=== PATIENT | male | born 1955 | race Caucasian/White ===

== ENCOUNTER 2021-07-22 12:59 | Outpatient (RCR) | payer BC, SELFPAY ==
--- NOTE | 2021-07-22 14:51 | REHOPWC ---
SEATING EVALUATION NOTIFICATION This is to notify provider that Carl May participated in a power mobility device evaluation today. Recommendations were made specific to patient's needs. Seating Assessment documentation has been completed for detailed information on required equipment. The mobility device provider for this case is Reza from [facility] . Please note that no further care plan will be developed on this account. [facility] you [facility]. Please review, sign, date and return this discharge summary WILLIAM. I have been updated about the patient's current status and I agree with discharge from the above service at this time. Referring Physician Date
== END 2021-07-22 16:53 | disposition home or self-care (01) ==
LOC: ANHPT 12:59
PROVIDERS: PCP Internal Medicine
DX: M19.90 Unspecified osteoarthritis, unspecified site (principal); E11.65 Type 2 diabetes mellitus with hyperglycemia
CPT/HCPCS: 97163

== ENCOUNTER 2021-09-04 07:58 | Outpatient (CLI) | payer BC, SELFPAY ==
--- NOTE | ~2021-09-04 | XR_ITS ---
EXAMINATION: XR UGI w barium swallow EXAM DATE: 09/04/2021 09:17 INDICATION: R06.6 -Eating induced hiccuping, progressing frequency. TECHNIQUE: Limited single contrast barium esophagram and upper GI examination was performed by radiol ogchristy Salcido M.D., according to patient abilities. Patient could not support upon weight while s tanding, table position approximately 45 degrees, and then completely horizontal after ingestion. Pul sed dose reduction fluoroscopy was used with fluoroscopic time of 0.4 minutes. The DAP for this proc edure was 120 Gycm2. A total of 51 images obtained for the exam. There is no prior study for compar federico. FINDINGS: There are severe esophageal tertiary contractions, presbyesophagus. No esophageal stricture s or diverticula. Contrast did reflux from the stomach into the esophagus, and although not definitiv melva demonstrated, small sliding gastroesophageal hiatal hernia not excludable. No gross stomach abnor mality, duodenal bulb is unremarkable. IMPRESSION: Severe presbyesophagus, reflux. Reviewed, dictated and finalized at location A.
== END 2021-09-04 07:59 | disposition home or self-care (01) ==
PROVIDERS: PCP Internal Medicine; Visit Provider Internal Medicine
DX: R06.6 Hiccough (principal); K22.89 Other specified disease of esophagus; K21.9 Gastro-esophageal reflux disease without esophagitis
CPT/HCPCS: 74240

== ENCOUNTER 2021-09-19 12:24 | Outpatient (CLI) | payer BC, SELFPAY ==
--- NOTE | ~2021-09-19 | XR_ITS ---
EXAMINATION:XR_[id number]_CR DATE: 09/19/2021 12:54 INDICATION: Cervicalgia TECHNIQUE: AP, lateral, lateral swimmers and odontoid views of the cervical spine are provided. COMPARISON: None FINDINGS: There are 2 mm of anterolisthesis of C2 on C3. The odontoid is intact. No fracture is ident ified. The vertebral body heights are maintained. There is severe loss of intervertebral disc space h eight from C3-4 through C7-T1. There is advanced facet and uncovertebral joint osteoarthritis through out the cervical spine. Prevertebral soft tissues are normal. IMPRESSION: 1. Severe cervical spondylosis without acute findings. Reviewed, dictated and finalized at location F.
== END 2021-09-19 12:25 | disposition home or self-care (01) ==
LOC: ANHIMG 12:29
PROVIDERS: PCP Internal Medicine; Visit Provider Internal Medicine
DX: M47.892 Other spondylosis, cervical region (principal)
CPT/HCPCS: 72040

== ENCOUNTER 2021-10-29 09:51 | Outpatient (CLI) | payer BC, SELFPAY ==
[2021-10-29 10:39] LABS: Hemoglobin A1C 7.6 % (<5.7)
[2021-10-29 10:42] LABS: Alanine Aminotransferase 26 U/L (6-50); Albumin Level 4.4 g/dL (3.5-5.1); Alkaline Phosphatase 101 U/L (38-126); Anion Gap 6 mmol/L (8-16); Aspartate Amino Transferase 29 U/L (17-59); Bilirubin,Total 0.3 mg/dL (0.2-1.3); Blood Urea Nitrogen 18 mg/dL (9-20); Carbon Dioxide 29 mmol/L (22-30); Chloride 104 mmol/L (98-107); Cholesterol 202 mg/dL (0-200); Estimated Glomerular Filt Rate > 60; Glucose 196 mg/dL (65-110); HDL Direct 37 mg/dL; Potassium 4.1 mmol/L (3.4-5.0); Sodium 139 mmol/L (137-145); Triglycerides 225 mg/dL (<150)
[2021-10-29 10:53] LABS: LDL Cholesterol Direct 114 mg/dL
[2021-10-29 11:12] LABS: Prostate Specific Antigen 1.1 ng/mL (< OR = 4.0)
== END 2021-10-29 09:52 | disposition home or self-care (01) ==
LOC: ANHLAB 09:54
PROVIDERS: PCP Internal Medicine; Visit Provider Nurse Practitioner
DX: E78.5 Hyperlipidemia, unspecified (principal); R63.5 Abnormal weight gain; E11.43 Type 2 diabetes mellitus with diabetic autonomic (poly)neuropathy; Z12.5 Encounter for screening for malignant neoplasm of prostate
CPT/HCPCS: 36415; 80053; 80061; 83036; 84153; 84443; G0103

== ENCOUNTER 2021-12-26 00:17 | Inpatient (IN) | payer BC, SELFPAY ==
[2021-12-26] VITALS (18 sets, daily range): BP systolic 103–140; BP diastolic 65–88; PULSE 46–108; RESP 18–26; TEMP 36.8–37.7; O2SAT 94–97; BMI 38.7; BMI 40.6
--- NOTE | ~2021-12-26 | XR_ITS ---
EXAMINATION: XR chest PICC line Exam Date/Time: 12/30/2021 14:20 CDT HISTORY: Double check placement of PICC, POSSIBLY MOVED? Comparison: 12/29/2021. RESULT: Lines, tubes, and devices: Left upper extremity PICC terminates in the left subclavian vein. Lungs and pleura: Crowding, otherwise clear. Cardiomediastinal silhouette: Stable. Other: No acute osseous or upper abdominal finding. IMPRESSION: Left upper extremity PICC terminates in the left subclavian vein, consider advancing by 12 cm. Reviewed, dictated and finalized at location K. IMPRESSION: Left upper extremity PICC terminates in the left subclavian vein, consider adva ncing by 12 cm.
--- NOTE | ~2021-12-26 | CT_ITS ---
CT OF RIGHT upper extremity EXAMINATION: CT UE RT wo con DATE: 12/31/2021 20:32 INDICATION: Swelling, cellulitis. TECHNIQUE: Computed tomography (CT) of the right upper extremity was performed without intravenous co ntrast. Automated exposure control and iterative reconstruction technique were employed. The dose-mitchell gth product was 1060.31 mGy-cm. COMPARISON: None FINDINGS: Limitations: Portions of the posterior elbow excluded from the [id number] coronal reformats. Bones: Moderate degenerative changes in the hand and wrist. Mild degenerative change in the elbow. Ot herwise included osseous structures are within normal limits. There are no erosive or destructive bon y lesions. Soft Tissues:Extensive dermal thickening, subcutaneous fat stranding, and subcutaneous fluid with lay ering mostly posteriorly along the superficial fascial layers from the level of the mid arm through t he forearm and extending into the hand. Hypodense areas in the triceps muscular structure as well as the proximal aspect of portions of the wrist extensor group, where there are deeper inflammatory dozier ges. Fluid: Extensive septations fluid as described, focal walled off fluid collections are difficult to e xclude without contrast. IMPRESSION: Limited noncontrast examination. Extensive cellulitis and edema of the right arm, with findings suspi cious for myositis in the arm and forearm. No focal fluid collection although sensitivity for abscess is low without contrast. No subcutaneous emphysema, noting that necrotizing fasciitis remains a clin ical diagnosis. Reviewed, dictated and finalized at location K. IMPRESSION: Limited noncontrast examination. Extensive cellulitis and edema of the right ar m, with findings suspicious for myositis in the arm and forearm. No focal fluid collection although sensitivity for abscess is low without contrast. No subcut aneous emphysema, noting that necrotizing fasciitis remains a clinical diagnosi s.
--- NOTE | ~2021-12-26 | XR_ITS ---
EXAMINATION: XR forearm RT 2V DATE: 01/02/2022 09:15 INDICATION: Right forearm erythema and draining pus. TECHNIQUE: 2 views of right forearm were obtained. COMPARISON: CT 12/31/2021 FINDINGS: Bone alignment is normal. No fracture. There is severe osteoarthritis of radiolunate joint and first carpometacarpal joint. No elbow joint effusion. There is soft tissue swelling of the forear m. IMPRESSION: 1. Soft tissue swelling of the forearm. No evidence of osteomyelitis. Reviewed, dictated and finalized at location A.
--- NOTE | ~2021-12-26 | XR_ITS ---
EXAMINATION: XR chest port-a-cath/central DATE: 01/01/2022 15:03 INDICATION: Central line placement. TECHNIQUE: A single frontal view of the chest was obtained. COMPARISON: Chest single view 12/30/2021 FINDINGS: There is mild elevation of left hemidiaphragm. No pneumonia, pleural effusion, or pneumotho rax. The heart size is normal. A right internal jugular central venous catheter is seen with tip in t he proximal right atrium. There is an old healed fracture of right clavicle. IMPRESSION: 1. Central line tip in proximal right atrium. Reviewed, dictated and finalized at location A.
--- NOTE | ~2021-12-26 | US_ITS ---
EXAMINATION: US soft tissue UE RT DATE: 01/02/2022 13:04 INDICATION: Abscess formation at the right arm TECHNIQUE: Multiple grayscale and Doppler ultrasound images of the right arm were obtained. COMPARISON: CT dated 12/31/2021 FINDINGS: There is a large complex fluid collection situated in the deep subcutaneous tissues along the superfi cial muscular fascia. Given the appearance and provided clinical history this would be most consisten t with an abscess. The fluid collection was too large to be included on a single image but per discus suellen with the kiln worker the collection was located at the posterior aspect of the arm beginning jus t above the elbow in the distal upper arm and extended caudally to approximately the mid forearm wher e it was unable to be imaged due to a large draining open wound at this location. On transaxial imagi ng the fluid collection measures at least 7 cm in medial to lateral width and up to a centimeter in t hickness Vascular flow is seen within vessels extending across portions of the complex fluid collecti on. The superficial margin of the fluid collection is irregular with an indistinct transition between the more organized-appearing deeper portion of the fluid collection and with a defined transition to a region of likely phlegmonous change with fluid and hypoechoic edema interspersed between lobules o f the cutaneous fat. IMPRESSION: 1. Large abscess in the deep subcutaneous tissues along the posterior aspect of the distal right uppe r arm and proximal to mid right forearm. Reviewed, dictated and finalized at location A. IMPRESSION: 1. Large abscess in the deep subcutaneous tissues along the posterior aspect of the distal right upper arm and proximal to mid right forearm.
--- NOTE | ~2021-12-26 | XR_ITS ---
EXAMINATION: XR chest PICC line DATE: 12/29/2021 11:57 INDICATION: Verify PICC line placement TECHNIQUE: frontal view of the chest was obtained. COMPARISON: Chest radiograph dated 12/26/21 FINDINGS: Left upper extremity peripherally inserted central venous catheter (PICC) tip at the mid superior ve na cava. Unchanged elevation of the left hemidiaphragm. No focal airspace opacities, pulmonary edema, pleural effusion or pneumothorax. Old healed right clavicle fracture. IMPRESSION: 1. Left PICC line tip in the midsuperior vena cava. 2. Unchanged elevation the left hemidiaphragm. No acute cardiopulmonary disease. Reviewed, dictated and finalized at location A. IMPRESSION: 1. Left PICC line tip in the midsuperior vena cava. 2. Unchanged elevation the left hemidiaphragm. No acute cardiopulmonary disease .
--- NOTE | ~2021-12-26 | US_ITS ---
US renal BI 01/09/2022 14:23 Procedure: Realtime transabdominal ultrasound of the kidneys and bladder. Indication: Acute renal insufficiency Comparison: No prior studies for comparison. Findings: Renal echotexture is normal bilaterally without hydronephrosis, contour deforming mass or r enal calculus. The right kidney measures 10.2 cm and left kidney measures 9.6 cm. Bladder within nor mal limits. Impression: 1: Unremarkable renal ultrasound. No stones, masses or hydronephrosis. Reviewed, dictated and finalized at location A. Impression: 1: Unremarkable renal ultrasound. No stones, masses or hydronephrosis.
--- NOTE | ~2021-12-26 | US_ITS ---
EXAMINATION: US venous doppler UE RT DATE: 12/26/2021 13:02 INDICATION: Right arm pain TECHNIQUE: Johnson scale images with and without compression and Doppler images of the right upper extre mity veins were obtained. COMPARISON: None. FINDINGS: The right internal jugular vein, subclavian vein, axillary vein, brachial veins, basilic vein, cephal ic vein, radial vein, and ulnar vein are patent. IMPRESSION: 1. Patent right upper extremity veins. No evidence of deep venous thrombosis. Reviewed, dictated and finalized at location A.
--- NOTE | ~2021-12-26 | US_ITS ---
EXAMINATION: US venous doppler [facility] DATE: 12/31/2021 15:01 INDICATION: Lower limb swelling. TECHNIQUE: Grayscale ultrasound images without and with compression and Doppler ultrasound images of the bilateral lower extremity veins were obtained. COMPARISON: None. FINDINGS: The visualized portions of right common femoral vein, profunda (deep) femoral vein, femoral vein, pop liteal vein, peroneal veins, posterior tibial veins, and greater saphenous vein outflow are patent. T here is a moderate-sized Vargas's cyst on the right. The visualized portions of left common femoral vein, profunda femoral vein, femoral vein, popliteal v ein, peroneal veins, posterior tibial veins, and greater saphenous vein outflow are patent. IMPRESSION: 1. No deep venous thrombosis. 2. Moderate-sized Vargas's cyst on the right. Reviewed, dictated and finalized at location A.
--- NOTE | ~2021-12-26 | XR_ITS ---
XR chest 1V portable 12/26/2021 22:42 Indication: Shortness of breath Procedure: AP portable chest Comparison: No prior studies for comparison. Findings: Cardiomegaly. No focal air space disease, pulmonary edema, pleural effusion or suspected pneumothorax. No acute oss eous abnormality. Healed right midclavicular fracture. There is right paratracheal soft tissue which is likely related to vascular ectasia and technique. Impression: 1: No acute cardiopulmonary disease. Reviewed, dictated and finalized at location A. Impression: 1: No acute cardiopulmonary disease.
[2021-12-26 00:54] LABS: Hematocrit 37.6 % (42.0-52.0); Hemoglobin 12.3 g/dL (14.0-18.0); Mean Corpuscular HGB Conc 32.7 g/dl (32-36); Mean Corpuscular Volume 91.7 fl (80-100); Mean Platelet Volume 10.8 fl (7.4-10.4); Platelet Count Result 156 k/mm3 (150-375); Red Cell Distribution Width 12.6 % (11.5-14.5); White Blood Count 19.4 K/mm3 (4.5-10.0)
[2021-12-26 01:04] LABS: Lactic Acid Reflex 2.4 mmol/L (0.7-2.0)
[2021-12-26 01:10] LABS: Alanine Aminotransferase 22 U/L (6-50); Albumin Level 3.5 g/dL (3.5-5.1); Alkaline Phosphatase 131 U/L (38-126); Anion Gap 14 mmol/L (8-16); Aspartate Amino Transferase 36 U/L (17-59); Blood Urea Nitrogen 33 mg/dL (9-20); Calcium 8.4 mg/dL (8.4-10.2); Carbon Dioxide 24 mmol/L (22-30); Chloride 94 mmol/L (98-107); Estimated Glomerular Filt Rate 47; Glucose 272 mg/dL (65-110); Potassium 4.3 mmol/L (3.4-5.0); Sodium 132 mmol/L (137-145)
[2021-12-26 01:14] LABS: INR 1.2; Prothrombin Time 15.2 Seconds (11.1-14.7)
[2021-12-26 01:18] LABS: Band Neutrophils Percent 12 % (0-6); Lymphocytes Absolute Manual 0.58 K/mm3 (1.1-4.5); Monocytes Absolute Manual 1.16 K/mm3 (0.1-0.90); Monocytes Percent Manual 6 % (3-9); Neutrophils Absolute Manual 17.65 K/mm3 (1.3-6.7); Neutrophils Percent Manual 79 % (46-73); Platelet Estimate Adequate (Adequate); Total Cells Counted 100
[2021-12-26] MEDS: LACTATED RINGERS 1,000 ML 999 ML IV CONT (01:39)
[2021-12-26 01:49] LABS: CRP 43.7 mg/dL (<1.0)
--- NOTE | 2021-12-26 01:57 | ED.EXTPRO ---
HPI - Extremity Problem General Chief complaint: Extremity Problem,Nontraumatic Stated complaint: RIGHT ARM SWELLING Time Seen by Provider: 12/26/21 00:21 History of Present Illness HPI Narrative: 58-year-old male presenting with right arm pain, he states that he had hit it against a door 3 days ago, and he noticed afterwards that his forearm seem to be hurting, and over the last few days it has started getting red, swollen, and the swelling has started moving this arm to the point where it is now past his elbow. He thinks that it might be a blood clot though he has never had 1 before he googled some pictures and thought it looked similar. Endorsing some chills. No nausea or vomiting. He has been taking [place] with some improvement in his symptoms. Related Data Home Medications Medication Instructions Recorded Confirmed levothyroxine 50 mcg capsule 50 mcg PO DAILY 04/23/21 11/27/21 Allergies Allergy/AdvReac Type Severity Reaction Status Date / Time No Known Allergies Allergy Verified 11/27/21 13:51 Review of Systems Review of Systems: CONST: Chills HEENT: No sore throat C/V: No chest pain RESP: No cough GI: No nausea or vomiting : No dysuria. M/S: No joint pain. SKIN: Redness swelling to his right arm NEURO: No focal numbness or weakness PSYCH: [No depression] PMFSH Past Medical History Medical History Anxiety Arthritis Atrial fib/flutter, transient Charcot Acacia Tooth muscular atrophy COVID-19 Diabetes Heartburn High cholesterol History of fracture of tibia Hypertension Peripheral autonomic neuropathy due to diabetes mellitus Skin ulcer SOB (shortness of breath) on exertion Vision changes Family History Family History Father Alcoholism Diabetes mellitus Mother Diabetes mellitus Heart disease Sibling Alcoholism Diabetes mellitus Hypertension Other Arthritis Depression HLD (hyperlipidemia) Kidney disorder Neuropathy Social History Social History Smoking status: Never smoker Second hand tobacco smoke exposure: No Alcohol intake: never Substance use: never Substance use type: does not use Gender identity (if verbalized by the patient): Male Exam Narrative: EXAMINATION OF ORGAN SYSTEMS/BODY AREAS: Constitutional: Vital signs per nursing GENERAL:[No acute distress, non-toxic appearing.] HEAD: Normal with no signs of head trauma. EYES: EOMI, conjunctiva normal ENT: Hearing grossly intact LUNGS: Nonlabored breathing. HEART: [Regular rate and rhythm] ABD: [Soft], nontender EXT: Normal range of motion SKIN: Diffuse induration, erythema, tenderness and warmth to the right upper extremity, with what appears to be a punctate wound to the forearm, and extension of redness up past the elbow NEURO: [Alert and oriented x 3. No gross focal sensory or strength deficits.] PSYCH: Normal affect Course Vital Signs Vital signs: Vital Signs Temperature 99.8 F H 12/26/21 00:17 Pulse Rate 88 12/26/21 00:17 Respiratory Rate 20 12/26/21 00:17 Blood Pressure 137/79 12/26/21 00:17 Pulse Oximetry 97 12/26/21 00:17 Oxygen Delivery Room Air 12/26/21 00:17 Temperature 99.8 F H 12/26/21 00:17 Pulse Rate 88 12/26/21 00:17 Respiratory Rate 20 12/26/21 00:17 Blood Pressure 137/79 12/26/21 00:17 Pulse Oximetry 97 12/26/21 00:17 Oxygen Delivery Room Air 12/26/21 00:17 MDM - Extremity (Nontraumatic) MDM Narrative Medical decision making narrative: 58-year-old male presenting with right arm pain, vital signs notable for slightly elevated temperature, exam notable for indurated erythema and tenderness to the right upper extremity consistent with likely cellulitis, versus less likely DVT, labs including blood cultures obtained, patient started on antibiotics and IV fluids Labs notable
[2021-12-26] MEDS: MORPHINE SULFATE (*CRX) 4 MG/ML INJ IV PUSH (02:15)
[2021-12-26 02:29] LABS: SARS-CoV-2 RNA PCR Negative
--- NOTE | 2021-12-26 02:54 | ADMGEN ---
This patient, Carl Hankins September, was admitted to 3 Med Surg Room 331-01 @0235. Patient/family oriented to hospital policies and general routines including ID bracelet, bed and alarms, visiting hours, pain management, procedures, bathroom and other care routines, personal items, smoking policy, room service/diet, and visiting hours. Information on how to activate the Rapid Response Team has been discussed. Patient/Family are encouraged to report perceived risks to care and to ask questions if they do not understand what they are told or what they should do.
[2021-12-26 03:48] LABS: Reflex Lactic Acid Yes or No Add Lactic
--- NOTE | 2021-12-26 03:51 | PM.IMHP ---
H&P: HPI History of Present Illness Date/Time: 12/26/21 03:51 Chief Complaint: right arm swelling Narrative: this is a 66-year-old male with past medical history significant for type 2 diabetes mellitus, orally controlled, gastroesophageal reflux disease, hypothyroidism, Nahqcrg-Djedv-Ufczb muscular atrophy, peripheral diabetic neuropathy. patient presents to the emergency room due to right upper extremity swelling, redness tenderness, for the last 3 days or so worse in the last day patient unable to lift his arm above his shoulder and unable to bend his arm at the elbow has had some chills, denies night sweats, denies nausea, vomiting, abdominal pain, insect bite, animal bite, wounds. preliminary workup was significant for lactic acid of 2.6 leukocyte count of 19,000. patient has been admitted for further evaluation management and treatment. Review of Systems Review of Systems: Right arm swelling, redness ,tenderness, warmth. Constitutional: Constitutional: Reports chills and Denies night sweats Eyes: Eyes: Denies change in vision ENT: Denies dysphagia and Denies odynophagia Cardiovascular: Cardiovascular: Denies chest pain, Denies syncope, Denies irregular heart rhythm, Denies lightheadedness, Denies palpitations and Denies dyspnea on exertion Gastrointestinal: Gastrointestinal: Denies abdominal pain, Denies dyspepsia, Denies heartburn, Denies diarrhea and Denies vomiting Genitourinary: Genitourinary: Denies dysuria Musculoskeletal: Musculoskeletal: Reports other ( right upper extremity swelling with limited range of motion warmth redness) Integumentary/Breasts: Skin/Breast: Reports swelling, Reports erythema, Reports skin pain and Reports skin swelling Neurologic: Denies vertigo, Denies dizziness, Denies focal weakness and Denies Sensory deficit (Neuro) Psychiatric: Psychiatric: Reports no additional psychiatric complaints and Reports as per HPI Endocrine: Endocrine: Denies cold intolerance, Denies fatigue, Denies flushing, Denies heat intolerance, Denies polyphagia, Denies polydipsia and Denies palpitations Hematologic/Lymphatic: Hematologic/Lymphatic: Reports no additional hematologic/lymphatic complaints and Reports as per HPI Allergic/Immunologic: Allergic/Immunologic: Reports no additional allergic/immunologic complaints and Reports as per HPI [facility] Past Medical History Medical History (Updated 12/26/21 @ 05:13 by Jg Cooper MD) Anxiety Arthritis Atrial fib/flutter, transient Charcot Acacia Tooth muscular atrophy COVID-19 Diabetes Heartburn High cholesterol History of fracture of tibia Hypertension Peripheral autonomic neuropathy due to diabetes mellitus Skin ulcer SOB (shortness of breath) on exertion Vision changes Family History Family History Father Alcoholism Diabetes mellitus Mother Diabetes mellitus Heart disease Sibling Alcoholism Diabetes mellitus Hypertension Other Arthritis Depression HLD (hyperlipidemia) Kidney disorder Neuropathy Social History Social History Smoking status: Never smoker Second hand tobacco smoke exposure: No Alcohol intake: never Substance use: never Substance use type: does not use Gender identity (if verbalized by the patient): Male Spiritual care concerns: No Meds Home Medications and Allergies Home Medications Medication Instructions Recorded Confirmed Type levothyroxine 50 mcg capsule 50 mcg PO DAILY 04/23/21 12/26/21 History amlodipine 5 mg tablet 5 mg PO DAILY #30 tabs 09/26/21 12/26/21 Rx gabapentin 100 mg capsule 100 mg PO Q8H #90 caps 09/26/21 12/26/21 Rx meloxicam 15 mg tablet 15 mg PO DAILY #30 tabs 09/26/21 12/26/21 Rx pantoprazole 20 mg tablet,delayed 20 mg PO QAM #90 tabs 10/03/21 12/26/21 Rx release metformin 500 mg tablet 500 mg PO DAILY #90 tabs 10/29/21 12/26/21 Rx amiodarone 200 mg tablet 20
[2021-12-26] MEDS: IPRATROPIUM BR 0.02% INH SOLN 0.5 MG/2.5 ML VIAL INHALATION ×2 (05:51→23:16)
[2021-12-26] MEDS: ALBUTEROL SULFATE NEB 2.5 MG/3 ML INH INHALATION (05:51)
[2021-12-26] MEDS: HYDROcodone/acetaminophen (*CRX) 10-325 MG TABLET 1 TAB PO (06:16)
[2021-12-26 06:46] LABS: Basophils Absolute Auto 0.1 K/mm3 (0.0-0.1); Basophils Percent Auto 0.8 % (0.2-1.2); Eosinophils Absolute Auto 0.1 K/mm3 (0-0.3); Eosinophils Percent Auto 0.4 % (0-4.4); Hematocrit 37.3 % (42.0-52.0); Hemoglobin 12.3 g/dL (14.0-18.0); Immature Granulocyte Percent A 1.4 % (0-0.5); Lymphocytes Absolute Auto 0.46 K/mm3 (0.9-3.2); Lymphocytes Percent Auto 3.1 % (18.3-44.2); Mean Corpuscular Hemoglobin 30.2 pg (26-34); Mean Corpuscular Volume 91.6 fl (80-100); Mean Platelet Volume 11.1 fl (7.4-10.4); Monocytes Absolute Auto 1.1 K/mm3 (0.1-0.6); Monocytes Percent Auto 7.3 % (2.6-8.5); Neutrophils Absolute Auto 12.9 K/mm3 (1.3-6.7); Platelet Count Result 145 k/mm3 (150-375); Red Blood Count 4.07 M/mm3 (4.6-6.20); Red Cell Distribution Width 12.7 % (11.5-14.5); White Blood Count 14.8 K/mm3 (4.5-10.0)
[2021-12-26] MEDS: LEVOTHYROXINE SODIUM 50 MCG TABLET PO (06:55)
[2021-12-26] MEDS: GABAPENTIN 100 MG CAPSULE PO ×3 (06:55→21:07)
[2021-12-26 07:14] LABS: Anion Gap 13 mmol/L (8-16); Blood Urea Nitrogen 33 mg/dL (9-20); Calcium 8.2 mg/dL (8.4-10.2); Carbon Dioxide 23 mmol/L (22-30); Chloride 95 mmol/L (98-107); Estimated CRCL calculation 62 ml/min; Estimated Glomerular Filt Rate 47; Glucose 238 mg/dL (65-110); Magnesium 1.8 mg/dL (1.6-2.3); Phosphorus 3.4 mg/dL (2.5-4.5); Sodium 131 mmol/L (137-145)
--- NOTE | 2021-12-26 08:25 | PM.IMPN ---
Progress Note: A&P Assessment and Plan (1) Sepsis: Code(s): A41.9 - Sepsis, unspecified organism Status: Acute Assessment and Plan: Monitor I&Os, vital signs, neuro status and patient is a fall risk Monitor serum electrolytes, CBC, WBC, temperature curve and follow cultures Provide IV fluid resuscitation for hemodynamic stability IV Vancomycin, consult pharmacy to dose, send Vancomycin trough levels before 4th dose, Zosyn 3.375mg Q 6 hours P.r.n. 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 Status: Acute Assessment and Plan: unchanged (5) Essential hypertension: Code(s): I10 - Essential (primary) hypertension Status: Acute Assessment and Plan: continue home meds (6) Type 2 diabetes mellitus: Qualifiers: Diabetes mellitus complication detail: with autonomic neuropathy Diabetes mellitus complication status: with neurologic complications Diabetes mellitus group home insulin use: without group home use Qualified Code(s): E11.43 - Type 2 diabetes mellitus with diabetic autonomic (poly)neuropathy Code(s): E11.9 - Type 2 diabetes mellitus without complications Status: Acute Assessment and Plan: insulin sliding scale as needed 1800 calorie carb consistent diet (7) URSULA (acute kidney injury): Code(s): N17.9 - Acute kidney failure, unspecified Status: Acute Assessment and Plan: likely secondary to sepsis receiving IV fluids repeat BMP in a.m. Subjective Date/time seen: 12/26/21 08:25 Patient was evaluated this morning at bedside. He was sitting upright eating breakfast. The patient continues receive IV fluids for an elevated lactic acid of 3.0, repeat lactic acid in 6 hours. He receives IV vancomycin and Zosyn for cellulitic right upper extremity. Appears extremely swollen. Patient is able to make a fist with his hand although is minimally painful. Patient does report slight improvement since yesterday since starting the antibiotics. Will continue IV antibiotics and discuss length of stay with the patient. Monitor renal function as CSF slight URSULA as well. Pulse rate is slightly up at 10:29 a.m. respiration rate 24 and he does. Afebrile this time , however the patient did run a slight temp of 99.8? around midnight.. Vital signs otherwise stable. No acute complaints by RN at bedside. Discussed possible markings for cellulitic upper extremity with RN. They will tripp is right upper extremity in order to monitor possible regression of cellulitic appearance. Review of Systems Review of Systems: All systems reviewed & are unremarkable except as noted in HPI and below Exam Narrative: General: No acute distress. Mental Status: Awake, alert and oriented to person, place, and time with clear speech. Skin: Skin in warm, dry and intact without rashes or lesions On left upper extremity, right and left lower extremity.. Right upper extremity swollen, erythema, warmth and 2 to 3+ pitting edema from his hand up to his right shoulder. No weeping noted. Head: Normocephalic and atraumatic. Eyes: Conjunctivae are clear without exudates or hemorrhage. Sclera is non-icteric. EOM are intact, PERRLA. Ears: The external ear and canal are non-tender and without swelling or discharge. Nose: Nasal mucosa is pink and moist. Septum midline. Nares patent bilaterally. Throat: Oral mucosa pink and moist with good dentition. Tongue midline. Neck: The neck sup
[2021-12-26] MEDS: MICONAZOLE NITRATE 2% CREAM 30 GM TUBE 1 APPLIC TOPICAL (08:26)
[2021-12-26] MEDS: MELOXICAM 7.5 MG TABLET 15 MG PO (08:28)
[2021-12-26] MEDS: PANTOPRAZOLE SOD SESQUIHYDRATE 20 MG TAB PO (08:28)
[2021-12-26] MEDS: ENOXAPARIN 40 MG/0.4 ML SYRINGE SUB-Q (09:25)
[2021-12-26] MEDS: SODIUM CHLORIDE 0.9% IV 1,000 ML 100 ML IV CONT ×2 (10:52→23:58)
[2021-12-26 12:09] LABS: Erythrocyte Sedimentation Rate 61 mm/hr (0-20)
[2021-12-26 12:30] LABS: Hemoglobin A1C 8.5 % (<5.7)
--- NOTE | 2021-12-26 15:39 | PCPTNOTE ---
Attempted PT evaluation, Patient refused stating he does not want the DETENTION he lives in to have any leverage against him to return to his apartment. RN aware. Will follow.
[2021-12-26] MEDS: AMIODARONE HCL 200 MG TABLET PO (16:46)
[2021-12-26] MEDS: amLODIPine BESYLATE 5 MG TABLET PO (21:07)
[2021-12-26] MEDS: HYDROmorphone HCL INJ (*CRX) 1 MG/ML SYR IV PUSH (21:07)
[2021-12-26] MEDS: ALBUTEROL SULFATE NEB 2.5 MG/3 ML INH 1.25 MG INHALATION (23:16)
[2021-12-27] MEDS: HYDROmorphone HCL INJ (*CRX) 1 MG/ML SYR IV PUSH ×3 (02:29→21:24)
[2021-12-27 02:43] VITALS: O2SAT 97
[2021-12-27 05:26] VITALS: BP 139/80; PULSE 89; RESP 20; TEMP 36.7; O2SAT 91
[2021-12-27] MEDS: LEVOTHYROXINE SODIUM 50 MCG TABLET PO (05:58)
[2021-12-27] MEDS: GABAPENTIN 100 MG CAPSULE PO ×3 (05:58→21:24)
[2021-12-27 06:25] LABS: Hematocrit 37.6 % (42.0-52.0); Hemoglobin 12.5 g/dL (14.0-18.0); Mean Corpuscular HGB Conc 33.2 g/dl (32-36); Mean Corpuscular Hemoglobin 30.5 pg (26-34); Mean Corpuscular Volume 91.7 fl (80-100); Mean Platelet Volume 11.1 fl (7.4-10.4); Platelet Count Result 183 k/mm3 (150-375); Red Cell Distribution Width 12.6 % (11.5-14.5); White Blood Count 17.2 K/mm3 (4.5-10.0)
[2021-12-27 06:36] LABS: Lactic Acid Reflex 2.3 mmol/L (0.7-2.0)
--- NOTE | 2021-12-27 06:54 | PM.IMPN ---
Progress Note: A&P Assessment and Plan (1) Sepsis: Code(s): A41.9 - Sepsis, unspecified organism Status: Acute Assessment and Plan: Monitor I&Os, vital signs, neuro status and patient is a fall risk Monitor serum electrolytes, CBC, WBC, temperature curve and follow cultures Provide IV fluid resuscitation for hemodynamic stability IV Vancomycin, consult pharmacy to dose, send Vancomycin trough levels before 4th dose, Zosyn 3.375mg Q 6 hours P.r.n. Tylenol, Zofran, and melatonin Pulling a warm like appearance out of his arm approximately 1 week ago He denies any known consuming water that was consumed. Consider this in the differential if patient does not respond to the antibiotics. 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 Status: Acute Assessment and Plan: unchanged (5) Essential hypertension: Code(s): I10 - Essential (primary) hypertension Status: Acute Assessment and Plan: continue home meds (6) Type 2 diabetes mellitus: Qualifiers: Diabetes mellitus complication detail: with autonomic neuropathy Diabetes mellitus complication status: with neurologic complications Diabetes mellitus manager intermediate insulin use: without senior living use Qualified Code(s): E11.43 - Type 2 diabetes mellitus with diabetic autonomic (poly)neuropathy Code(s): E11.9 - Type 2 diabetes mellitus without complications Status: Acute Assessment and Plan: insulin sliding scale as needed 1800 calorie carb consistent diet (7) URSULA (acute kidney injury): Code(s): N17.9 - Acute kidney failure, unspecified Status: Acute Assessment and Plan: likely secondary to sepsis receiving IV fluids repeat BMP in a.m. Subjective Date/time seen: 12/27/21 06:54 Your to have a spear although he has not regressed from the skin marking lines were performed by nursing staff on 12/26/2021. Patient continues on IV antibiotics, did he seems to improve however CRP increased. continue with IV antibiotics peer discussing the patient's plan of care with him patient reported that it appeared that he pulled out a worm underneath his skin. Patient denies any recent travel or drinking contaminated water. With tenuous IV antibiotic treatment however may consider possible RA under the skin creating cellulitic appearance. Of note patient has no weeping on his right arm, patient has scratched in 3 areas on his arms and appears to be weeping Review of Systems Review of Systems: All systems reviewed & are unremarkable except as noted in HPI and below Exam Narrative: General: No acute distress. Mental Status: Awake, alert and oriented to person, place, and time with clear speech. Skin: Skin in warm, dry and intact without rashes or lesions On left upper extremity, right and left lower extremity.. Right upper extremity swollen, erythema, warmth and 2 to 3+ pitting edema from his hand up to his right shoulder. When the lateral aspect of the right arm Head: Normocephalic and atraumatic. Eyes: Conjunctivae are clear without exudates or hemorrhage. Sclera is non-icteric. EOM are intact, PERRLA. Ears: The external ear and canal are non-tender and without swelling or discharge. Nose: Nasal mucosa is pink and moist. Septum midline. Nares patent bilaterally. Throat: Oral mucosa pink and moist with good dentition. Tongue midline. Neck: The neck supple without adenopathy. Trachea midline. No JVD. Cardiac: S1 and S2 regular rate and rhythm. No murmurs, gallops, or rubs auscultated. Respiratory: Chest wall symmetric, non
[2021-12-27] MEDS: HYDROcodone/acetaminophen (*CRX) 10-325 MG TABLET 1 TAB PO ×2 (06:56→15:45)
[2021-12-27 08:00] VITALS: PULSE 89; RESP 20; O2SAT 91
[2021-12-27] MEDS: MICONAZOLE NITRATE 2% CREAM 30 GM TUBE 1 APPLIC TOPICAL (08:06)
[2021-12-27] MEDS: ENOXAPARIN 40 MG/0.4 ML SYRINGE SUB-Q (08:06)
[2021-12-27] MEDS: PANTOPRAZOLE SOD SESQUIHYDRATE 20 MG TAB PO (08:06)
[2021-12-27] MEDS: MELOXICAM 7.5 MG TABLET 15 MG PO (08:06)
[2021-12-27 08:21] LABS: Alanine Aminotransferase 22 U/L (6-50); Alkaline Phosphatase 115 U/L (38-126); Anion Gap 9 mmol/L (8-16); Aspartate Amino Transferase 30 U/L (17-59); Bilirubin,Total 0.7 mg/dL (0.2-1.3); Blood Urea Nitrogen 43 mg/dL (9-20); Calcium 7.9 mg/dL (8.4-10.2); Carbon Dioxide 24 mmol/L (22-30); Chloride 91 mmol/L (98-107); Estimated CRCL calculation 55 ml/min; Estimated Glomerular Filt Rate 40; Glucose 228 mg/dL (65-110); Magnesium 1.8 mg/dL (1.6-2.3); Potassium 4.4 mmol/L (3.4-5.0); Sodium 124 mmol/L (137-145)
[2021-12-27 08:23] LABS: CRP > 45.0 mg/dL (<1.0)
[2021-12-27 09:18] LABS: Reflex Lactic Acid Yes or No Add Lactic
[2021-12-27 09:50] LABS: Lactic Acid 2.1 mmol/L (0.7-2.0)
[2021-12-27] MEDS: SODIUM CHLORIDE 0.9% IV 1,000 ML 100 ML IV CONT (09:54)
--- NOTE | 2021-12-27 10:01 | PC.NURSE ---
IV and fluids restarted this shift
--- NOTE | 2021-12-27 10:25 | PC.NURSE ---
RUE elevated, pt declining at this time.
[2021-12-27 14:00] VITALS: BP 125/75; PULSE 65; RESP 18; TEMP 35.7; O2SAT 95
[2021-12-27] MEDS: MUPIROCIN 2% OINT 22 GM TUBE 1 APPLIC TOPICAL ×2 (14:35→21:24)
--- NOTE | 2021-12-27 15:30 | PCPTNOTE ---
Attempted PT evaluation, patient refused despite education/encouragement. RN aware, will follow
[2021-12-27 16:42] VITALS: PULSE 65
[2021-12-27] MEDS: AMIODARONE HCL 200 MG TABLET PO (16:42)
[2021-12-27] MEDS: amLODIPine BESYLATE 5 MG TABLET PO (21:24)
[2021-12-27 22:00] VITALS: BP 112/73; PULSE 91; RESP 16; TEMP 36.2; O2SAT 96
--- NOTE | 2021-12-27 22:10 | PCRCNOTE ---
pt refused apnea link tonight. Per pt he needs a night to think about the test. RN informed
[2021-12-28] VITALS (8 sets, daily range): BP systolic 106–133; BP diastolic 81–90; PULSE 79–110; RESP 16–26; TEMP 36.1–36.2; O2SAT 96–99
[2021-12-28] MEDS: HYDROmorphone HCL INJ (*CRX) 1 MG/ML SYR IV PUSH ×2 (01:13→09:09)
[2021-12-28] MEDS: GABAPENTIN 100 MG CAPSULE PO ×3 (05:42→20:48)
[2021-12-28] MEDS: LEVOTHYROXINE SODIUM 50 MCG TABLET PO (05:42)
[2021-12-28 06:25] LABS: Hematocrit 41.8 % (42.0-52.0); Hemoglobin 12.6 g/dL (14.0-18.0); Mean Corpuscular HGB Conc 30.1 g/dl (32-36); Mean Corpuscular Hemoglobin 29.5 pg (26-34); Mean Corpuscular Volume 97.9 fl (80-100); Mean Platelet Volume 10.7 fl (7.4-10.4); Platelet Count Result 186 k/mm3 (150-375); Red Blood Count 4.27 M/mm3 (4.6-6.20); Red Cell Distribution Width 12.9 % (11.5-14.5); White Blood Count 20.1 K/mm3 (4.5-10.0)
[2021-12-28] MEDS: ALBUTEROL SULFATE NEB 2.5 MG/3 ML INH INHALATION ×2 (06:27→19:15)
[2021-12-28 06:32] LABS: Alanine Aminotransferase 21 U/L (6-50); Albumin Level 2.7 g/dL (3.5-5.1); Alkaline Phosphatase 118 U/L (38-126); Anion Gap 11 mmol/L (8-16); Aspartate Amino Transferase 38 U/L (17-59); Bilirubin,Total 0.7 mg/dL (0.2-1.3); Blood Urea Nitrogen 53 mg/dL (9-20); Calcium 7.5 mg/dL (8.4-10.2); Carbon Dioxide 19 mmol/L (22-30); Chloride 91 mmol/L (98-107); Estimated CRCL calculation 59 ml/min; Estimated Glomerular Filt Rate 43; Glucose 249 mg/dL (65-110); Potassium 4.5 mmol/L (3.4-5.0); Sodium 121 mmol/L (137-145)
--- NOTE | 2021-12-28 07:04 | PM.IMPN ---
Progress Note: A&P Assessment and Plan (1) Sepsis: Code(s): A41.9 - Sepsis, unspecified organism Status: Acute Assessment and Plan: Monitor I&Os, vital signs, neuro status and patient is a fall risk Monitor serum electrolytes, CBC, WBC, temperature curve and follow cultures Provide IV fluid resuscitation for hemodynamic stability IV Vancomycin, consult pharmacy to dose, send Vancomycin trough levels before 4th dose, Zosyn 3.375mg Q 6 hours. Is a Maile was added to the patient's medication regimen. His arm does not appear to be significantly improved, his WBC is trending up. Continue monitor clinical status. Pulses to the right upper extremity WNL, sensation still intact. Capillary refill appropriate. P.r.n. Tylenol, Zofran, and melatonin Pulling a warm like appearance out of his arm approximately 1 week ago He denies any known consuming water that was consumed. Consider this in the differential if patient does not respond to the antibiotics. 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 Status: Acute Assessment and Plan: unchanged (5) Essential hypertension: Code(s): I10 - Essential (primary) hypertension Status: Acute Assessment and Plan: continue home meds (6) Type 2 diabetes mellitus: Qualifiers: Diabetes mellitus complication detail: with autonomic neuropathy Diabetes mellitus complication status: with neurologic complications Diabetes mellitus chcf insulin use: without filler leaf cutter long use Qualified Code(s): E11.43 - Type 2 diabetes mellitus with diabetic autonomic (poly)neuropathy Code(s): E11.9 - Type 2 diabetes mellitus without complications Status: Acute Assessment and Plan: insulin sliding scale as needed 1800 calorie carb consistent diet (7) URSULA (acute kidney injury): Code(s): N17.9 - Acute kidney failure, unspecified Status: Acute Assessment and Plan: likely secondary to sepsis receiving IV fluids repeat BMP in a.m. (8) Urinary retention: Code(s): R33.9 - Retention of urine, unspecified Status: Acute Assessment and Plan: patient may be experiencing urinary retention. Patient reports that he is unable to completely empty his bladder. Will obtain a urine culture, bladder scan and insert Solis catheter. Subjective Date/time seen: 12/28/21 07:04 Patient's arm appears significantly unchanged. Continues to weep. Add azithromycin to the patient's unresponsiveness to therapy. Patient does not appear to be a good historian. Stories changed multiple times. Today the patient was very concerned about his penis and the size of his penis to not only myself but also physical therapy and nursing staff. Patient has requested Solis catheter be placed because he is unable to appropriately use the urinal because of his body habitus. patient is moved minimally and mobile and in pain with his right upper extremity therefore a Solis catheter order will be placed. Patient was also unwilling to work with physical therapy and occupational therapy. After several days of attempting the patient to work with them and his persistent refusal will discontinue physical therapy and occupational for now until the patient pain becomes compliant. Review of Systems Review of Systems: All systems reviewed & are unremarkable except as noted in HPI and below Exam Narrative: General: No acute distress. Mental Status: Awake, alert and oriented to person, place, and time with clear speech. Skin: Skin in warm, dry and intact without ra
[2021-12-28] MEDS: MUPIROCIN 2% OINT 22 GM TUBE 1 APPLIC TOPICAL ×2 (08:17→20:47)
[2021-12-28] MEDS: ENOXAPARIN 40 MG/0.4 ML SYRINGE SUB-Q (08:17)
[2021-12-28] MEDS: MICONAZOLE NITRATE 2% CREAM 30 GM TUBE 1 APPLIC TOPICAL (08:17)
[2021-12-28] MEDS: MELOXICAM 7.5 MG TABLET 15 MG PO (08:18)
[2021-12-28] MEDS: PANTOPRAZOLE SOD SESQUIHYDRATE 20 MG TAB PO (08:18)
--- NOTE | 2021-12-28 09:55 | PCOTNOTE ---
Attempted to see pt. for occupational therapy evaluation. Pt. refuses to work with therapy at this time. Pt. has refused PT attempts on 12/26, 12/27, and 12/28. Pt. educated on benefits of participation in therapy services, pt. stated disinterest at this time. Hospitalist updated and agreeable to canceling of therapy orders until pt. willing to participate. Hospitalist agreeable to follow up with patient.
--- NOTE | 2021-12-28 10:05 | PCPTNOTE ---
Attempted to see pt. for physical therapy evaluation. Pt. refuses to work with therapy at this time. Pt. has refused PT attempts on 12/26, 12/27, and 12/28. Pt. educated on benefits of participation in therapy services, pt. stated disinterest at this time. Hospitalist updated and agreeable to canceling of therapy orders until pt. willing to participate. Hospitalist agreeable to follow up with patient.
[2021-12-28] MEDS: HYDROcodone/acetaminophen (*CRX) 10-325 MG TABLET 1 TAB PO ×2 (10:42→23:20)
--- NOTE | 2021-12-28 10:52 | PC.NURSE ---
bladder scanned pt, no retention.
[2021-12-28] MEDS: AMIODARONE HCL 200 MG TABLET PO (16:21)
[2021-12-28] MEDS: SODIUM CHLORIDE 0.9% IV 1,000 ML 100 ML IV CONT ×2 (18:59→20:46)
[2021-12-28] MEDS: IPRATROPIUM BR 0.02% INH SOLN 0.5 MG/2.5 ML VIAL INHALATION (19:15)
[2021-12-28] MEDS: amLODIPine BESYLATE 5 MG TABLET PO (20:47)
[2021-12-28 22:13] LABS: Vancomycin Trough 9.9 ug/mL (10.0-20.0)
--- NOTE | 2021-12-28 22:17 | PCRCNOTE ---
pt refused apnea link. RN informed.
[2021-12-29] VITALS (16 sets, daily range): BP systolic 117–135; BP diastolic 65–82; PULSE 73–88; RESP 16–24; TEMP 36.1–37.2; O2SAT 90–100
--- NOTE | 2021-12-29 01:37 | PC.NURSE ---
Pt refused Tylenol for shoulder pain that was suggested by doctor.
[2021-12-29] MEDS: HYDROmorphone HCL INJ (*CRX) 1 MG/ML SYR IV PUSH ×2 (03:24→20:35)
[2021-12-29] MEDS: ALBUTEROL SULFATE NEB 2.5 MG/3 ML INH INHALATION ×4 (05:18→22:31)
[2021-12-29] MEDS: LEVOTHYROXINE SODIUM 50 MCG TABLET PO (05:55)
[2021-12-29] MEDS: MAGNES & ALUM HYD/SIMETH/DIPHENHYD/LIDOCAINE 119 ML MOUTHWASH BY MOUTH ×5 (05:55→20:36)
[2021-12-29] MEDS: GABAPENTIN 100 MG CAPSULE PO ×3 (05:55→20:29)
[2021-12-29] MEDS: PANTOPRAZOLE SOD SESQUIHYDRATE 20 MG TAB PO (08:08)
[2021-12-29] MEDS: ENOXAPARIN 40 MG/0.4 ML SYRINGE SUB-Q (08:08)
[2021-12-29] MEDS: MELOXICAM 7.5 MG TABLET 15 MG PO (08:08)
[2021-12-29] MEDS: MICONAZOLE NITRATE 2% CREAM 30 GM TUBE 1 APPLIC TOPICAL (08:09)
[2021-12-29] MEDS: MUPIROCIN 2% OINT 22 GM TUBE 1 APPLIC TOPICAL ×2 (08:09→20:36)
--- NOTE | 2021-12-29 08:13 | PM.IMPN ---
Progress Note: A&P Assessment and Plan (1) Sepsis: Code(s): A41.9 - Sepsis, unspecified organism Status: Acute Assessment and Plan: Monitor I&Os, vital signs, neuro status and patient is a fall risk Monitor serum electrolytes, CBC, WBC, temperature curve and follow cultures Provide IV fluid resuscitation for hemodynamic stability IV Vancomycin, consult pharmacy to dose, send Vancomycin trough levels before 4th dose, Zosyn 3.375mg Q 6 hours. Azithromax was added to the patient's medication regimen. His arm does appear to be improved, his WBC pending. Continue monitor clinical status. Pulses to the right upper extremity WNL, sensation still intact. Capillary refill appropriate. P.r.n. 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 Status: Acute Assessment and Plan: unchanged (5) Essential hypertension: Code(s): I10 - Essential (primary) hypertension Status: Acute Assessment and Plan: continue home meds (6) Type 2 diabetes mellitus: Qualifiers: Diabetes mellitus complication detail: with autonomic neuropathy Diabetes mellitus complication status: with neurologic complications Diabetes mellitus prison insulin use: without prison use Qualified Code(s): E11.43 - Type 2 diabetes mellitus with diabetic autonomic (poly)neuropathy Code(s): E11.9 - Type 2 diabetes mellitus without complications Status: Acute Assessment and Plan: insulin sliding scale as needed 1800 calorie carb consistent diet (7) URSULA (acute kidney injury): Code(s): N17.9 - Acute kidney failure, unspecified Status: Acute Assessment and Plan: likely secondary to sepsis receiving IV fluids repeat BMP in a.m. (8) Urinary retention: Code(s): R33.9 - Retention of urine, unspecified Status: Acute Assessment and Plan: patient may be experiencing urinary retention. Patient reports that he is unable to completely empty his bladder. Will obtain a urine culture, bladder scan and insert Solis catheter. Subjective Date/time seen: 12/29/21 08:13 Patient is alert and oriented. He appears clinically better after azithromycin was added to his medication treatment. Patient's labs pending. Lost IV access. Patient will have a PICC line placed today. Cellulitis to the right upper extremity appears better and there was regression from the line. Solis catheter was not inserted. continue monitor patient and receive IV antibiotics. Monitor vital signs. No acute events reported by RN during the night. Review of Systems Review of Systems: All systems reviewed & are unremarkable except as noted in HPI and below Exam Narrative: General: No acute distress. Mental Status: Awake, alert and oriented to person, place, and time with clear speech. Skin: Skin in warm, dry and intact without rashes or lesions On left upper extremity, right and left lower extremity.. Right upper extremity swollen, erythema, warmth and 2 to 3+ pitting edema from his hand up to his right shoulder. When the lateral aspect of the right arm Head: Normocephalic and atraumatic. Eyes: Conjunctivae are clear without exudates or hemorrhage. Sclera is non-icteric. EOM are intact, PERRLA. Ears: The external ear and canal are non-tender and without swelling or discharge. Nose: Nasal mucosa is pink and moist. Septum midline. Nares patent bilaterally. Throat: Oral mucosa pink and moist with good dentition. Tongue midline. Neck: The neck supple without adenopathy. Trachea mid
[2021-12-29] MEDS: HYDROcodone/acetaminophen (*CRX) 10-325 MG TABLET 1 TAB PO ×2 (10:17→18:47)
--- NOTE | 2021-12-29 10:52 | PC.NURSE ---
Andres CALLAWAY [place] called for PICC line placement, stated will be here in 30 minutes.
--- NOTE | 2021-12-29 11:36 | PC.NURSE ---
stat cxr for picc line placement ordered.
[2021-12-29 13:35] LABS: Hematocrit 34.2 % (42.0-52.0); Hemoglobin 11.5 g/dL (14.0-18.0); Mean Corpuscular HGB Conc 33.6 g/dl (32-36); Mean Corpuscular Hemoglobin 30.3 pg (26-34); Mean Corpuscular Volume 90.2 fl (80-100); Mean Platelet Volume 10.2 fl (7.4-10.4); Platelet Count Result 221 k/mm3 (150-375); Red Blood Count 3.79 M/mm3 (4.6-6.20); Red Cell Distribution Width 12.7 % (11.5-14.5); White Blood Count 18.2 K/mm3 (4.5-10.0)
[2021-12-29 13:48] LABS: Alanine Aminotransferase 33 U/L (6-50); Albumin Level 2.8 g/dL (3.5-5.1); Alkaline Phosphatase 121 U/L (38-126); Anion Gap 7 mmol/L (8-16); Aspartate Amino Transferase 37 U/L (17-59); Bilirubin,Total 0.6 mg/dL (0.2-1.3); Blood Urea Nitrogen 45 mg/dL (9-20); Calcium 7.9 mg/dL (8.4-10.2); Carbon Dioxide 25 mmol/L (22-30); Chloride 97 mmol/L (98-107); Estimated CRCL calculation 72 ml/min; Estimated Glomerular Filt Rate 55; Glucose 405 mg/dL (65-110); Potassium 4.1 mmol/L (3.4-5.0); Sodium 129 mmol/L (137-145)
[2021-12-29] MEDS: AMIODARONE HCL 200 MG TABLET PO (16:15)
[2021-12-29] MEDS: SODIUM CHLORIDE 0.9% IV 1,000 ML 100 ML IV CONT ×2 (16:49→23:18)
[2021-12-29] MEDS: amLODIPine BESYLATE 5 MG TABLET PO (20:29)
[2021-12-29] MEDS: CENTRAL LINE FLUSH 10 ML IV PUSH (23:18)
[2021-12-30] VITALS (10 sets, daily range): BP systolic 116–139; BP diastolic 78–92; PULSE 75–113; RESP 16–22; TEMP 35.9–37; O2SAT 95–100
[2021-12-30] MEDS: ALBUTEROL SULFATE NEB 2.5 MG/3 ML INH INHALATION ×3 (01:12→14:27)
[2021-12-30] MEDS: HYDROmorphone HCL INJ (*CRX) 1 MG/ML SYR IV PUSH ×3 (02:53→21:28)
[2021-12-30] MEDS: MAGNES & ALUM HYD/SIMETH/DIPHENHYD/LIDOCAINE 119 ML MOUTHWASH BY MOUTH ×5 (04:55→20:13)
[2021-12-30] MEDS: CENTRAL LINE FLUSH 10 ML IV PUSH ×3 (05:57→23:14)
[2021-12-30] MEDS: GABAPENTIN 100 MG CAPSULE PO ×3 (05:57→23:14)
[2021-12-30 06:28] LABS: Hematocrit 34.2 % (42.0-52.0); Hemoglobin 11.1 g/dL (14.0-18.0); Mean Corpuscular HGB Conc 32.5 g/dl (32-36); Mean Corpuscular Hemoglobin 30.1 pg (26-34); Mean Corpuscular Volume 92.7 fl (80-100); Mean Platelet Volume 10.4 fl (7.4-10.4); Platelet Count Result 210 k/mm3 (150-375); Red Blood Count 3.69 M/mm3 (4.6-6.20); Red Cell Distribution Width 12.8 % (11.5-14.5); White Blood Count 17.2 K/mm3 (4.5-10.0)
[2021-12-30 06:44] LABS: Alanine Aminotransferase 36 U/L (6-50); Albumin Level 2.7 g/dL (3.5-5.1); Alkaline Phosphatase 107 U/L (38-126); Anion Gap 5 mmol/L (8-16); Aspartate Amino Transferase 38 U/L (17-59); Bilirubin,Total 0.6 mg/dL (0.2-1.3); Blood Urea Nitrogen 36 mg/dL (9-20); Calcium 7.3 mg/dL (8.4-10.2); Carbon Dioxide 28 mmol/L (22-30); Chloride 99 mmol/L (98-107); Estimated CRCL calculation 84 ml/min; Estimated Glomerular Filt Rate > 60; Glucose 291 mg/dL (65-110); Potassium 4.8 mmol/L (3.4-5.0); Sodium 132 mmol/L (137-145)
[2021-12-30] MEDS: LEVOTHYROXINE SODIUM 50 MCG TABLET PO (07:00)
--- NOTE | 2021-12-30 07:56 | PM.IMPN ---
Progress Note: A&P Assessment and Plan (1) Sepsis: Code(s): A41.9 - Sepsis, unspecified organism Status: Acute Assessment and Plan: Monitor I&Os, vital signs, neuro status and patient is a fall risk Monitor serum electrolytes, CBC, WBC, temperature curve and follow cultures Provide IV fluid resuscitation for hemodynamic stability IV Vancomycin, consult pharmacy to dose, send Vancomycin trough levels before 4th dose, Zosyn 3.375mg Q 6 hours. consitnue Azithromax. His arm does appears to be improving. Continue monitor clinical status. Pulses to the right upper extremity WNL, sensation still intact. Capillary refill appropriate. P.r.n. 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 Status: Acute Assessment and Plan: unchanged (5) Essential hypertension: Code(s): I10 - Essential (primary) hypertension Status: Acute Assessment and Plan: continue home meds (6) Type 2 diabetes mellitus: Qualifiers: Diabetes mellitus complication detail: with autonomic neuropathy Diabetes mellitus complication status: with neurologic complications Diabetes mellitus deputy assessor insulin use: without deputy assessor use Qualified Code(s): E11.43 - Type 2 diabetes mellitus with diabetic autonomic (poly)neuropathy Code(s): E11.9 - Type 2 diabetes mellitus without complications Status: Acute Assessment and Plan: insulin sliding scale as needed 1800 calorie carb consistent diet (7) URSULA (acute kidney injury): Code(s): N17.9 - Acute kidney failure, unspecified Status: Acute Assessment and Plan: likely secondary to sepsis receiving IV fluids repeat BMP in a.m. (8) Urinary retention: Code(s): R33.9 - Retention of urine, unspecified Status: Acute Assessment and Plan: patient may be experiencing urinary retention. Patient reports that he is unable to completely empty his bladder. Will obtain a urine culture, bladder scan and insert Solis catheter. (9) Hyponatremia: Code(s): E87.1 - Hypo-osmolality and hyponatremia Status: Acute Assessment and Plan: continue with fluid restriction, provide gentle IV fluid resusitation limit free water intake Improved Subjective Date/time seen: 12/30/21 07:56 patient is doing significantly better today. He is able to up and ambulate independently with assistance. Patient will have physical therapy and occupational therapy work with him prior to discharge. Patient's arms appears significantly improved. Patient's WBC downtrending. Sodium 132 this morning. Improved. he denies any acute complaints. Review of Systems Review of Systems: All systems reviewed & are unremarkable except as noted in HPI and below Exam Narrative: General: No acute distress. Mental Status: Awake, alert and oriented to person, place, and time with clear speech. Skin: Skin in warm, dry and intact without rashes or lesions On left upper extremity, right and left lower extremity. Right upper extremity swollen, erythema, warmth and 2 + pitting edema from his hand up to his right shoulder. When the lateral aspect of the right arm. Head: Normocephalic and atraumatic. Eyes: Conjunctivae are clear without exudates or hemorrhage. Sclera is non-icteric. EOM are intact, PERRLA. Ears: The external ear and canal are non-tender and without swelling or discharge. Nose: Nasal mucosa is pink and moist. Septum midline. Nares patent bilaterally. Throat: Oral mucosa pink and moist with good dentition. Tongue
--- NOTE | 2021-12-30 08:43 | PCRCNOTE ---
Pt is refusing to take 0800 tx, pt was informed of the need for tx, but the pt still refused, nurse notified of refusal.
[2021-12-30] MEDS: ENOXAPARIN 40 MG/0.4 ML SYRINGE SUB-Q (09:23)
[2021-12-30] MEDS: PANTOPRAZOLE SOD SESQUIHYDRATE 20 MG TAB PO (09:23)
[2021-12-30] MEDS: MELOXICAM 7.5 MG TABLET 15 MG PO (09:23)
[2021-12-30] MEDS: MICONAZOLE NITRATE 2% CREAM 30 GM TUBE 1 APPLIC TOPICAL (09:24)
[2021-12-30] MEDS: MUPIROCIN 2% OINT 22 GM TUBE 1 APPLIC TOPICAL ×2 (09:24→20:11)
[2021-12-30] MEDS: BENZOCAINE/MENTHOL (*BKC) 18 EA LOZENGE 1 LOZENGE PO (09:24)
[2021-12-30] MEDS: SODIUM CHLORIDE 0.9% IV 1,000 ML 100 ML IV CONT (12:40)
--- NOTE | 2021-12-30 14:06 | PCPTNOTE ---
Attempted PT evaluation, Pt is ADAMANT he does NOT want therapy. Per patient, he was told by ASSISTED I was krystin I didn't do the evaluation. Hospitalist aware and transplant coordinator aware. Orders will be DC.
[2021-12-30] MEDS: AMIODARONE HCL 200 MG TABLET PO (17:49)
[2021-12-30] MEDS: HYDROcodone/acetaminophen (*CRX) 10-325 MG TABLET 1 TAB PO (17:53)
[2021-12-30] MEDS: amLODIPine BESYLATE 5 MG TABLET PO (20:12)
[2021-12-30 21:08] LABS: Glucose Point of Care 365 mg/dl (65-105)
[2021-12-30] MEDS: INSULIN ASPART (*BKC) 100 UNITS/ML 6 UNITS SUB-Q (23:55)
[2021-12-31] VITALS (7 sets, daily range): BP systolic 126–160; BP diastolic 73–103; PULSE 76–87; RESP 16–20; TEMP 35.8–36.1; O2SAT 92–100
[2021-12-31] MEDS: HYDROmorphone HCL INJ (*CRX) 1 MG/ML SYR IV PUSH ×4 (00:25→21:26)
[2021-12-31] MEDS: MAGNES & ALUM HYD/SIMETH/DIPHENHYD/LIDOCAINE 119 ML MOUTHWASH BY MOUTH ×6 (00:27→21:12)
[2021-12-31] MEDS: BENZOCAINE/MENTHOL (*BKC) 18 EA LOZENGE 1 LOZENGE PO (04:54)
[2021-12-31 05:08] LABS: Hematocrit 38.8 % (42.0-52.0); Hemoglobin 12.2 g/dL (14.0-18.0); Mean Corpuscular HGB Conc 31.4 g/dl (32-36); Mean Corpuscular Hemoglobin 29.7 pg (26-34); Mean Corpuscular Volume 94.4 fl (80-100); Platelet Count Result 273 k/mm3 (150-375); Red Blood Count 4.11 M/mm3 (4.6-6.20); Red Cell Distribution Width 12.9 % (11.5-14.5); White Blood Count 15.6 K/mm3 (4.5-10.0)
[2021-12-31 05:24] LABS: Alanine Aminotransferase 40 U/L (6-50); Albumin Level 2.9 g/dL (3.5-5.1); Alkaline Phosphatase 116 U/L (38-126); Anion Gap 6 mmol/L (8-16); Aspartate Amino Transferase 43 U/L (17-59); Bilirubin,Total 0.5 mg/dL (0.2-1.3); Blood Urea Nitrogen 25 mg/dL (9-20); Calcium 8.1 mg/dL (8.4-10.2); Carbon Dioxide 31 mmol/L (22-30); Chloride 99 mmol/L (98-107); Estimated CRCL calculation 92 ml/min; Estimated Glomerular Filt Rate > 60; Glucose 195 mg/dL (65-110); Potassium 4.2 mmol/L (3.4-5.0); Sodium 136 mmol/L (137-145)
--- NOTE | 2021-12-31 05:31 | PCRCNOTE ---
Patient refused 1999 and 199 breathing treatments, stating he is feeling fine. Therapist waited till 050 to write off 199 tx in case patient called for it.
[2021-12-31 05:52] LABS: Vancomycin Trough 14.5 ug/mL (10.0-20.0)
[2021-12-31] MEDS: GABAPENTIN 100 MG CAPSULE PO ×3 (06:10→21:13)
[2021-12-31] MEDS: LEVOTHYROXINE SODIUM 50 MCG TABLET PO (06:10)
[2021-12-31 07:54] LABS: Glucose Point of Care 280 mg/dl (65-105)
[2021-12-31] MEDS: MICONAZOLE NITRATE 2% CREAM 30 GM TUBE 1 APPLIC TOPICAL (08:33)
[2021-12-31] MEDS: PANTOPRAZOLE SOD SESQUIHYDRATE 20 MG TAB PO (08:33)
[2021-12-31] MEDS: MUPIROCIN 2% OINT 22 GM TUBE 1 APPLIC TOPICAL ×2 (08:33→21:12)
[2021-12-31] MEDS: MELOXICAM 7.5 MG TABLET 15 MG PO (08:33)
[2021-12-31] MEDS: INSULIN ASPART (*BKC) 100 UNITS/ML SUB-Q ×3 (08:33→17:33)
[2021-12-31] MEDS: ALBUTEROL SULFATE NEB 2.5 MG/3 ML INH INHALATION (09:14)
[2021-12-31 11:49] LABS: Glucose Point of Care 336 mg/dl (65-105)
--- NOTE | 2021-12-31 13:26 | PM.IMPN ---
Progress Note: A&P Assessment and Plan (1) Sepsis: Code(s): A41.9 - Sepsis, unspecified organism Status: Acute Assessment and Plan: Monitor I&Os, vital signs, neuro status and patient is a fall risk Monitor serum electrolytes, CBC, WBC, temperature curve and follow cultures Resuscitated with IV fluids admission IV Vancomycin, consult pharmacy to dose, send Vancomycin trough levels before 4th dose, Zosyn 3.375mg Q 6 hours. consitnue Azithromax. His arm does appears to be improving. Continue monitor clinical status. Pulses to the right upper extremity WNL, sensation still intact. Capillary refill appropriate. P.r.n. Tylenol, Zofran, and melatonin (2) Cellulitis of right upper extremity: Code(s): L03.113 - Cellulitis of right upper limb Status: Acute Assessment and Plan: Continue IV antibiotics cultures in progress supportive care Will get CT upper extremity to rule out any underlying drainable collections Leukocytosis improved on current regimen. Will continue same for now Will check ASO titer (3) Atrial fib/flutter, transient: Status: Acute Assessment and Plan: continue amiodarone Not on anticoagulation. Does not follow With any invas tech. 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 Status: Acute Assessment and Plan: unchanged (5) Essential hypertension: Code(s): I10 - Essential (primary) hypertension Status: Acute Assessment and Plan: continue home meds (6) Type 2 diabetes mellitus: Qualifiers: Diabetes mellitus senior living insulin use: without terminal manager use Diabetes mellitus complication status: with neurologic complications Diabetes mellitus complication detail: with autonomic neuropathy Qualified Code(s): E11.43 - Type 2 diabetes mellitus with diabetic autonomic (poly)neuropathy Code(s): E11.9 - Type 2 diabetes mellitus without complications Status: Acute Assessment and Plan: insulin sliding scale as needed 1800 calorie carb consistent diet (7) URSULA (acute kidney injury): Code(s): N17.9 - Acute kidney failure, unspecified Status: Acute Assessment and Plan: likely secondary to sepsis receiving IV fluids repeat BMP in a.m. (8) Urinary retention: Code(s): R33.9 - Retention of urine, unspecified Status: Acute Assessment and Plan: patient may be experiencing urinary retention. bladder scan reported to be unremarkable however in her low PT resolved. He does report nocturia and frequency of urination Will check urinalysis and urine culture We will add Flomax as suspect he has underlying prostatic hypertrophy. (9) Hyponatremia: Code(s): E87.1 - Hypo-osmolality and hyponatremia Status: Acute Assessment and Plan: continue with fluid restriction, provide gentle IV fluid resusitation limit free water intake Improved Plan Morbid obesity Suspect underlying sleep apnea apnea will do apnea link test Conversational dyspnea no formal lung diagnosis reported. Will check echocardiogram does have history of atrial fibrillation but remains in sinus rhythm he is on chronic amiodarone therapy so lung toxicity related to chronic amiodarone therapy is possibility as well may need high-resolution CT scan to further evaluate his dyspnea. Will check his BNP as well as underlying congestive heart failure is suspected as well. Will give a dose of Lasix today for his lower extremity edema and overall hypervolemia and follow clinical course. He is also quite positive since admission. Cumulative 14 L positive. Weight is up 6 kilos but has not been checked since past few days. Will put on weight every day. . # No lower extremity edema attributes to his amlodipine. With conversational dyspnea noted no prior diagnosis of COPD or any lung disease along with a nonsmoker/ never smoker
[2021-12-31 16:14] LABS: Glucose Point of Care 369 mg/dl (65-105)
[2021-12-31] MEDS: FUROSEMIDE INJ 40 MG/4 ML VIAL IV PUSH (17:32)
[2021-12-31] MEDS: AMIODARONE HCL 200 MG TABLET PO (17:32)
[2021-12-31 19:30] LABS: NT Pro B Type Natriuretic Pept 1100 pg/mL (5-100)
[2021-12-31] MEDS: amLODIPine BESYLATE 5 MG TABLET PO (21:12)
[2021-12-31 21:44] LABS: Glucose Point of Care 206 mg/dl (65-105)
[2021-12-31] MEDS: INSULIN GLARGINE (*BKC) 100 UNITS/ML 15 UNITS SUB-Q (22:41)
[2022-01-01] MEDS: HYDROcodone/acetaminophen (*CRX) 10-325 MG TABLET 1 TAB PO ×3 (02:48→18:11)
--- NOTE | 2022-01-01 04:03 | PCRCNOTE ---
patient refused 2000 neb tx, 0200 neb tx, and the apnea study; RN is aware
[2022-01-01] MEDS: GABAPENTIN 100 MG CAPSULE PO ×3 (05:19→21:03)
[2022-01-01] MEDS: LEVOTHYROXINE SODIUM 50 MCG TABLET PO (05:21)
[2022-01-01 05:43] VITALS: BP 149/79; PULSE 67; RESP 18; TEMP 36.6; O2SAT 95
--- NOTE | 2022-01-01 07:02 | PCCARD ---
Patient refused echocarddiogram exam. Nurse Alicea was notified.
[2022-01-01 07:41] LABS: Glucose Point of Care 203 mg/dl (65-105)
[2022-01-01 08:21] VITALS: O2SAT 97
[2022-01-01] MEDS: INSULIN ASPART (*BKC) 100 UNITS/ML 6 UNITS SUB-Q ×3 (08:40→18:10)
[2022-01-01] MEDS: PANTOPRAZOLE SOD SESQUIHYDRATE 20 MG TAB PO (08:41)
[2022-01-01] MEDS: INSULIN ASPART (*BKC) 100 UNITS/ML SUB-Q ×3 (08:41→18:10)
[2022-01-01] MEDS: TAMSULOSIN HCL 0.4 MG CAPSULE PO (08:41)
[2022-01-01] MEDS: MAGNES & ALUM HYD/SIMETH/DIPHENHYD/LIDOCAINE 119 ML MOUTHWASH BY MOUTH ×4 (08:41→21:04)
[2022-01-01] MEDS: MELOXICAM 7.5 MG TABLET 15 MG PO (08:41)
[2022-01-01] MEDS: MICONAZOLE NITRATE 2% CREAM 30 GM TUBE 1 APPLIC TOPICAL (08:43)
[2022-01-01] MEDS: MUPIROCIN 2% OINT 22 GM TUBE 1 APPLIC TOPICAL ×2 (08:43→21:05)
--- NOTE | 2022-01-01 09:03 | PC.NURSE ---
will give patient his antibiotic when he regains IV access.
[2022-01-01 10:00] LABS: Hematocrit 37.8 % (42.0-52.0); Hemoglobin 11.9 g/dL (14.0-18.0); Mean Corpuscular HGB Conc 31.5 g/dl (32-36); Mean Corpuscular Hemoglobin 29.7 pg (26-34); Mean Corpuscular Volume 94.3 fl (80-100); Mean Platelet Volume 10.1 fl (7.4-10.4); Platelet Count Result 272 k/mm3 (150-375); Red Blood Count 4.01 M/mm3 (4.6-6.20); Red Cell Distribution Width 12.8 % (11.5-14.5); White Blood Count 14.6 K/mm3 (4.5-10.0)
[2022-01-01 10:18] LABS: Alanine Aminotransferase 37 U/L (6-50); Albumin Level 2.8 g/dL (3.5-5.1); Alkaline Phosphatase 106 U/L (38-126); Anion Gap 5 mmol/L (8-16); Aspartate Amino Transferase 34 U/L (17-59); Bilirubin,Total 0.4 mg/dL (0.2-1.3); Blood Urea Nitrogen 16 mg/dL (9-20); Calcium 7.5 mg/dL (8.4-10.2); Carbon Dioxide 33 mmol/L (22-30); Chloride 98 mmol/L (98-107); Estimated CRCL calculation 101 ml/min; Estimated Glomerular Filt Rate > 60; Glucose 322 mg/dL (65-110); Magnesium 2.1 mg/dL (1.6-2.3); Potassium 3.6 mmol/L (3.4-5.0); Sodium 136 mmol/L (137-145)
[2022-01-01 11:35] LABS: Glucose Point of Care 279 mg/dl (65-105)
[2022-01-01 13:52] VITALS: BP 135/75; PULSE 72; RESP 18; TEMP 36; O2SAT 100
[2022-01-01] MEDS: LIDOCAINE HCL 1% LOCAL INJ 2 ML AMPUL 5 ML INFILTRATE (14:15)
--- NOTE | 2022-01-01 14:40 | P.PNIM_ITS ---
Progress Note: A&P Assessment and Plan (1) Sepsis: Code(s): A41.9 - Sepsis, unspecified organism Status: Acute Assessment and Plan: Monitor I&Os, vital signs, neuro status and patient is a fall risk Monitor serum electrolytes, CBC, WBC, temperature curve and follow cultures Resuscitated with IV fluids admission IV Vancomycin, consult pharmacy to dose, send Vancomycin trough levels before 4th dose, Zosyn 3.375mg Q 6 hours. consitnue Azithromax. His arm does appears to be improving. Continue monitor clinical status. Pulses to the right upper extremity WNL, sensation still intact. Capillary refill appropriate. P.r.n. Tylenol, Zofran, and melatonin (2) Cellulitis of right upper extremity: Code(s): L03.113 - Cellulitis of right upper limb Status: Acute Assessment and Plan: Continue IV antibiotics cultures in progress supportive care Will get CT upper extremity to rule out any underlying drainable collections Leukocytosis improved on current regimen. Will continue same for now Will check ASO titer (3) Atrial fib/flutter, transient: Status: Acute Assessment and Plan: continue amiodarone Not on anticoagulation. Does not follow With any on site coordinator. 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 Status: Acute Assessment and Plan: unchanged (5) Essential hypertension: Code(s): I10 - Essential (primary) hypertension Status: Acute Assessment and Plan: continue home meds (6) Type 2 diabetes mellitus: Qualifiers: Diabetes mellitus alf insulin use: without long distance operator use Diabetes mellitus complication status: with neurologic complications Diabetes mellitus complication detail: with autonomic neuropathy Qualified Code(s): E11.43 - Type 2 diabetes mellitus with diabetic autonomic (poly)neuropathy Code(s): E11.9 - Type 2 diabetes mellitus without complications Status: Acute Assessment and Plan: insulin sliding scale as needed 1800 calorie carb consistent diet (7) URSULA (acute kidney injury): Code(s): N17.9 - Acute kidney failure, unspecified Status: Acute Assessment and Plan: likely secondary to sepsis receiving IV fluids repeat BMP in a.m. (8) Urinary retention: Code(s): R33.9 - Retention of urine, unspecified Status: Acute Assessment and Plan: patient may be experiencing urinary retention. bladder scan reported to be unremarkable however in her low PT resolved. He does report nocturia and frequency of urination Will check urinalysis and urine culture We will add Flomax as suspect he has underlying prostatic hypertrophy. (9) Hyponatremia: Code(s): E87.1 - Hypo-osmolality and hyponatremia Status: Acute Assessment and Plan: continue with fluid restriction, provide gentle IV fluid resusitation limit free water intake Improved Plan Morbid obesity Suspect underlying sleep apnea apnea will do apnea link test Conversational dyspnea no formal lung diagnosis reported. Will check echocardiogram does have history of atrial fibrillation but remains in sinus rhythm he is on chronic amiodarone therapy so lung toxicity related to chronic amiodarone therapy is possibility as well may need high-resolution CT scan to further evaluate his dyspnea. Will check his BNP as well as underlying congestive heart failure is suspected as well. Will give a dose of Lasix today for his lower extremity edema and overall hypervolemia and follow cl
[2022-01-01 16:19] LABS: Glucose Point of Care 237 mg/dl (65-105)
[2022-01-01 18:09] VITALS: PULSE 70
[2022-01-01] MEDS: AMIODARONE HCL 200 MG TABLET PO (18:09)
[2022-01-01] MEDS: CENTRAL LINE FLUSH 10 ML IV PUSH ×2 (18:11→21:05)
--- NOTE | 2022-01-01 20:48 | PCRCNOTE ---
Pt is refusing 2000 UPD treatment. Pt states that the albuterol makes him feel 'cloudy' and that he cannot think straight after treatment. He then stated 'I will try it one more time I guess.' At this time, RT does not feel comfortable giving him the treatment due to his claim of altered mental status after treatment. Per Dr. Craig, RT is switching treatments to Levalbuterol Q6 Hours and will try with pt again. Pt is also refusing apnea link.
[2022-01-01] MEDS: amLODIPine BESYLATE 5 MG TABLET PO (21:03)
[2022-01-01] MEDS: INSULIN GLARGINE (*BKC) 100 UNITS/ML 15 UNITS SUB-Q (21:04)
[2022-01-01 21:23] LABS: Glucose Point of Care 260 mg/dl (65-105)
[2022-01-01 21:43] VITALS: BP 148/72; PULSE 80; RESP 18; TEMP 35.9; O2SAT 95
[2022-01-01 22:15] VITALS: O2SAT 96
--- NOTE | 2022-01-02 02:14 | PCRCNOTE ---
RT changed medication from Albuterol to Levalbuterol and attempted 0200 treatment. Pt stated that he was uninterested in trying the Levalbuterol due to the fact that he is on a fluid restriction and 'can not rinse his mouth after treatment.' RT informed pt to call if he was in need of treatment.
[2022-01-02] MEDS: HYDROmorphone HCL INJ (*CRX) 1 MG/ML SYR IV PUSH ×4 (02:38→18:35)
--- NOTE | 2022-01-02 05:37 | PCRCNOTE ---
After further explanation to the pt about what an apnea link study entails, pt stated he would think about it and possibly do it on 8/4 PM.
[2022-01-02] MEDS: GABAPENTIN 100 MG CAPSULE PO ×3 (05:52→22:19)
[2022-01-02] MEDS: MAGNES & ALUM HYD/SIMETH/DIPHENHYD/LIDOCAINE 119 ML MOUTHWASH BY MOUTH ×5 (05:52→22:19)
[2022-01-02] MEDS: LEVOTHYROXINE SODIUM 50 MCG TABLET PO (05:53)
[2022-01-02] MEDS: CENTRAL LINE FLUSH 10 ML IV PUSH ×4 (05:53→22:19)
[2022-01-02 06:00] VITALS: BP 152/79; PULSE 87; RESP 18; TEMP 35.9; O2SAT 97
[2022-01-02 06:28] LABS: Estimated CRCL calculation 101 ml/min; Estimated Glomerular Filt Rate > 60
[2022-01-02 07:55] LABS: Glucose Point of Care 219 mg/dl (65-105)
[2022-01-02 08:00] VITALS: PULSE 87; RESP 18; O2SAT 97
--- NOTE | 2022-01-02 08:51 | PCWOUND ---
CWON NOTE received consult for patient to have culture, cleaning and dressing applied to the right forearm. Patient was seen by wound care on 12/27/21. Patient has wound care orders. Spoke with patient's RN Teresa who can perform culture and can clean and re-dress wound.
[2022-01-02 08:52] LABS: Anion Gap 6 mmol/L (8-16); Blood Urea Nitrogen 17 mg/dL (9-20); Calcium 7.6 mg/dL (8.4-10.2); Carbon Dioxide 32 mmol/L (22-30); Chloride 98 mmol/L (98-107); Estimated CRCL calculation 82 ml/min; Estimated Glomerular Filt Rate > 60; Glucose 186 mg/dL (65-110); Potassium 4.1 mmol/L (3.4-5.0); Sodium 136 mmol/L (137-145)
[2022-01-02] MEDS: INSULIN ASPART (*BKC) 100 UNITS/ML SUB-Q ×2 (09:13→13:07)
[2022-01-02] MEDS: INSULIN ASPART (*BKC) 100 UNITS/ML 6 UNITS SUB-Q ×3 (09:14→18:36)
[2022-01-02] MEDS: FUROSEMIDE 20 MG TABLET PO ×2 (09:14→18:36)
[2022-01-02] MEDS: ENOXAPARIN 40 MG/0.4 ML SYRINGE SUB-Q (09:14)
[2022-01-02] MEDS: PANTOPRAZOLE SOD SESQUIHYDRATE 20 MG TAB PO (09:16)
[2022-01-02] MEDS: TAMSULOSIN HCL 0.4 MG CAPSULE PO (09:16)
[2022-01-02] MEDS: MICONAZOLE NITRATE 2% CREAM 30 GM TUBE 1 APPLIC TOPICAL (09:16)
[2022-01-02] MEDS: MELOXICAM 7.5 MG TABLET 15 MG PO (09:16)
[2022-01-02 10:35] LABS: Hematocrit 35.7 % (42.0-52.0); Hemoglobin 11.4 g/dL (14.0-18.0); Mean Corpuscular HGB Conc 31.9 g/dl (32-36); Mean Corpuscular Hemoglobin 29.9 pg (26-34); Mean Corpuscular Volume 93.7 fl (80-100); Mean Platelet Volume 9.5 fl (7.4-10.4); Platelet Count Result 257 k/mm3 (150-375); Red Blood Count 3.81 M/mm3 (4.6-6.20); White Blood Count 14.4 K/mm3 (4.5-10.0)
--- NOTE | 2022-01-02 10:38 | PCNWS ---
Weekly nutritional screen. Patient is tolerating current diet with adequate intake. No weight loss reported. No nutritional needs at this time.
[2022-01-02 11:52] LABS: Glucose Point of Care 314 mg/dl (65-105)
--- NOTE | 2022-01-02 13:29 | P.PNIM_ITS ---
Progress Note: A&P Assessment and Plan (1) Sepsis: Code(s): A41.9 - Sepsis, unspecified organism Status: Acute Assessment and Plan: Monitor I&Os, vital signs, neuro status and patient is a fall risk Monitor serum electrolytes, CBC, WBC, temperature curve and follow cultures Resuscitated with IV fluids admission IV Vancomycin, consult pharmacy to dose, send Vancomycin trough levels before 4th dose, Zosyn 3.375mg Q 6 hours. consitnue Azithromax. His arm does appears to be improving. Continue monitor clinical status. Pulses to the right upper extremity WNL, sensation still intact. Capillary refill appropriate. P.r.n. Tylenol, Zofran, and melatonin (2) Cellulitis of right upper extremity: Code(s): L03.113 - Cellulitis of right upper limb Status: Acute Assessment and Plan: Continue IV antibiotics cultures in progress supportive care Will get CT upper extremity to rule out any underlying drainable collections Leukocytosis improved on current regimen. Will continue same for now Will check ASO titer (3) Atrial fib/flutter, transient: Status: Acute Assessment and Plan: continue amiodarone Not on anticoagulation. Does not follow With any healthcare administration intern. 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 Status: Acute Assessment and Plan: unchanged (5) Essential hypertension: Code(s): I10 - Essential (primary) hypertension Status: Acute Assessment and Plan: continue home meds (6) Type 2 diabetes mellitus: Qualifiers: Diabetes mellitus snf insulin use: without manager terminal use Diabetes mellitus complication status: with neurologic complications Diabetes mellitus complication detail: with autonomic neuropathy Qualified Code(s): E11.43 - Type 2 diabetes mellitus with diabetic autonomic (poly)neuropathy Code(s): E11.9 - Type 2 diabetes mellitus without complications Status: Acute Assessment and Plan: insulin sliding scale as needed 1800 calorie carb consistent diet (7) URSULA (acute kidney injury): Code(s): N17.9 - Acute kidney failure, unspecified Status: Acute Assessment and Plan: likely secondary to sepsis receiving IV fluids repeat BMP in a.m. (8) Urinary retention: Code(s): R33.9 - Retention of urine, unspecified Status: Acute Assessment and Plan: patient may be experiencing urinary retention. bladder scan reported to be unremarkable however in her low PT resolved. He does report nocturia and frequency of urination Will check urinalysis and urine culture We will add Flomax as suspect he has underlying prostatic hypertrophy. (9) Hyponatremia: Code(s): E87.1 - Hypo-osmolality and hyponatremia Status: Acute Assessment and Plan: continue with fluid restriction, provide gentle IV fluid resusitation limit free water intake Improved Plan Morbid obesity Suspect underlying sleep apnea apnea will do apnea link test Conversational dyspnea no formal lung diagnosis reported. Will check echocardiogram does have history of atrial fibrillation but remains in sinus rhythm he is on chronic amiodarone therapy so lung toxicity related to chronic amiodarone therapy is possibility as well may need high-resolution CT scan to further evaluate his dyspnea. Will check his BNP as well as underlying congestive heart failure is suspected as well. Will give a dose of Lasix today for his lower extremity edema and overall hypervolemia and follow cl
[2022-01-02 14:00] VITALS: BP 146/76; PULSE 75; RESP 18; TEMP 36.2; O2SAT 97
--- NOTE | 2022-01-02 16:53 | PM.CNGS ---
Assessment and Plan Assessment and plan (1) Abscess of right upper arm and forearm: Code(s): L02.413 - Cutaneous abscess of right upper limb Status: Acute Assessment and Plan: Right upper extremity ultrasound today showed a large abscess located on the posterior aspect of the arm beginning just above the elbow in the distal upper arm and extending caudally to approximately the mid forearm where they were unable to image due to a large draining open wound. On exam, the wound is draining purulent fluid consistent with an abscess and tunnels in the direction described on the ultrasound. This is an extensive abscess that will need to be drained in the OR. The patient has already ate today, therefore this could not be done this afternoon. I have discussed the case with Dr. Molina. This is a complex, large, and extensive abscess. Considering the extensive nature and location of this abscess, we would recommend plastic surgery consultation. I will make the patient NPO after midnight in case of surgery tomorrow. Wound cultures pending. Continue IV antibiotics. Continue local wound care with gauze dressing changes daily and as needed. They were previously placing mupirocin ointment over the open wound, but we could consider packing this area depending on if the patient goes to surgery for incision and drainage. Thank you for allowing us to see the patient in consultation. (2) Cellulitis of right upper extremity: Code(s): L03.113 - Cellulitis of right upper limb Status: Acute Assessment and Plan: Continue broad-spectrum IV antibiotics. Wound culture obtained today. Cellulitis appears to be improving and WBC count improving, but he has now developed an abscess. See plan above. Elevate right upper extremity. Discussed continuing to do bed exercises and mobility exercises even of the right upper extremity. (3) Type 2 diabetes mellitus: Qualifiers: Diabetes mellitus nursing home insulin use: without supervisor intermediates use Diabetes mellitus complication status: with neurologic complications Diabetes mellitus complication detail: with autonomic neuropathy Qualified Code(s): E11.43 - Type 2 diabetes mellitus with diabetic autonomic (poly)neuropathy Code(s): E11.9 - Type 2 diabetes mellitus without complications Status: Acute Assessment and Plan: Hgb A1C on 12/30/21 was 9.0 and his glucose is currently in the 200-300's. Hospitalist managing his diabetes and glucose control. Discussed the importance of glycemic control with the patient while dealing with this infection. (4) Atrial fib/flutter, transient: Status: Acute Assessment and Plan: Does not take any anticoagulation. 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 Molina. Thank you for allowing us to see the patient in consultation and we will continue to follow along with you. History of Present Illness Consult details Consult date: 01/02/22 Reason for consult: other (Right upper extremity cellulitis with possible abscess) Requesting physician: Matheus Ag MD Narrative: This is a 66-year-old man with a history of type 2 diabetes mellitus, peripheral neuropathy, paroxysmal atrial fibrillation, and other medical problems, who presented to the emergency department on 12/26/2021 from assisted living due to right upper extremity swelling and redness. He had noticed worsening swelling and redness to his right arm for 3 days prior to coming into the ER. He had not noticed an insect bite or w
[2022-01-02 16:59] LABS: Glucose Point of Care 119 mg/dl (65-105)
[2022-01-02] MEDS: AMIODARONE HCL 200 MG TABLET PO (18:36)
[2022-01-02 20:00] VITALS: PULSE 74; RESP 14; O2SAT 98
[2022-01-02 22:00] VITALS: BP 144/87; PULSE 74; RESP 14; TEMP 36.7; O2SAT 98
[2022-01-02] MEDS: amLODIPine BESYLATE 5 MG TABLET PO (22:18)
[2022-01-02] MEDS: MUPIROCIN 2% OINT 22 GM TUBE 1 APPLIC TOPICAL (22:19)
[2022-01-02] MEDS: INSULIN GLARGINE (*BKC) 100 UNITS/ML 15 UNITS SUB-Q (22:26)
[2022-01-02 22:42] LABS: Glucose Point of Care 206 mg/dl (65-105)
--- NOTE | 2022-01-02 23:01 | PCRCNOTE ---
Pt. does not want apnea link gricelda, states he is having a procedure on his arm in am & doesn't want apnea link now
[2022-01-03] VITALS (9 sets, daily range): BP systolic 114–171; BP diastolic 76–91; PULSE 70–82; RESP 16–20; TEMP 35.8–36.7; O2SAT 95–99
[2022-01-03] MEDS: HYDROmorphone HCL INJ (*CRX) 1 MG/ML SYR IV PUSH ×4 (01:22→21:05)
[2022-01-03] MEDS: MAGNES & ALUM HYD/SIMETH/DIPHENHYD/LIDOCAINE 119 ML MOUTHWASH BY MOUTH ×4 (01:24→21:51)
[2022-01-03 04:20] LABS: Hematocrit 35.6 % (42.0-52.0); Hemoglobin 11.4 g/dL (14.0-18.0); Mean Corpuscular Hemoglobin 29.8 pg (26-34); Mean Corpuscular Volume 93.2 fl (80-100); Mean Platelet Volume 9.3 fl (7.4-10.4); Platelet Count Result 260 k/mm3 (150-375); Red Blood Count 3.82 M/mm3 (4.6-6.20); Red Cell Distribution Width 12.8 % (11.5-14.5); White Blood Count 12.1 K/mm3 (4.5-10.0)
[2022-01-03 04:30] LABS: Anion Gap 3 mmol/L (8-16); Blood Urea Nitrogen 15 mg/dL (9-20); Calcium 7.6 mg/dL (8.4-10.2); Carbon Dioxide 35 mmol/L (22-30); Chloride 98 mmol/L (98-107); Estimated CRCL calculation 75 ml/min; Estimated Glomerular Filt Rate > 60; Glucose 184 mg/dL (65-110); Potassium 3.9 mmol/L (3.4-5.0); Sodium 136 mmol/L (137-145)
[2022-01-03 05:04] LABS: Vancomycin Trough 12.4 ug/mL (10.0-20.0)
[2022-01-03] MEDS: CENTRAL LINE FLUSH 10 ML IV PUSH ×3 (06:00→22:12)
[2022-01-03] MEDS: GABAPENTIN 100 MG CAPSULE PO ×2 (06:00→21:53)
[2022-01-03] MEDS: LEVOTHYROXINE SODIUM 50 MCG TABLET PO (06:00)
--- NOTE | 2022-01-03 07:49 | WPDCN ---
Assessment and Plan Assessment and plan (1) Abscess of right upper arm and forearm: Code(s): L02.413 - Cutaneous abscess of right upper limb Status: Acute Assessment and Plan: Pt improving on IV antibiotics. Needs to have abscess drained. HPI Data of Consult Date/Time: 01/03/22 07:49 Requesting Physician: Francisco J Shah MD Primary Care Provider: Saqib Anderson DO Consult Narrative Reason for consult: Subcutaneous abscess of right arm and forearm. Narrative: Carl Guzman is a 66 year old male with DM admitted with swelling and erythema and pain in his right UE beginning ~9 days ago. Cause unknown Admitted with WBC of 20. Has been on IV antibiotics that have reduced the swelling and area of erythema. Pt is able to now flex and extend his fingers and wrist without discomfort. STACEY has revealed a large area of abscess extending from the posterior arm past the elbow and into the dorsal forearm. At that site there has been drainage of pus, wick placed and cultures taken. WBC now ~12 and the patient is afebrile. Serum glucose has been as high as 400. Review of Systems Constitutional: Comments: Pt is verbal and informative. He says he has been uncomfortable and expresses distress over his general condition and fear of going under general anesthesia. Musculoskeletal: Comments: Severe ankle deformity on the left that is chronic. Integumentary/Breasts: Comments: Multiple draining sites on the dorsal forearm. [facility] Past Medical History Medical History (Updated 01/02/22 @ 17:08 by GINETTE Lockhart) Anxiety Arthritis Atrial fib/flutter, transient Charcot Acacia Tooth muscular atrophy COVID-19 Diabetes Heartburn High cholesterol History of fracture of tibia Hypertension Peripheral autonomic neuropathy due to diabetes mellitus Skin ulcer SOB (shortness of breath) on exertion Vision changes Family History Family History Father Alcoholism Diabetes mellitus Mother Diabetes mellitus Heart disease Sibling Alcoholism Diabetes mellitus Hypertension Other Arthritis Depression HLD (hyperlipidemia) Kidney disorder Neuropathy Social History Social History Smoking status: Never smoker Second hand tobacco smoke exposure: No Alcohol intake: never Substance use: never Substance use type: does not use Gender identity (if verbalized by the patient): Male Spiritual care concerns: No Meds Home Medications and Allergies Home Medications Medication Instructions Recorded Confirmed Type levothyroxine 50 mcg capsule 50 mcg PO DAILY 04/23/21 12/26/21 History amlodipine 5 mg tablet 5 mg PO DAILY #30 tabs 09/26/21 12/26/21 Rx gabapentin 100 mg capsule 100 mg PO Q8H #90 caps 09/26/21 12/26/21 Rx meloxicam 15 mg tablet 15 mg PO DAILY #30 tabs 09/26/21 12/26/21 Rx pantoprazole 20 mg tablet,delayed 20 mg PO QAM #90 tabs 10/03/21 12/26/21 Rx release metformin 500 mg tablet 500 mg PO DAILY #90 tabs 10/29/21 12/26/21 Rx amiodarone 200 mg tablet 200 mg PO DAILY #30 tabs 11/27/21 12/26/21 Rx hydrocodone 10 mg-acetaminophen 1 tablet PO Q6H PRN pain #120 tabs 12/04/21 12/26/21 Rx 325 mg tablet ketoconazole 2 % topical cream 1 applic topical DAILY rt arm rash 12/26/21 12/26/21 History linagliptin 5 mg tablet (Tradjenta) 5 mg PO DAILY 12/26/21 12/26/21 History Allergies Allergy/AdvReac Type Severity Reaction Status Date / Time No Known Allergies Allergy Verified 11/27/21 13:51 Vital Signs Vital Signs - 24 hr 01/02/22 08:00 01/02/22 14:00 01/02/22 22:00 Temperature 97.2 F L 98.0 F Pulse Rate 87 75 74 Respiratory Rate 18 18 14 Blood Pressure 146/76 H 144/87 H Pulse Oximetry 97 97 98 Oxygen Delivery Room Air 01/02/22 20:00 01/03/22 06:00 Temperature 96.9 F L Pulse Rate 74 82 Respiratory Rate 14 16 Blood Pressure 171/91 H Pulse Oximetry 9
[2022-01-03 07:52] LABS: Glucose Point of Care 212 mg/dl (65-105)
--- NOTE | 2022-01-03 09:53 | PM.PNGS ---
Progress Note: A&P Assessment and Plan (1) Abscess of right upper arm and forearm: Code(s): L02.413 - Cutaneous abscess of right upper limb Status: Acute Assessment and Plan: Have discussed the situation with Dr. Hooker. Appreciate his input and expertise. He feels patient should have more extensive drainage with perhaps counter incision in the OR and washout today. He is ranging same. He appreciated our drainage yesterday and thinks the patient is better because of it. At this point will sign off and leave recommendations is for skin and subcutaneous tissue care up to Dr. Hooker. Thank you for involving us in this patient's care. Subjective Subjective Date/Time Seen: 01/03/22 09:53 Patient reports: feels better and still having pain ( Right arm) Review of Systems Constitutional: Constitutional: Reports as per HPI, Denies chills and Denies fever(s) Cardiovascular: Cardiovascular: Denies chest pain and Denies dyspnea Respiratory: Respiratory: Reports no additional respiratory complaints and Denies dyspnea Integumentary/Breasts: Comments: erythema and swelling seems better in his right hand. ( I did not examine his upper arm as Dr. Morro tierney just been here). Psychiatric: Comments: history of mild dementia and occasional odd behaviors Exam Const: General: alert, awake and tired appearing; No acute distress Limitations: behavioral limitations ( occasional odd behaviors per [place] nurse practitioner and nurses.) Skin: Other: Erythema and swelling seems better in his right hand. ( I did not examine his upper arm as Dr. Morro tierney just been here). Objective Data Vital Signs Vital Signs: Vital Signs - 24 hr 01/02/22 14:00 01/02/22 22:00 01/02/22 20:00 Temperature 36.2 C L 36.7 C Pulse Rate 75 74 74 Respiratory Rate 18 14 14 Blood Pressure 146/76 H 144/87 H Pulse Oximetry 97 98 98 Oxygen Delivery Room Air 01/03/22 06:00 Temperature 36.1 C L Pulse Rate 82 Respiratory Rate 16 Blood Pressure 171/91 H Pulse Oximetry 95 Oxygen Delivery Intake/Output Intake/Output: Intake & Output 12/31/21 01/01/22 01/02/22 01/03/22 23:59 23:59 23:59 23:59 Intake Total 2322 2270 1640 50 Output Total 2350 3425 1500 2500 Balance -28 -1975 140 -2450 Meds/Results Medications: Active Medications Generic Name Dose Route Start Last Admin Trade Name Freq PRN Reason Stop Dose Admin Acetaminophen 1,000 mg 12/26/21 04:45 Acetaminophen 500 Mg Tablet PO Q6H PRN Mild Pain (1-3) or Fever Hydrocodone Bitart/Acetaminophen 1 tab 12/26/21 04:42 01/01/22 18:11 Hydrocodone/Acetaminophen (*Crx) 10-325 Mg Tablet PO 1 tab Q6H PRN Administration Pain Rated 4-6 Amiodarone HCl 200 mg 12/26/21 17:00 01/02/22 18:36 Amiodarone Hcl 200 Mg Tablet PO 200 mg DAILY@1700 NANCY Administration Amlodipine Besylate 5 mg 12/26/21 21:00 01/02/22 22:18 Amlodipine Besylate 5 Mg Tablet PO 5 mg HS NANCY Administration Benzocaine 1 lozenge 12/30/21 08:13 12/31/21 04:54 Benzocaine/Menthol (*Bkc) 18 Ea Lozenge PO 1 lozenge PRN PRN Administration Sore Throat Dextrose 12.5 gm 12/30/21 22:39 Dextrose 50% 25 Gm/50 Ml Syringe IV PUSH PRN PRN Hypoglycemia Protocol Docusate Sodium 100 mg 01/01/22 17:56 Docusate Sodium 100 Mg Capsule PO Q12H PRN Constipation Enoxaparin Sodium 40 mg 12/26/21 09:00 01/03/22 08:11 Enoxaparin 40 Mg/0.4 Ml Syringe SUB-Q Not Given DAILY NANCY Furosemide 20 mg 01/02/22 09:00 01/02/22 18:36 Furosemide 20 Mg Tablet PO 20 mg BID NANCY Administration Gabapentin 100 mg 12/26/21 06:00 01/03/22 06:00 Gabapentin 100 Mg Capsule PO 100 mg Q8HR NANCY Administration Glucagon 1 mg 12/30/21 22:39 Glucagon For Inj 1 Mg Vial IM PRN PRN Hypoglycemia Protocol Glucose 15 gm 12/30/21 22:39 Glucose Oral Gel 15 Gm Of Glucse In 37.5 Gm Tube PO PRN PRN Hyp
[2022-01-03 11:48] LABS: Glucose Point of Care 196 mg/dl (65-105)
[2022-01-03] MEDS: LACTATED RINGERS 1,000 ML 30 ML IV CONT (13:30)
--- NOTE | 2022-01-03 13:56 | WPDANESEPPF ---
Anes - Initial Pre Proc Eval Procedure: Operation Date: 01/03/22 14:00 Proposed Procedures p Drainage Abscess Right Arm and Forearm - Ronald Hooker MD Date/Time: 01/03/22 13:56 Surgeon: Francisco J Shah MD Pre Op Diagnosis: cellulitis Patient Data Age: 66 Gender: M Height: 1.85 m Weight: 111 kg Last Vital Signs Temp 96.9 F L 01/03/22 06:00 Pulse 82 01/03/22 08:00 Resp 16 01/03/22 08:00 BP 171/91 H 01/03/22 06:00 Pulse Ox 95 01/03/22 08:00 O2 Del Method Room Air 01/03/22 08:00 Allergies Allergy/AdvReac Type Severity Reaction Status Date / Time No Known Allergies Allergy Verified 01/03/22 14:01 Home Medications Medication Instructions Recorded Confirmed Type levothyroxine 50 mcg capsule 50 mcg PO DAILY 04/23/21 12/26/21 History amlodipine 5 mg tablet 5 mg PO DAILY #30 tabs 09/26/21 12/26/21 Rx gabapentin 100 mg capsule 100 mg PO Q8H #90 caps 09/26/21 12/26/21 Rx meloxicam 15 mg tablet 15 mg PO DAILY #30 tabs 09/26/21 12/26/21 Rx pantoprazole 20 mg tablet,delayed 20 mg PO QAM #90 tabs 10/03/21 12/26/21 Rx release metformin 500 mg tablet 500 mg PO DAILY #90 tabs 10/29/21 12/26/21 Rx amiodarone 200 mg tablet 200 mg PO DAILY #30 tabs 11/27/21 12/26/21 Rx hydrocodone 10 mg-acetaminophen 1 tablet PO Q6H PRN pain #120 tabs 12/04/21 12/26/21 Rx 325 mg tablet ketoconazole 2 % topical cream 1 applic topical DAILY rt arm rash 12/26/21 12/26/21 History linagliptin 5 mg tablet (Tradjenta) 5 mg PO DAILY 12/26/21 12/26/21 History Laboratory Tests 01/02/22 01/02/22 01/03/22 16:46 22:24 04:11 WBC 12.1 K/mm3 H K/mm3 (4.5-10.0) RBC 3.82 M/mm3 L M/mm3 (4.6-6.20) Hgb 11.4 g/dL L g/dL (14.0-18.0) Hct 35.6 % L % (42.0-52.0) MCV 93.2 fl fl (80-100) MCH 29.8 pg pg (26-34) MCHC 32.0 g/dl g/dl (32-36) RDW 12.8 % % (11.5-14.5) Plt Count 260 k/mm3 k/mm3 (150-375) MPV 9.3 fl fl (7.4-10.4) Sodium Potassium Chloride Carbon Dioxide Anion Gap BUN Creatinine Estim Creat Clear Calc Estimated GFR Glucose POC Capillary Glucose 119 mg/dl H mg/dl 206 mg/dl H mg/dl (65-105) (65-105) Calcium Vancomycin Trough 01/03/22 01/03/22 01/03/22 04:11 04:11 07:47 WBC RBC Hgb Hct MCV MCH MCHC RDW Plt Count MPV Sodium 136 mmol/L L mmol/L (137-145) Potassium 3.9 mmol/L mmol/L (3.4-5.0) Chloride 98 mmol/L mmol/L (98-107) Carbon Dioxide 35 mmol/L H mmol/L (22-30) Anion Gap 3 mmol/L L mmol/L (8-16) BUN 15 mg/dL mg/dL (9-20) Creatinine 1.10 mg/dL mg/dL (0.7-1.3) Estim Creat Clear Calc 75 ml/min ml/min Estimated GFR > 60 (59 - ) Glucose 184 mg/dL H mg/dL (65-110) POC Capillary Glucose 212 mg/dl H mg/dl (65-105) Calcium 7.6 mg/dL L mg/dL (8.4-10.2) Vancomycin Trough 12.4 ug/mL ug/mL (10.0-20.0) 01/03/22 11:42 WBC RBC Hgb Hct MCV MCH MCHC RDW Plt Count MPV Sodium Potassium Chloride Carbon Dioxide Anion Gap BUN Creatinine Estim Creat Clear Calc Estimated GFR Glucose POC Capillary Glucose 196 mg/dl H mg/dl (65-105) Calcium Vancomycin Trough Patient hx anesthesia problems: none Family hx anesthesia problems: none Results Review: All pre-operative results and documents have been reviewed as part of the pre-operative evaluation. [facility] Past Medical History Medical History (Updated 01/02/22 @ 17:08 by Tobias
--- NOTE | 2022-01-03 14:07 | WPDHPUPDATE1 ---
History and Physical Update Update Date/Time: 01/03/22 14:07 History and Physical has been reviewed, including an updated exam of the patient. There are NO changes in the patient's condition. Risks, benefits, and alternatives have been discussed and questions answered. Patient agrees to proceed with procedure.
--- NOTE | 2022-01-03 14:35 | PM.IMPN ---
Progress Note: A&P Assessment and Plan (1) Sepsis: Code(s): A41.9 - Sepsis, unspecified organism Status: Acute Assessment and Plan: Monitor I&Os, vital signs, neuro status and patient is a fall risk Monitor serum electrolytes, CBC, WBC, temperature curve and follow cultures Resuscitated with IV fluids admission IV Vancomycin, consult pharmacy to dose, send Vancomycin trough levels before 4th dose, Zosyn 3.375mg Q 6 hours. consitnue Azithromax. His arm does appears to be improving. Continue monitor clinical status. Pulses to the right upper extremity WNL, sensation still intact. Capillary refill appropriate. P.r.n. Tylenol, Zofran, and melatonin (2) Cellulitis of right upper extremity: Code(s): L03.113 - Cellulitis of right upper limb Status: Acute Assessment and Plan: Continue IV antibiotics cultures in progress supportive care Will get CT upper extremity to rule out any underlying drainable collections Leukocytosis improved on current regimen. Will continue same for now Will check ASO titer (3) Atrial fib/flutter, transient: Status: Acute Assessment and Plan: continue amiodarone Not on anticoagulation. Does not follow With any electrician research. 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 Status: Acute Assessment and Plan: unchanged (5) Essential hypertension: Code(s): I10 - Essential (primary) hypertension Status: Acute Assessment and Plan: continue home meds (6) Type 2 diabetes mellitus: Qualifiers: Diabetes mellitus penitentiary insulin use: without termite control representative use Diabetes mellitus complication status: with neurologic complications Diabetes mellitus complication detail: with autonomic neuropathy Qualified Code(s): E11.43 - Type 2 diabetes mellitus with diabetic autonomic (poly)neuropathy Code(s): E11.9 - Type 2 diabetes mellitus without complications Status: Acute Assessment and Plan: insulin sliding scale as needed 1800 calorie carb consistent diet (7) URSULA (acute kidney injury): Code(s): N17.9 - Acute kidney failure, unspecified Status: Acute Assessment and Plan: likely secondary to sepsis receiving IV fluids repeat BMP in a.m. (8) Urinary retention: Code(s): R33.9 - Retention of urine, unspecified Status: Acute Assessment and Plan: patient may be experiencing urinary retention. bladder scan reported to be unremarkable however in her low PT resolved. He does report nocturia and frequency of urination Will check urinalysis and urine culture We will add Flomax as suspect he has underlying prostatic hypertrophy. (9) Hyponatremia: Code(s): E87.1 - Hypo-osmolality and hyponatremia Status: Acute Assessment and Plan: continue with fluid restriction, provide gentle IV fluid resusitation limit free water intake Improved Plan Morbid obesity Suspect underlying sleep apnea apnea will do apnea link test Conversational dyspnea no formal lung diagnosis reported. Will check echocardiogram does have history of atrial fibrillation but remains in sinus rhythm he is on chronic amiodarone therapy so lung toxicity related to chronic amiodarone therapy is possibility as well may need high-resolution CT scan to further evaluate his dyspnea. Will check his BNP as well as underlying congestive heart failure is suspected as well. Will give a dose of Lasix today for his lower extremity edema and overall hypervolemia and follow clinical course. He is also quite positive since admission. Cumulative 14 L positive. Weight is up 6 kilos but has not been checked since past few days. Will put on weight every day. . # No lower extremity edema attributes to his amlodipine. With conversational dyspnea noted no prior diagnosis of COPD or any lung disease along with a nonsmoker/ never smoker
[2022-01-03] MEDS: fentaNYL CITRATE INJ (*CRX) 100 MCG/2 ML VIAL 25 MCG IV PUSH ×8 (15:55→16:29)
--- NOTE | 2022-01-03 16:03 | P.OP_ITS ---
Procedure Note - Detailed Date of Procedure 01/03/22 Pre-op Diagnosis Abscess of the right axilla, arm and forearm Post-op Diagnosis Same Procedure Performed Incision and drainage of extensive abscess of the right axilla, arm and forearm with excision of necrotic subcutaneous fascia and skin. Surgeon Ronald Hooker MD Filler Machine Operator [place] S Anesthesia General Indications Abscess Findings Extensive abscess from the right dorsal forearm tracking proximally across the extensor elbow into the medial and posterior arm into the posterior axilla Description of Procedure The site was marked on the patient in the holding area. He was then taken to the operating room and placed supine on the operating table. He was given general endotracheal anesthesia. The right upper extremity to the to the lateral chest was prepped and draped in the usual fashion. A time-out was held and confirmed. There was erythema and swelling with induration at the posterior axillary line and and no room to apply a tourniquet. We also did not use lidocaine with epinephrine. The incisions were begun over the dorsal forearm where there was already drainage and a wick had been applied earlier in the day. Additional 50 cc of pus was found in this area it was external to the muscle fascia but did involve liquefaction of some of the muscle fascia. Ten cm of necrotic skin wound margins in this area were sharply excised. A lot of the exploration was done digitally. The abscess tracked across the olecranon into the posterior arm. I did not incise over the elbow. Three smaller incisions were made in the posterior arm over the redder more fluctuant areas. Digital dissection revealing abscess pockets led to joining these into a near full length incision in the posterior arm. This allowed better visual evaluation of the extent of the abscess and excisional debridement of the non viable fascia. The the course of the dissection led into the posterior axilla. The most posterior inferior incision made was about 3 cm long at the inferior posterior axillary line. This turned out to be right at the the posterior extent of the abscess cavity and we were able to irrigate through that and apply vaginal packing to promote dependent drainage. Proximally 3 L of normal saline was irrigated through the wounds while abrading with the Ray-Fide sponge. We did check with the Gram stain report from a day or so ago. This reported some cocci and no boxcars. Approximately 6 feet of vaginal packing comprising 3 pieces were inserted in these wounds passing from 1 to the other to promote drainage. A major wound dressing pack and other gauze was applied without a compressive wrap. There was no significant bleeding during the end of the case. The patient was extubated and discharged from the operating room stable condition Estimated Blood Loss 200 Tourniquet Time 0 Urine Output 300 Drains No Packing Yes Pathology None sent Complications No immediate complications Condition Stable Disposition PACU
--- NOTE | 2022-01-03 16:03 | SUR.PHASEI ---
PATIENT REFUSING TO WEAR OXYGEN MASK AND SCDS.
[2022-01-03 16:05] LABS: Glucose Point of Care 156 mg/dl (65-105)
[2022-01-03] MEDS: AMIODARONE HCL 200 MG TABLET PO (18:04)
[2022-01-03] MEDS: FUROSEMIDE 20 MG TABLET PO (18:05)
--- NOTE | 2022-01-03 20:36 | PCRCNOTE ---
pt refused tx and apnea link tonight.
[2022-01-03] MEDS: INSULIN GLARGINE (*BKC) 100 UNITS/ML 15 UNITS SUB-Q (21:50)
[2022-01-03] MEDS: amLODIPine BESYLATE 5 MG TABLET PO (21:53)
[2022-01-03 22:57] LABS: Glucose Point of Care 186 mg/dl (65-105)
[2022-01-04] MEDS: LEVOTHYROXINE SODIUM 50 MCG TABLET PO (05:25)
[2022-01-04] MEDS: CENTRAL LINE FLUSH 10 ML IV PUSH ×4 (05:26→21:51)
[2022-01-04] MEDS: HYDROmorphone HCL INJ (*CRX) 1 MG/ML SYR IV PUSH ×3 (05:26→19:56)
[2022-01-04] MEDS: MAGNES & ALUM HYD/SIMETH/DIPHENHYD/LIDOCAINE 119 ML MOUTHWASH BY MOUTH ×5 (05:26→21:47)
[2022-01-04] MEDS: GABAPENTIN 100 MG CAPSULE PO ×3 (05:27→21:47)
[2022-01-04 06:00] VITALS: BP 121/77; PULSE 76; RESP 18; TEMP 35.9; O2SAT 96
[2022-01-04 06:23] LABS: Hematocrit 33.9 % (42.0-52.0); Hemoglobin 10.8 g/dL (14.0-18.0); Mean Corpuscular HGB Conc 31.9 g/dl (32-36); Mean Corpuscular Hemoglobin 29.6 pg (26-34); Mean Corpuscular Volume 92.9 fl (80-100); Platelet Count Result 302 k/mm3 (150-375); Red Blood Count 3.65 M/mm3 (4.6-6.20); Red Cell Distribution Width 12.9 % (11.5-14.5); White Blood Count 12.6 K/mm3 (4.5-10.0)
[2022-01-04 07:04] LABS: Anion Gap 6 mmol/L (8-16); Blood Urea Nitrogen 18 mg/dL (9-20); Calcium 7.5 mg/dL (8.4-10.2); Carbon Dioxide 32 mmol/L (22-30); Chloride 98 mmol/L (98-107); Estimated CRCL calculation 69 ml/min; Estimated Glomerular Filt Rate 50; Glucose 170 mg/dL (65-110); Potassium 3.8 mmol/L (3.4-5.0); Sodium 136 mmol/L (137-145)
[2022-01-04] MEDS: TAMSULOSIN HCL 0.4 MG CAPSULE PO (08:44)
[2022-01-04] MEDS: FUROSEMIDE 20 MG TABLET PO ×2 (08:44→17:55)
[2022-01-04] MEDS: MELOXICAM 7.5 MG TABLET 15 MG PO (08:44)
[2022-01-04] MEDS: PANTOPRAZOLE SOD SESQUIHYDRATE 20 MG TAB PO (08:44)
[2022-01-04] MEDS: INSULIN ASPART (*BKC) 100 UNITS/ML 6 UNITS SUB-Q ×3 (08:57→17:57)
[2022-01-04 08:58] LABS: Glucose Point of Care 159 mg/dl (65-105)
--- NOTE | 2022-01-04 10:02 | WPDANESPN ---
Anes - Prog Note Post-Op Date/Time: 01/04/22 10:02 Cardiovascular status: normal Respiratory status: normal Airway patency: baseline Mental status: baseline Post-Op hydration status: normal Vital Signs: Last Vital Signs Temp 35.9 C L 01/04/22 06:00 Pulse 76 01/04/22 06:00 Resp 18 01/04/22 06:00 BP 121/77 01/04/22 06:00 Pulse Ox 96 01/04/22 06:00 O2 Del Method Room Air 01/03/22 20:00 O2 Flow Rate 8 01/03/22 15:50 Pain Score (VAS): 07/11 I/O: Intake & Output 01/03/22 01/04/22 01/04/22 23:59 07:59 15:59 Intake Total 490 750 480 Output Total 1100 1350 100 Balance -610 -600 380 Laboratory Tests 01/04/22 05:10 01/04/22 05:10 01/03/22 01/03/22 01/03/22 11:42 15:58 21:49 WBC RBC Hgb Hct MCV MCH MCHC RDW Plt Count MPV Sodium Potassium Chloride Carbon Dioxide Anion Gap BUN Creatinine Estim Creat Clear Calc Estimated GFR Glucose POC Capillary Glucose 196 H 156 H 186 H Calcium 01/04/22 01/04/22 01/04/22 05:10 05:10 08:02 WBC 12.6 H RBC 3.65 L Hgb 10.8 L Hct 33.9 L MCV 92.9 MCH 29.6 MCHC 31.9 L RDW 12.9 Plt Count 302 MPV 10.0 Sodium 136 L Potassium 3.8 Chloride 98 Carbon Dioxide 32 H Anion Gap 6 L BUN 18 Creatinine 1.40 H Estim Creat Clear Calc 69 Estimated GFR 50 L Glucose 170 H POC Capillary Glucose 159 H Calcium 7.5 L Microbiology 01/02/22 09:58 Abscess Wound Culture - Preliminary Post-procedural complaints: none Patient Feedback: Patient satisfied with anesthetic care.
[2022-01-04 11:37] LABS: Glucose Point of Care 198 mg/dl (65-105)
--- NOTE | 2022-01-04 13:07 | PM.IMPN ---
Progress Note: A&P Assessment and Plan (1) Sepsis: Code(s): A41.9 - Sepsis, unspecified organism Status: Acute Assessment and Plan: Monitor I&Os, vital signs, neuro status and patient is a fall risk Monitor serum electrolytes, CBC, WBC, temperature curve and follow cultures Resuscitated with IV fluids admission IV Vancomycin, consult pharmacy to dose, send Vancomycin trough levels before 4th dose, Zosyn 3.375mg Q 6 hours. consitnue Azithromax. His arm does appears to be improving. Continue monitor clinical status. Pulses to the right upper extremity WNL, sensation still intact. Capillary refill appropriate. P.r.n. Tylenol, Zofran, and melatonin (2) Cellulitis of right upper extremity: Code(s): L03.113 - Cellulitis of right upper limb Status: Acute Assessment and Plan: Continue IV antibiotics cultures in progress supportive care Will get CT upper extremity to rule out any underlying drainable collections Leukocytosis improved on current regimen. Will continue same for now Will check ASO titer (3) Atrial fib/flutter, transient: Status: Acute Assessment and Plan: continue amiodarone Not on anticoagulation. Does not follow With any compensation and hris analyst. 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 Status: Acute Assessment and Plan: unchanged (5) Essential hypertension: Code(s): I10 - Essential (primary) hypertension Status: Acute Assessment and Plan: continue home meds (6) Type 2 diabetes mellitus: Qualifiers: Diabetes mellitus longterm insulin use: without intermediate school teacher use Diabetes mellitus complication status: with neurologic complications Diabetes mellitus complication detail: with autonomic neuropathy Qualified Code(s): E11.43 - Type 2 diabetes mellitus with diabetic autonomic (poly)neuropathy Code(s): E11.9 - Type 2 diabetes mellitus without complications Status: Acute Assessment and Plan: insulin sliding scale as needed 1800 calorie carb consistent diet (7) URSULA (acute kidney injury): Code(s): N17.9 - Acute kidney failure, unspecified Status: Acute Assessment and Plan: likely secondary to sepsis receiving IV fluids repeat BMP in a.m. (8) Urinary retention: Code(s): R33.9 - Retention of urine, unspecified Status: Acute Assessment and Plan: patient may be experiencing urinary retention. bladder scan reported to be unremarkable however in her low PT resolved. He does report nocturia and frequency of urination Will check urinalysis and urine culture We will add Flomax as suspect he has underlying prostatic hypertrophy. (9) Hyponatremia: Code(s): E87.1 - Hypo-osmolality and hyponatremia Status: Acute Assessment and Plan: continue with fluid restriction, provide gentle IV fluid resusitation limit free water intake Improved Plan Morbid obesity Suspect underlying sleep apnea apnea will do apnea link test Conversational dyspnea no formal lung diagnosis reported. Will check echocardiogram does have history of atrial fibrillation but remains in sinus rhythm he is on chronic amiodarone therapy so lung toxicity related to chronic amiodarone therapy is possibility as well may need high-resolution CT scan to further evaluate his dyspnea. Will check his BNP as well as underlying congestive heart failure is suspected as well. Will give a dose of Lasix today for his lower extremity edema and overall hypervolemia and follow clinical course. He is also quite positive since admission. Cumulative 14 L positive. Weight is up 6 kilos but has not been checked since past few days. Will put on weight every day. . # No lower extremity edema attributes to his amlodipine. With conversational dyspnea noted no prior diagnosis of COPD or any lung disease along with a nonsmoker/ never smoker
--- NOTE | 2022-01-04 13:42 | WPDPN ---
Progress Note: A&P Assessment and Plan (1) Abscess of right upper arm and forearm: Code(s): L02.413 - Cutaneous abscess of right upper limb Status: Acute Assessment and Plan: Pt appears to be doing well. Last pain med 0500. Plan Will need to reevaluate this large wound and change dressing in the OR tomorrow. Continue current antibiotics pending sensitivities. Subjective Date/time seen: 01/04/22 13:42 Interval history: POD 1 O&D extensive abscess of the R UE. Exam Narrative: Afebrile. Slight Leukocytosis. Pt up to commode. Extremity dressing has been reinforced. No active bleeding. wound cx with staph aureus. sens pending. Objective Data Vital Signs Vital Signs: Vital Signs - 24 hr 01/03/22 15:50 01/03/22 16:05 01/03/22 16:20 Temperature 98.1 F Pulse Rate 77 73 72 Respiratory Rate 16 16 18 Blood Pressure 114/76 127/82 116/84 Pulse Oximetry 99 97 97 Oxygen Delivery Simple Face Mask Room Air Room Air Oxygen Flow Rate 8 01/03/22 16:35 01/03/22 15:55 01/03/22 22:00 Temperature 96.5 F L Pulse Rate 72 73 Respiratory Rate 20 18 Blood Pressure 121/82 134/77 Pulse Oximetry 95 96 98 Oxygen Delivery Room Air Room Air Oxygen Flow Rate 01/03/22 20:00 01/04/22 06:00 Temperature 96.6 F L Pulse Rate 76 Respiratory Rate 18 Blood Pressure 121/77 Pulse Oximetry 96 Oxygen Delivery Room Air Oxygen Flow Rate Intake/Output Intake/Output: Intake & Output 01/01/22 01/02/22 01/03/22 01/04/22 23:59 23:59 23:59 23:59 Intake Total 2270 1640 1190 1330 Output Total 3425 1500 3900 1450 Balance -1155 140 -7410 -120 Meds/Results Medications: Active Medications Generic Name Dose Route Start Last Admin Trade Name Freq PRN Reason Stop Dose Admin Acetaminophen 1,000 mg 12/26/21 04:45 Acetaminophen 500 Mg Tablet PO Q6H PRN Mild Pain (1-3) or Fever Hydrocodone Bitart/Acetaminophen 1 tab 12/26/21 04:42 01/01/22 18:11 Hydrocodone/Acetaminophen (*Crx) 10-325 Mg Tablet PO 1 tab Q6H PRN Administration Pain Rated 4-6 Amiodarone HCl 200 mg 12/26/21 17:00 01/03/22 18:04 Amiodarone Hcl 200 Mg Tablet PO 200 mg DAILY@1700 NANCY Administration Amlodipine Besylate 5 mg 12/26/21 21:00 01/03/22 21:53 Amlodipine Besylate 5 Mg Tablet PO 5 mg HS NANCY Administration Benzocaine 1 lozenge 12/30/21 08:13 12/31/21 04:54 Benzocaine/Menthol (*Bkc) 18 Ea Lozenge PO 1 lozenge PRN PRN Administration Sore Throat Dextrose 12.5 gm 12/30/21 22:39 Dextrose 50% 25 Gm/50 Ml Syringe IV PUSH PRN PRN Hypoglycemia Protocol Docusate Sodium 100 mg 01/01/22 17:56 Docusate Sodium 100 Mg Capsule PO Q12H PRN Constipation Enoxaparin Sodium 40 mg 12/26/21 09:00 01/04/22 08:45 Enoxaparin 40 Mg/0.4 Ml Syringe SUB-Q Not Given DAILY NANCY Furosemide 20 mg 01/02/22 09:00 01/04/22 08:44 Furosemide 20 Mg Tablet PO 20 mg BID NANCY Administration Gabapentin 100 mg 12/26/21 06:00 01/04/22 13:37 Gabapentin 100 Mg Capsule PO 100 mg Q8HR NANCY Administration Glucagon 1 mg 12/30/21 22:39 Glucagon For Inj 1 Mg Vial IM PRN PRN Hypoglycemia Protocol Glucose 15 gm 12/30/21 22:39 Glucose Oral Gel 15 Gm Of Glucse In 37.5 Gm Tube PO PRN PRN Hypoglycemia Protocol Hydromorphone HCl 1 mg 12/26/21 04:45 01/04/22 13:37 Hydromorphone Hcl Inj (*Crx) 1 Mg/Ml Syr IV PUSH 1 mg Q3H PRN Administration Pain Rated 7-10 Piperacillin/Tazobactam/Dextrose 3.375 gm in 50 mls @ 100 mls/hr 12/26/21 05:00 01/04/22 11:57 Zosyn 3.375 Gm/D5w 50ml Pm IVPB Infused Q6H NANCY Infusion Vancomycin HCl 2,000 mg in 500 mls @ 250 mls/hr 12/29/21 17:00 01/04/22 01:05 Vancomycin 2,000 Mg/D5w 500 Ml IVPB Infused Q18H NANCY Infusion Dextrose 1,000 mls @ 100 mls/hr 12/30/21 22:39 Dextrose 5% 1,000 Ml IVPB PRN PRN Hypoglyc
[2022-01-04 14:00] VITALS: BP 171/67; PULSE 85; RESP 20; TEMP 36.6; O2SAT 95
[2022-01-04 16:48] LABS: Glucose Point of Care 155 mg/dl (65-105)
[2022-01-04 17:56] VITALS: PULSE 83
[2022-01-04] MEDS: AMIODARONE HCL 200 MG TABLET PO (17:56)
[2022-01-04 20:40] VITALS: PULSE 79; RESP 18; O2SAT 100
[2022-01-04 21:15] VITALS: PULSE 89; RESP 17
[2022-01-04] MEDS: INSULIN GLARGINE (*BKC) 100 UNITS/ML 15 UNITS SUB-Q (21:44)
[2022-01-04] MEDS: amLODIPine BESYLATE 5 MG TABLET PO (21:50)
[2022-01-04] MEDS: MUPIROCIN 2% OINT 22 GM TUBE 1 APPLIC TOPICAL (21:53)
[2022-01-04 22:00] VITALS: BP 142/70; PULSE 79; RESP 18; TEMP 36.3; O2SAT 100
[2022-01-04 22:35] LABS: Glucose Point of Care 277 mg/dl (65-105)
[2022-01-05] VITALS (12 sets, daily range): BP systolic 124–153; BP diastolic 69–99; PULSE 66–88; RESP 14–20; TEMP 35.8–36.4; O2SAT 93–100
[2022-01-05] MEDS: HYDROmorphone HCL INJ (*CRX) 1 MG/ML SYR IV PUSH ×3 (01:17→23:50)
[2022-01-05] MEDS: MAGNES & ALUM HYD/SIMETH/DIPHENHYD/LIDOCAINE 119 ML MOUTHWASH BY MOUTH ×5 (01:51→23:07)
[2022-01-05] MEDS: GABAPENTIN 100 MG CAPSULE PO ×3 (05:16→23:08)
[2022-01-05] MEDS: CENTRAL LINE FLUSH 10 ML IV PUSH ×4 (05:16→23:25)
[2022-01-05] MEDS: LEVOTHYROXINE SODIUM 50 MCG TABLET PO (05:17)
[2022-01-05 05:32] LABS: Anion Gap 4 mmol/L (8-16); Blood Urea Nitrogen 22 mg/dL (9-20); Calcium 7.6 mg/dL (8.4-10.2); Carbon Dioxide 32 mmol/L (22-30); Chloride 99 mmol/L (98-107); Estimated CRCL calculation 60 ml/min; Estimated Glomerular Filt Rate 43; Glucose 163 mg/dL (65-110); Potassium 3.7 mmol/L (3.4-5.0); Sodium 135 mmol/L (137-145)
[2022-01-05 06:11] LABS: Hematocrit 31.4 % (42.0-52.0); Hemoglobin 9.8 g/dL (14.0-18.0); Mean Corpuscular HGB Conc 31.2 g/dl (32-36); Mean Corpuscular Hemoglobin 29.4 pg (26-34); Mean Corpuscular Volume 94.3 fl (80-100); Mean Platelet Volume 9.9 fl (7.4-10.4); Platelet Count Result 254 k/mm3 (150-375); Red Blood Count 3.33 M/mm3 (4.6-6.20); Red Cell Distribution Width 12.8 % (11.5-14.5); White Blood Count 10.1 K/mm3 (4.5-10.0)
--- NOTE | 2022-01-05 07:28 | WPDPN ---
Progress Note: A&P Assessment and Plan (1) Abscess of right upper arm and forearm: Code(s): L02.413 - Cutaneous abscess of right upper limb Status: Acute Assessment and Plan: Reeval wound today and dressing change in the OR. (2) URSULA (acute kidney injury): Code(s): N17.9 - Acute kidney failure, unspecified Status: Acute Assessment and Plan: Will need to get off the combo of vanco sand Zosyn to limit kidney dysfunction. Subjective Date/time seen: 01/05/22 07:28 Interval history: Pt is verbally communicative. Expresses various concerns regarding anesthesia, jail out look for arm., post hospital care. Exam Narrative: Alert. Uses bedside commode. Has reportedly unwrapped his dressing during the night. Has signed consent for today's procedure. Creatinine has gone up and GFR is declining. Has karie on combination of Vanco and Zosyn. Sensitivities on wound culture are still pending. Objective Data Vital Signs Vital Signs: Vital Signs - 24 hr 01/04/22 14:00 01/04/22 17:56 01/04/22 21:15 Temperature 97.9 F Pulse Rate 85 83 89 Respiratory Rate 20 17 Blood Pressure 171/67 H Pulse Oximetry 95 Oxygen Delivery 01/04/22 22:00 01/04/22 20:40 01/05/22 06:00 Temperature 97.3 F L 96.5 F L Pulse Rate 79 79 81 Respiratory Rate 18 18 18 Blood Pressure 142/70 H 153/79 H Pulse Oximetry 100 100 100 Oxygen Delivery Room Air Intake/Output Intake/Output: Intake & Output 01/02/22 01/03/22 01/04/22 01/05/22 23:59 23:59 23:59 23:59 Intake Total 1640 1190 2300 Output Total 1500 3900 1450 800 Balance 140 -2710 850 -800 Meds/Results Medications: Active Medications Generic Name Dose Route Start Last Admin Trade Name Freq PRN Reason Stop Dose Admin Acetaminophen 1,000 mg 12/26/21 04:45 Acetaminophen 500 Mg Tablet PO Q6H PRN Mild Pain (1-3) or Fever Amiodarone HCl 200 mg 12/26/21 17:00 01/04/22 17:56 Amiodarone Hcl 200 Mg Tablet PO 200 mg DAILY@1700 NANCY Administration Amlodipine Besylate 5 mg 12/26/21 21:00 01/04/22 21:50 Amlodipine Besylate 5 Mg Tablet PO 5 mg HS NANCY Administration Benzocaine 1 lozenge 12/30/21 08:13 12/31/21 04:54 Benzocaine/Menthol (*Bkc) 18 Ea Lozenge PO 1 lozenge PRN PRN Administration Sore Throat Dextrose 12.5 gm 12/30/21 22:39 Dextrose 50% 25 Gm/50 Ml Syringe IV PUSH PRN PRN Hypoglycemia Protocol Docusate Sodium 100 mg 01/01/22 17:56 Docusate Sodium 100 Mg Capsule PO Q12H PRN Constipation Enoxaparin Sodium 40 mg 12/26/21 09:00 01/04/22 08:45 Enoxaparin 40 Mg/0.4 Ml Syringe SUB-Q Not Given DAILY NANCY Furosemide 20 mg 01/02/22 09:00 01/04/22 17:55 Furosemide 20 Mg Tablet PO 20 mg BID NANCY Administration Gabapentin 100 mg 12/26/21 06:00 01/05/22 05:16 Gabapentin 100 Mg Capsule PO 100 mg Q8HR NANCY Administration Glucagon 1 mg 12/30/21 22:39 Glucagon For Inj 1 Mg Vial IM PRN PRN Hypoglycemia Protocol Glucose 15 gm 12/30/21 22:39 Glucose Oral Gel 15 Gm Of Glucse In 37.5 Gm Tube PO PRN PRN Hypoglycemia Protocol Vancomycin HCl 2,000 mg in 500 mls @ 250 mls/hr 12/29/21 17:00 01/04/22 17:57 Vancomycin 2,000 Mg/D5w 500 Ml IVPB 250 mls/hr Q18H NANCY Administration Dextrose 1,000 mls @ 100 mls/hr 12/30/21 22:39 Dextrose 5% 1,000 Ml IVPB PRN PRN Hypoglycemia Protocol Insulin Aspart 3 - 6 units 12/31/21 08:00 01/04/22 17:53 Insulin Aspart (*Bkc) 100 Units/Ml SUB-Q Not Given TIDWM NANCY Protocol Insulin Aspart 6 units 01/01/22 08:00 01/04/22 17:57 Insulin Aspart (*Bkc) 100 Units/Ml SUB-Q 6 units TIDWM NANCY Administration Insulin Glargine 15 units 12/31/21 21:00 01/04/22 21:44 Insulin Glargine (*Bkc) 100 Units/Ml SUB-Q 15 units HS NANCY Administration Ipratropium [place] 0.5 mg 12/26/21 05:40 12/01
--- NOTE | 2022-01-05 07:43 | WPDANESEPPF ---
Anes - Initial Pre Proc Eval Procedure: Operation Date: 01/03/22 14:00 Proposed Procedures p Drainage Abscess Right Arm and Forearm - Ronald Hooker MD Operation Date: 01/05/22 07:30 Proposed Procedures p I&D Debride Upper Extremity Arm(Right) - Ronald Hooker MD Date/Time: 01/05/22 07:43 Surgeon: Francisco J Shah MD Pre Op Diagnosis: cellulitis Patient Data Age: 66 Gender: M Height: 1.85 m Weight: 145.4 kg Last Vital Signs Temp 35.8 C L 01/05/22 06:00 Pulse 81 01/05/22 06:00 Resp 18 01/05/22 06:00 BP 153/79 H 01/05/22 06:00 Pulse Ox 100 01/05/22 06:00 O2 Del Method Room Air 01/04/22 20:40 O2 Flow Rate 8 01/03/22 15:50 Allergies Allergy/AdvReac Type Severity Reaction Status Date / Time No Known Allergies Allergy Verified 01/03/22 14:01 Home Medications Medication Instructions Recorded Confirmed Type levothyroxine 50 mcg capsule 50 mcg PO DAILY 04/23/21 12/26/21 History amlodipine 5 mg tablet 5 mg PO DAILY #30 tabs 09/26/21 12/26/21 Rx gabapentin 100 mg capsule 100 mg PO Q8H #90 caps 09/26/21 12/26/21 Rx meloxicam 15 mg tablet 15 mg PO DAILY #30 tabs 09/26/21 12/26/21 Rx pantoprazole 20 mg tablet,delayed 20 mg PO QAM #90 tabs 10/03/21 12/26/21 Rx release metformin 500 mg tablet 500 mg PO DAILY #90 tabs 10/29/21 12/26/21 Rx amiodarone 200 mg tablet 200 mg PO DAILY #30 tabs 11/27/21 12/26/21 Rx hydrocodone 10 mg-acetaminophen 1 tablet PO Q6H PRN pain #120 tabs 12/04/21 12/26/21 Rx 325 mg tablet ketoconazole 2 % topical cream 1 applic topical DAILY rt arm rash 12/26/21 12/26/21 History linagliptin 5 mg tablet (Tradjenta) 5 mg PO DAILY 12/26/21 12/26/21 History Laboratory Tests 01/04/22 01/04/22 01/04/22 08:02 11:35 16:41 WBC RBC Hgb Hct MCV MCH MCHC RDW Plt Count MPV Sodium Potassium Chloride Carbon Dioxide Anion Gap BUN Creatinine Estim Creat Clear Calc Estimated GFR Glucose POC Capillary Glucose 159 mg/dl H mg/dl 198 mg/dl H mg/dl 155 mg/dl H mg/dl (65-105) (65-105) (65-105) Calcium 01/04/22 01/05/22 01/05/22 21:41 05:09 05:09 WBC 10.1 K/mm3 H K/mm3 (4.5-10.0) RBC 3.33 M/mm3 L M/mm3 (4.6-6.20) Hgb 9.8 g/dL L g/dL (14.0-18.0) Hct 31.4 % L % (42.0-52.0) MCV 94.3 fl fl (80-100) MCH 29.4 pg pg (26-34) MCHC 31.2 g/dl L g/dl (32-36) RDW 12.8 % % (11.5-14.5) Plt Count 254 k/mm3 k/mm3 (150-375) MPV 9.9 fl fl (7.4-10.4) Sodium 135 mmol/L L mmol/L (137-145) Potassium 3.7 mmol/L mmol/L (3.4-5.0) Chloride 99 mmol/L mmol/L (98-107) Carbon Dioxide 32 mmol/L H mmol/L (22-30) Anion Gap 4 mmol/L L mmol/L (8-16) BUN 22 mg/dL H mg/dL (9-20) Creatinine 1.60 mg/dL H mg/dL (0.7-1.3) Estim Creat Clear Calc 60 ml/min ml/min Estimated GFR 43 L (59 - ) Glucose 163 mg/dL H mg/dL (65-110) POC Capillary Glucose 277 mg/dl H mg/dl (65-105) Calcium 7.6 mg/dL L mg/dL (8.4-10.2) Patient hx anesthesia problems: none Family hx anesthesia problems: none Results Review: All pre-operative results and documents have been reviewed as part of the pre-operative evaluation. [facility] Past Medical History Medical History (Updated 01/05/22 @ 07:44 by Emerson Hartmann MD) URSULA (acute kidney injury) Anxiety Arthritis Atrial fib/flutter, transient Cellulitis of right upper extremity Charcot Acacia Tooth muscular atrophy COVID-19 Diabetes Essential hypertension Heartburn High cholesterol History of fracture of tibia Hypertension Hyponatremia Osteoarthriti
[2022-01-05 07:52] LABS: Glucose Point of Care 167 mg/dl (65-105)
[2022-01-05] MEDS: LACTATED RINGERS 1,000 ML 30 ML IV CONT (08:57)
[2022-01-05] MEDS: fentaNYL CITRATE INJ (*CRX) 100 MCG/2 ML VIAL 25 MCG IV PUSH ×12 (09:00→10:04)
[2022-01-05 09:15] LABS: Glucose Point of Care 164 mg/dl (65-105)
--- NOTE | 2022-01-05 09:46 | W.PM.PROC2 ---
Procedure Note - Detailed Date of Procedure 01/05/22 Pre-op Diagnosis Subcutaneous abscess of the right upper extremity Post-op Diagnosis Same Procedure Performed Second washout and dressing change and excisional debridement to the abscess of the right forearm, arm and axilla Surgeon Ronald Hooker MD [employer] [place] Anesthesia General Indications Postop day 2 incision and drainage of abscess of the right upper extremity Findings No purulence. Small areas of phlegmonous fascial tissue Description of Procedure The site was marked indicating the right upper extremity. He was rolled into the operating room. He was transferred to the operating table and placed supine and positioned. He was given IV sedation with an LMA. The right upper extremity was prepped and draped in usual fashion. No local anesthetic was used. No tourniquet was used. All the wounds were carefully searched beginning in the axilla and posterior arm and continuing to the forearm wound. All these were copiously irrigated with saline and the wound surfaces were debrided with Ray-Fide sponges. Several areas required excisional debridement of nonviable subcutaneous or fascial tissue. Little bleeding was encountered. Cauterization was not required. These wounds were then dressed with Mepilex Ag rope laid into the crevices. There were 5 such pieces and each is attached to a safety pin. Two of these were attached together and to the skin in the posterior arm. Kerlix sponges were applied to the larger wound surface areas and a bulky absorbent dressing was applied with the large drainage pack material. All of this was secured with a 4 in Kerlix roll and Medipore tape. The procedure was tolerated well. Estimated Blood Loss -20.0 Tourniquet Time 0 Urine Output 800 Drains No Packing Yes Pathology None sent Complications No immediate complications Condition Stable Disposition PACU
[2022-01-05] MEDS: MELOXICAM 7.5 MG TABLET 15 MG PO (11:35)
[2022-01-05] MEDS: FUROSEMIDE 20 MG TABLET PO ×2 (11:36→17:36)
[2022-01-05] MEDS: PANTOPRAZOLE SOD SESQUIHYDRATE 20 MG TAB PO (11:37)
[2022-01-05] MEDS: TAMSULOSIN HCL 0.4 MG CAPSULE PO (11:37)
[2022-01-05 11:39] LABS: Glucose Point of Care 188 mg/dl (65-105)
[2022-01-05] MEDS: INSULIN ASPART (*BKC) 100 UNITS/ML 6 UNITS SUB-Q ×2 (11:49→17:39)
--- NOTE | 2022-01-05 12:10 | PC.NURSE ---
Upon cleaning this patient's room while patient in surgery, this nurse found a clear bag containing pill bottles, a black watch, and perez bound in a rubber band. Medication bottles include metformin, gabapentin, amlodipine, levothyroxine, meloxicam, pantoprazole, tradjenta, amiodarone sitting on chair in room. Belongings placed in patients closet and locked. After patient returned from surgery, this nurse made patient aware of belongings found. With boarding house cook, patient's sister, and RN trainee present, patient's money counted in front of patient. This nurse counted 7-20 dollar bills, 11-10 dollar bills, 13-5 dollar bills, 13-1 dollar bills. Per patient with boarding house cook present, some of the money was given to his sister per patients request, leaving the patient with $45 in 5 dollar bills and $5 in 1 dollar bills for a total of $50. Perez bundled and placed into bag with medications and locked in patient's room. Watch placed on left wrist per patient's request. Patient continues to refuse Lovenox despite being educated on the risks involved with refusing Lovenox injections and the purpose of medications. Patient is alert and oriented. Will continue to educate.
[2022-01-05] MEDS: DOXYCYCLINE 100 MG/NS 100 ML 100 MG/100 ML BAG IVPB ×2 (13:12→23:05)
--- NOTE | 2022-01-05 15:34 | P.PNIM_ITS ---
Progress Note: A&P Assessment and Plan (1) Sepsis: Code(s): A41.9 - Sepsis, unspecified organism Status: Acute Assessment and Plan: Monitor I&Os, vital signs, neuro status and patient is a fall risk Monitor serum electrolytes, CBC, WBC, temperature curve and follow cultures Resuscitated with IV fluids admission IV Vancomycin, consult pharmacy to dose, send Vancomycin trough levels before 4th dose, Zosyn 3.375mg Q 6 hours. consitnue Azithromax. His arm does appears to be improving. Continue monitor clinical status. Pulses to the right upper extremity WNL, sensation still intact. Capillary refill appropriate. P.r.n. Tylenol, Zofran, and melatonin (2) Cellulitis of right upper extremity: Code(s): L03.113 - Cellulitis of right upper limb Status: Acute Assessment and Plan: Continue IV antibiotics cultures in progress supportive care Will get CT upper extremity to rule out any underlying drainable collections Leukocytosis improved on current regimen. Will continue same for now Will check ASO titer (3) Atrial fib/flutter, transient: Status: Acute Assessment and Plan: continue amiodarone Not on anticoagulation. Does not follow With any machinery erector. 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 Status: Acute Assessment and Plan: unchanged (5) Essential hypertension: Code(s): I10 - Essential (primary) hypertension Status: Acute Assessment and Plan: continue home meds (6) Type 2 diabetes mellitus: Qualifiers: Diabetes mellitus usp insulin use: without long term care pharmacist use Diabetes mellitus complication status: with neurologic complications Diabetes mellitus complication detail: with autonomic neuropathy Qualified Code(s): E11.43 - Type 2 diabetes mellitus with diabetic autonomic (poly)neuropathy Code(s): E11.9 - Type 2 diabetes mellitus without complications Status: Acute Assessment and Plan: insulin sliding scale as needed 1800 calorie carb consistent diet (7) URSULA (acute kidney injury): Code(s): N17.9 - Acute kidney failure, unspecified Status: Acute Assessment and Plan: likely secondary to sepsis receiving IV fluids repeat BMP in a.m. (8) Urinary retention: Code(s): R33.9 - Retention of urine, unspecified Status: Acute Assessment and Plan: patient may be experiencing urinary retention. bladder scan reported to be unremarkable however in her low PT resolved. He does report nocturia and frequency of urination Will check urinalysis and urine culture We will add Flomax as suspect he has underlying prostatic hypertrophy. (9) Hyponatremia: Code(s): E87.1 - Hypo-osmolality and hyponatremia Status: Acute Assessment and Plan: continue with fluid restriction, provide gentle IV fluid resusitation limit free water intake Improved Plan Morbid obesity Suspect underlying sleep apnea apnea will do apnea link test Conversational dyspnea no formal lung diagnosis reported. Will check echocardiogram does have history of atrial fibrillation but remains in sinus rhythm he is on chronic amiodarone therapy so lung toxicity related to chronic amiodarone therapy is possibility as well may need high-resolution CT scan to further evaluate his dyspnea. Will check his BNP as well as underlying congestive heart failure is suspected as well. Will give a dose of Lasix today for his lower extremity edema and overall hypervolemia and follow cl
[2022-01-05 17:00] LABS: Glucose Point of Care 184 mg/dl (65-105)
[2022-01-05] MEDS: AMIODARONE HCL 200 MG TABLET PO (17:37)
[2022-01-05] MEDS: amLODIPine BESYLATE 5 MG TABLET PO (23:06)
[2022-01-05] MEDS: INSULIN GLARGINE (*BKC) 100 UNITS/ML 15 UNITS SUB-Q (23:12)
[2022-01-05 23:59] LABS: Glucose Point of Care 230 mg/dl (65-105)
[2022-01-06] MEDS: MAGNES & ALUM HYD/SIMETH/DIPHENHYD/LIDOCAINE 119 ML MOUTHWASH BY MOUTH ×6 (01:45→20:07)
[2022-01-06 05:52] VITALS: BP 139/68; PULSE 80; RESP 18; TEMP 36.1; O2SAT 97
[2022-01-06] MEDS: HYDROmorphone HCL INJ (*CRX) 1 MG/ML SYR IV PUSH ×3 (06:00→21:54)
[2022-01-06] MEDS: LEVOTHYROXINE SODIUM 50 MCG TABLET PO (06:21)
[2022-01-06] MEDS: GABAPENTIN 100 MG CAPSULE PO ×3 (06:21→21:55)
[2022-01-06] MEDS: CENTRAL LINE FLUSH 10 ML IV PUSH ×3 (06:23→21:53)
[2022-01-06 06:47] LABS: Hematocrit 29.8 % (42.0-52.0); Hemoglobin 9.4 g/dL (14.0-18.0); Mean Corpuscular HGB Conc 31.5 g/dl (32-36); Mean Corpuscular Hemoglobin 29.7 pg (26-34); Mean Corpuscular Volume 94.3 fl (80-100); Mean Platelet Volume 9.8 fl (7.4-10.4); Platelet Count Result 229 k/mm3 (150-375); Red Blood Count 3.16 M/mm3 (4.6-6.20); Red Cell Distribution Width 12.9 % (11.5-14.5); White Blood Count 7.9 K/mm3 (4.5-10.0)
[2022-01-06 07:02] LABS: Anion Gap 4 mmol/L (8-16); Blood Urea Nitrogen 22 mg/dL (9-20); Calcium 7.4 mg/dL (8.4-10.2); Carbon Dioxide 34 mmol/L (22-30); Chloride 101 mmol/L (98-107); Estimated CRCL calculation 51 ml/min; Estimated Glomerular Filt Rate 35; Glucose 166 mg/dL (65-110); Potassium 3.8 mmol/L (3.4-5.0); Sodium 139 mmol/L (137-145)
[2022-01-06 07:32] LABS: Glucose Point of Care 168 mg/dl (65-105)
[2022-01-06] MEDS: INSULIN ASPART (*BKC) 100 UNITS/ML 6 UNITS SUB-Q ×3 (08:22→17:10)
[2022-01-06] MEDS: DOXYCYCLINE 100 MG/NS 100 ML 100 MG/100 ML BAG IVPB ×2 (08:23→20:07)
[2022-01-06] MEDS: TAMSULOSIN HCL 0.4 MG CAPSULE PO (08:23)
[2022-01-06] MEDS: PANTOPRAZOLE SOD SESQUIHYDRATE 20 MG TAB PO (08:24)
[2022-01-06] MEDS: MELOXICAM 7.5 MG TABLET 15 MG PO (08:24)
[2022-01-06] MEDS: FUROSEMIDE 20 MG TABLET PO ×2 (08:25→17:08)
[2022-01-06] MEDS: SODIUM CHLORIDE 0.9% IV 1,000 ML 100 ML IV CONT ×2 (08:25→19:24)
[2022-01-06 09:30] LABS: Anti Streptolysin O Screen <50 IU/mL (<200)
[2022-01-06] MEDS: LOPERAMIDE HCL 2 MG CAPSULE PO ×2 (10:19→18:19)
[2022-01-06 11:28] LABS: Glucose Point of Care 236 mg/dl (65-105)
[2022-01-06] MEDS: INSULIN ASPART (*BKC) 100 UNITS/ML SUB-Q (11:45)
--- NOTE | 2022-01-06 12:08 | PM.IMPN ---
Progress Note: A&P Assessment and Plan (1) Sepsis: Code(s): A41.9 - Sepsis, unspecified organism Status: Acute Assessment and Plan: Monitor I&Os, vital signs, neuro status and patient is a fall risk Monitor serum electrolytes, CBC, WBC, temperature curve and follow cultures Resuscitated with IV fluids admission IV Vancomycin, consult pharmacy to dose, send Vancomycin trough levels before 4th dose, Zosyn 3.375mg Q 6 hours. consitnue Azithromax. His arm does appears to be improving. Continue monitor clinical status. Pulses to the right upper extremity WNL, sensation still intact. Capillary refill appropriate. P.r.n. Tylenol, Zofran, and melatonin (2) Cellulitis of right upper extremity: Code(s): L03.113 - Cellulitis of right upper limb Status: Acute Assessment and Plan: Continue IV antibiotics cultures in progress supportive care Will get CT upper extremity to rule out any underlying drainable collections Leukocytosis improved on current regimen. Will continue same for now Will check ASO titer (3) Atrial fib/flutter, transient: Status: Acute Assessment and Plan: continue amiodarone Not on anticoagulation. Does not follow With any credit assistant. 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 Status: Acute Assessment and Plan: unchanged (5) Essential hypertension: Code(s): I10 - Essential (primary) hypertension Status: Acute Assessment and Plan: continue home meds (6) Type 2 diabetes mellitus: Qualifiers: Diabetes mellitus half-way insulin use: without local company intermodal truck driver use Diabetes mellitus complication status: with neurologic complications Diabetes mellitus complication detail: with autonomic neuropathy Qualified Code(s): E11.43 - Type 2 diabetes mellitus with diabetic autonomic (poly)neuropathy Code(s): E11.9 - Type 2 diabetes mellitus without complications Status: Acute Assessment and Plan: insulin sliding scale as needed 1800 calorie carb consistent diet (7) URSULA (acute kidney injury): Code(s): N17.9 - Acute kidney failure, unspecified Status: Acute Assessment and Plan: likely secondary to sepsis receiving IV fluids repeat BMP in a.m. (8) Urinary retention: Code(s): R33.9 - Retention of urine, unspecified Status: Acute Assessment and Plan: patient may be experiencing urinary retention. bladder scan reported to be unremarkable however in her low PT resolved. He does report nocturia and frequency of urination Will check urinalysis and urine culture We will add Flomax as suspect he has underlying prostatic hypertrophy. (9) Hyponatremia: Code(s): E87.1 - Hypo-osmolality and hyponatremia Status: Acute Assessment and Plan: continue with fluid restriction, provide gentle IV fluid resusitation limit free water intake Improved Plan Morbid obesity Suspect underlying sleep apnea apnea will do apnea link test Conversational dyspnea no formal lung diagnosis reported. Will check echocardiogram does have history of atrial fibrillation but remains in sinus rhythm he is on chronic amiodarone therapy so lung toxicity related to chronic amiodarone therapy is possibility as well may need high-resolution CT scan to further evaluate his dyspnea. Will check his BNP as well as underlying congestive heart failure is suspected as well. Will give a dose of Lasix today for his lower extremity edema and overall hypervolemia and follow clinical course. He is also quite positive since admission. Cumulative 14 L positive. Weight is up 6 kilos but has not been checked since past few days. Will put on weight every day. . # No lower extremity edema attributes to his amlodipine. With conversational dyspnea noted no prior diagnosis of COPD or any lung disease along with a nonsmoker/ never smoker
--- NOTE | 2022-01-06 13:00 | WPDPN ---
Progress Note: A&P Assessment and Plan (1) Abscess of right upper arm and forearm: Code(s): L02.413 - Cutaneous abscess of right upper limb Status: Acute Plan Agree with planning for discharge to SNF Agree with IV Doxy. I believe he should be returned to the OR for one more Dressing change under anesthesia. There are large flaps under which access will be difficult at bedside. Additional Plan Will schedule another dressing change under anesthesia. Subjective Date/time seen: 01/06/22 13:00 Interval history: Arm hurts posteriorly. Exam Narrative: Alert. Hopeful regarding discharge. MSSA per cx/sens. Now on IV Doxy. URSULA Creat up again to 1.9. Full use of hand and wrist. Objective Data Vital Signs Vital Signs: Vital Signs - 24 hr 01/05/22 13:30 01/05/22 17:37 01/05/22 20:00 Temperature 97.5 F L Pulse Rate 75 88 Respiratory Rate 20 Blood Pressure 133/69 Pulse Oximetry 93 Oxygen Delivery Room Air 01/06/22 05:52 01/06/22 08:20 Temperature 97.0 F L Pulse Rate 80 Respiratory Rate 18 Blood Pressure 139/68 Pulse Oximetry 97 Oxygen Delivery Room Air Intake/Output Intake/Output: Intake & Output 01/03/22 01/04/22 01/05/22 01/06/22 23:59 23:59 23:59 23:59 Intake Total 1190 2300 1220 100 Output Total 3900 1450 2000 400 Balance -6630 578 -780 -300 Meds/Results Medications: Active Medications Generic Name Dose Route Start Last Admin Trade Name Freq PRN Reason Stop Dose Admin Acetaminophen 1,000 mg 12/26/21 04:45 Acetaminophen 500 Mg Tablet PO Q6H PRN Mild Pain (1-3) or Fever Hydrocodone Bitart/Acetaminophen 1 tab 01/05/22 09:42 Hydrocodone/Acetaminophen (*Crx) 5-325 Mg Tablet PO Q6H PRN Pain Rated 4-6 Amiodarone HCl 200 mg 12/26/21 17:00 01/05/22 17:37 Amiodarone Hcl 200 Mg Tablet PO 200 mg DAILY@1700 NANCY Administration Amlodipine Besylate 5 mg 12/26/21 21:00 01/05/22 23:06 Amlodipine Besylate 5 Mg Tablet PO 5 mg HS NANCY Administration Benzocaine 1 lozenge 12/30/21 08:13 12/31/21 04:54 Benzocaine/Menthol (*Bkc) 18 Ea Lozenge PO 1 lozenge PRN PRN Administration Sore Throat Dextrose 12.5 gm 12/30/21 22:39 Dextrose 50% 25 Gm/50 Ml Syringe IV PUSH PRN PRN Hypoglycemia Protocol Docusate Sodium 100 mg 01/01/22 17:56 Docusate Sodium 100 Mg Capsule PO Q12H PRN Constipation Enoxaparin Sodium 40 mg 12/26/21 09:00 01/06/22 08:24 Enoxaparin 40 Mg/0.4 Ml Syringe SUB-Q Not Given DAILY NANCY Furosemide 20 mg 01/02/22 09:00 01/06/22 08:25 Furosemide 20 Mg Tablet PO 20 mg BID NANCY Administration Gabapentin 100 mg 12/26/21 06:00 01/06/22 06:21 Gabapentin 100 Mg Capsule PO 100 mg Q8HR NANCY Administration Glucagon 1 mg 12/30/21 22:39 Glucagon For Inj 1 Mg Vial IM PRN PRN Hypoglycemia Protocol Glucose 15 gm 12/30/21 22:39 Glucose Oral Gel 15 Gm Of Glucse In 37.5 Gm Tube PO PRN PRN Hypoglycemia Protocol Hydromorphone HCl 1 mg 01/05/22 09:42 01/06/22 06:00 Hydromorphone Hcl Inj (*Crx) 1 Mg/Ml Syr IV PUSH 1 mg Q3H PRN Administration Pain Rated 7-10 Dextrose 1,000 mls @ 100 mls/hr 12/30/21 22:39 Dextrose 5% 1,000 Ml IVPB PRN PRN Hypoglycemia Protocol Doxycycline Hyclate 100 mg in 100 mls @ 100 mls/hr 01/05/22 10:00 01/06/22 08:23 Vibramycin 100 Mg/Ns 100 Ml IVPB 100 mls/hr Q12HR NANCY Administration Sodium Chloride 1,000 mls @ 100 mls/hr 01/06/22 07:55 01/06/22 08:25 Normal Saline Iv IV CONT 100 mls/hr .Q10H NANCY Administration Insulin Aspart 3 - 6 units 12/31/21 08:00 01/06/22 11:45 Insulin Aspart (*Bkc) 100 Units/Ml SUB-Q 3 units TIDWM NANCY Administration Protocol Insulin Aspart 6 units 01/01/22 08:00 01/06/22 11:46 Insulin Aspart (*Bkc) 100 Units/Ml SUB-Q 6 units TIDWM NANCY Administration Insulin Glargine
--- NOTE | 2022-01-06 13:43 | WPDANESPN ---
Anes - Prog Note Post-Op Date/Time: 01/06/22 13:43 Cardiovascular status: normal Respiratory status: normal Airway patency: baseline Mental status: baseline Post-Op hydration status: normal Vital Signs: Last Vital Signs Temp 36.1 C L 01/06/22 05:52 Pulse 80 01/06/22 05:52 Resp 18 01/06/22 05:52 BP 139/68 01/06/22 05:52 Pulse Ox 97 01/06/22 05:52 O2 Del Method Room Air 01/06/22 08:20 O2 Flow Rate 2 01/05/22 10:15 Pain Score (VAS): 0 I/O: Intake & Output 01/05/22 01/06/22 01/06/22 23:59 07:59 15:59 Intake Total 680 100 240 Output Total 400 300 100 Balance 280 -200 140 Laboratory Tests 01/06/22 06:35 01/06/22 06:35 12/31/21 01/05/22 01/05/22 18:45 16:32 23:03 WBC RBC Hgb Hct MCV MCH MCHC RDW Plt Count MPV Sodium Potassium Chloride Carbon Dioxide Anion Gap BUN Creatinine Estim Creat Clear Calc Estimated GFR Glucose POC Capillary Glucose 184 H 230 H Calcium Anti-Streptolysin Scrn <50 01/06/22 01/06/22 01/06/22 06:35 06:35 07:28 WBC 7.9 RBC 3.16 L Hgb 9.4 L Hct 29.8 L MCV 94.3 MCH 29.7 MCHC 31.5 L RDW 12.9 Plt Count 229 MPV 9.8 Sodium 139 Potassium 3.8 Chloride 101 Carbon Dioxide 34 H Anion Gap 4 L BUN 22 H Creatinine 1.90 H Estim Creat Clear Calc 51 Estimated GFR 35 L Glucose 166 H POC Capillary Glucose 168 H Calcium 7.4 L Anti-Streptolysin Scrn 01/06/22 11:25 WBC RBC Hgb Hct MCV MCH MCHC RDW Plt Count MPV Sodium Potassium Chloride Carbon Dioxide Anion Gap BUN Creatinine Estim Creat Clear Calc Estimated GFR Glucose POC Capillary Glucose 236 H Calcium Anti-Streptolysin Scrn Microbiology 01/02/22 09:58 Abscess Wound Culture - Final Staphylococcus aureus Post-procedural complaints: none Patient Feedback: Patient satisfied with anesthetic care.
[2022-01-06 14:00] VITALS: BP 134/72; PULSE 67; RESP 18; TEMP 36.1; O2SAT 96
[2022-01-06 16:35] LABS: Glucose Point of Care 188 mg/dl (65-105)
[2022-01-06 17:08] VITALS: PULSE 80
[2022-01-06] MEDS: AMIODARONE HCL 200 MG TABLET PO (17:08)
[2022-01-06] MEDS: HYDROcodone/acetaminophen (*CRX) 5-325 MG TABLET 1 TAB PO (17:12)
[2022-01-06] MEDS: amLODIPine BESYLATE 5 MG TABLET PO (20:07)
[2022-01-06] MEDS: INSULIN GLARGINE (*BKC) 100 UNITS/ML 15 UNITS SUB-Q (20:20)
[2022-01-06 20:29] LABS: Glucose Point of Care 191 mg/dl (65-105)
[2022-01-06 21:33] VITALS: BP 140/70; PULSE 67; RESP 18; TEMP 36.6; O2SAT 96
[2022-01-07] MEDS: MAGNES & ALUM HYD/SIMETH/DIPHENHYD/LIDOCAINE 119 ML MOUTHWASH BY MOUTH ×6 (00:55→21:04)
[2022-01-07] MEDS: HYDROmorphone HCL INJ (*CRX) 1 MG/ML SYR IV PUSH ×5 (02:53→21:02)
--- NOTE | 2022-01-07 04:58 | PC.NURSE ---
Spoke with patient regarding PT and OT. Pt stated he initially refused working with the occupational therapist because I do not think I will have a job or occupation anytime soon . Patient was educated on what occupational therapy entails and that is not therapy to help him with getting a job/occupation, but it is therapy targeting activities of daily living. Patient is willing to work with PT and oT at this time after education.
[2022-01-07 05:34] VITALS: BP 153/84; PULSE 64; RESP 18; TEMP 37.1; O2SAT 98
[2022-01-07] MEDS: GABAPENTIN 100 MG CAPSULE PO ×2 (05:42→14:29)
[2022-01-07] MEDS: CENTRAL LINE FLUSH 10 ML IV PUSH ×3 (05:42→21:47)
[2022-01-07] MEDS: SODIUM CHLORIDE 0.9% IV 1,000 ML 100 ML IV CONT ×2 (06:05→16:33)
[2022-01-07 06:34] LABS: Anion Gap 4 mmol/L (8-16); Blood Urea Nitrogen 19 mg/dL (9-20); Calcium 7.4 mg/dL (8.4-10.2); Carbon Dioxide 32 mmol/L (22-30); Chloride 102 mmol/L (98-107); Estimated CRCL calculation 56 ml/min; Estimated Glomerular Filt Rate 40; Glucose 146 mg/dL (65-110); Potassium 3.7 mmol/L (3.4-5.0); Sodium 138 mmol/L (137-145)
[2022-01-07 06:34] LABS: Hematocrit 29.1 % (42.0-52.0); Mean Corpuscular HGB Conc 30.9 g/dl (32-36); Mean Corpuscular Hemoglobin 29.6 pg (26-34); Mean Corpuscular Volume 95.7 fl (80-100); Mean Platelet Volume 9.7 fl (7.4-10.4); Platelet Count Result 210 k/mm3 (150-375); Red Blood Count 3.04 M/mm3 (4.6-6.20); Red Cell Distribution Width 12.8 % (11.5-14.5); White Blood Count 7.4 K/mm3 (4.5-10.0)
[2022-01-07 07:38] LABS: Glucose Point of Care 150 mg/dl (65-105)
[2022-01-07] MEDS: INSULIN ASPART (*BKC) 100 UNITS/ML 6 UNITS SUB-Q ×3 (08:13→16:58)
[2022-01-07] MEDS: DOXYCYCLINE 100 MG/NS 100 ML 100 MG/100 ML BAG IVPB ×2 (08:14→21:03)
[2022-01-07] MEDS: PANTOPRAZOLE SOD SESQUIHYDRATE 20 MG TAB PO (08:14)
[2022-01-07] MEDS: TAMSULOSIN HCL 0.4 MG CAPSULE PO (08:15)
[2022-01-07] MEDS: FUROSEMIDE 20 MG TABLET PO ×2 (08:15→16:34)
[2022-01-07] MEDS: MELOXICAM 7.5 MG TABLET 15 MG PO (08:15)
[2022-01-07 09:09] VITALS: PULSE 71; O2SAT 97
[2022-01-07] MEDS: LOPERAMIDE HCL 2 MG CAPSULE PO (09:33)
[2022-01-07 11:19] LABS: Glucose Point of Care 206 mg/dl (65-105)
[2022-01-07] MEDS: INSULIN ASPART (*BKC) 100 UNITS/ML SUB-Q ×2 (12:08→16:58)
--- NOTE | 2022-01-07 12:19 | WPDPN ---
Progress Note: A&P Assessment and Plan (1) Abscess of right upper arm and forearm: Code(s): L02.413 - Cutaneous abscess of right upper limb Status: Acute Assessment and Plan: Progressing will. Plan to redress wounds under anesthesia tomorrow around 1100. Would be ok for discharge to SNF from my stand point. Will try to arrange dressing plan that could be continued without the use of general anesthesia. I would like to see the [facility] 2 weeks to determine any need for additional surgery such as wound closure. Subjective Date/time seen: 01/07/22 12:19 Exam Narrative: Alert and cooperative. In bed AFVSS. Renal function beginning to improve. Serum glucose and POC numbers improving. Bandage partially saturated with dark serum. Able to move all joints from fingers to shoulder without restriction or pain. Objective Data Vital Signs Vital Signs: Vital Signs - 24 hr 01/06/22 14:00 01/06/22 17:08 01/06/22 21:33 Temperature 97.0 F L 97.9 F Pulse Rate 67 80 67 Respiratory Rate 18 18 Blood Pressure 134/72 140/70 Pulse Oximetry 96 96 Oxygen Delivery 01/06/22 20:00 01/07/22 05:34 01/07/22 08:00 Temperature 98.7 F Pulse Rate 64 Respiratory Rate 18 Blood Pressure 153/84 H Pulse Oximetry 98 Oxygen Delivery Room Air Room Air Intake/Output Intake/Output: Intake & Output 01/04/22 01/05/22 01/06/22 01/07/22 23:59 23:59 23:59 23:59 Intake Total 2300 1220 1780 1802 Output Total 1450 2000 400 1400 Balance 850 -780 1380 402 Meds/Results Medications: Active Medications Generic Name Dose Route Start Last Admin Trade Name Freq PRN Reason Stop Dose Admin Acetaminophen 1,000 mg 12/26/21 04:45 Acetaminophen 500 Mg Tablet PO Q6H PRN Mild Pain (1-3) or Fever Hydrocodone Bitart/Acetaminophen 1 tab 01/05/22 09:42 01/06/22 17:12 Hydrocodone/Acetaminophen (*Crx) 5-325 Mg Tablet PO 1 tab Q6H PRN Administration Pain Rated 4-6 Amiodarone HCl 200 mg 12/26/21 17:00 01/06/22 17:08 Amiodarone Hcl 200 Mg Tablet PO 200 mg DAILY@1700 NANCY Administration Amlodipine Besylate 5 mg 12/26/21 21:00 01/06/22 20:07 Amlodipine Besylate 5 Mg Tablet PO 5 mg HS NANCY Administration Benzocaine 1 lozenge 12/30/21 08:13 12/31/21 04:54 Benzocaine/Menthol (*Bkc) 18 Ea Lozenge PO 1 lozenge PRN PRN Administration Sore Throat Dextrose 12.5 gm 12/30/21 22:39 Dextrose 50% 25 Gm/50 Ml Syringe IV PUSH PRN PRN Hypoglycemia Protocol Docusate Sodium 100 mg 01/01/22 17:56 Docusate Sodium 100 Mg Capsule PO Q12H PRN Constipation Enoxaparin Sodium 40 mg 12/26/21 09:00 01/07/22 09:43 Enoxaparin 40 Mg/0.4 Ml Syringe SUB-Q Not Given DAILY NANCY Furosemide 20 mg 01/02/22 09:00 01/07/22 08:15 Furosemide 20 Mg Tablet PO 20 mg BID NANCY Administration Gabapentin 100 mg 12/26/21 06:00 01/07/22 05:42 Gabapentin 100 Mg Capsule PO 100 mg Q8HR NANCY Administration Glucagon 1 mg 12/30/21 22:39 Glucagon For Inj 1 Mg Vial IM PRN PRN Hypoglycemia Protocol Glucose 15 gm 12/30/21 22:39 Glucose Oral Gel 15 Gm Of Glucse In 37.5 Gm Tube PO PRN PRN Hypoglycemia Protocol Hydromorphone HCl 1 mg 01/05/22 09:42 01/07/22 05:53 Hydromorphone Hcl Inj (*Crx) 1 Mg/Ml Syr IV PUSH 1 mg Q3H PRN Administration Pain Rated 7-10 Dextrose 1,000 mls @ 100 mls/hr 12/30/21 22:39 Dextrose 5% 1,000 Ml IVPB PRN PRN Hypoglycemia Protocol Doxycycline Hyclate 100 mg in 100 mls @ 100 mls/hr 01/05/22 10:00 01/07/22 08:14 Vibramycin 100 Mg/Ns 100 Ml IVPB 100 mls/hr Q12HR NANCY Administration Sodium Chloride 1,000 mls @ 100 mls/hr 01/06/22 07:55 01/07/22 06:05 Normal Saline Iv IV CONT 100 mls/hr .Q10H NANCY Administration Insulin Aspart 3 - 6 units 08/02/22 08:00 01/07/22 12:08 Insulin Aspart (*Bkc
--- NOTE | 2022-01-07 13:17 | PM.IMPN ---
Progress Note: A&P Assessment and Plan (1) Sepsis: Code(s): A41.9 - Sepsis, unspecified organism Status: Acute Assessment and Plan: Monitor I&Os, vital signs, neuro status and patient is a fall risk Monitor serum electrolytes, CBC, WBC, temperature curve and follow cultures Resuscitated with IV fluids admission IV Vancomycin, consult pharmacy to dose, send Vancomycin trough levels before 4th dose, Zosyn 3.375mg Q 6 hours. consitnue Azithromax. His arm does appears to be improving. Continue monitor clinical status. Pulses to the right upper extremity WNL, sensation still intact. Capillary refill appropriate. P.r.n. Tylenol, Zofran, and melatonin (2) Cellulitis of right upper extremity: Code(s): L03.113 - Cellulitis of right upper limb Status: Acute Assessment and Plan: Continue IV antibiotics cultures in progress supportive care Will get CT upper extremity to rule out any underlying drainable collections Leukocytosis improved on current regimen. Will continue same for now Will check ASO titer (3) Atrial fib/flutter, transient: Status: Acute Assessment and Plan: continue amiodarone Not on anticoagulation. 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 Status: Acute Assessment and Plan: unchanged (5) Essential hypertension: Code(s): I10 - Essential (primary) hypertension Status: Acute Assessment and Plan: continue home meds (6) Type 2 diabetes mellitus: Qualifiers: Diabetes mellitus shelter insulin use: without health service coordinator use Diabetes mellitus complication status: with neurologic complications Diabetes mellitus complication detail: with autonomic neuropathy Qualified Code(s): E11.43 - Type 2 diabetes mellitus with diabetic autonomic (poly)neuropathy Code(s): E11.9 - Type 2 diabetes mellitus without complications Status: Acute Assessment and Plan: insulin sliding scale as needed 1800 calorie carb consistent diet (7) URSULA (acute kidney injury): Code(s): N17.9 - Acute kidney failure, unspecified Status: Acute Assessment and Plan: likely secondary to sepsis receiving IV fluids repeat BMP in a.m. (8) Urinary retention: Code(s): R33.9 - Retention of urine, unspecified Status: Acute Assessment and Plan: patient may be experiencing urinary retention. bladder scan reported to be unremarkable however in her low PT resolved. He does report nocturia and frequency of urination Will check urinalysis and urine culture We will add Flomax as suspect he has underlying prostatic hypertrophy. (9) Hyponatremia: Code(s): E87.1 - Hypo-osmolality and hyponatremia Status: Acute Assessment and Plan: continue with fluid restriction, provide gentle IV fluid resusitation limit free water intake Improved Plan Morbid obesity Suspect underlying sleep apnea apnea will do apnea link test Conversational dyspnea no formal lung diagnosis reported. Will check echocardiogram does have history of atrial fibrillation but remains in sinus rhythm he is on chronic amiodarone therapy so lung toxicity related to chronic amiodarone therapy is possibility as well may need high-resolution CT scan to further evaluate his dyspnea. Will check his BNP as well as underlying congestive heart failure is suspected as well. Will give a dose of Lasix today for his lower extremity edema and overall hypervolemia and follow clinical course. He is also quite positive since admission. Cumulative 14 L positive. Weight is up 6 kilos but has not been checked since past few days. Will put on weight every day. . # No lower extremity edema attributes to his amlodipine. With conversational dyspnea noted no prior diagnosis of COPD or any lung disease along with a nonsmoker/ never smoker
[2022-01-07 14:00] VITALS: BP 138/78; PULSE 70; RESP 18; TEMP 35.8; O2SAT 98
[2022-01-07 16:17] LABS: Glucose Point of Care 204 mg/dl (65-105)
[2022-01-07 16:35] VITALS: PULSE 68
[2022-01-07] MEDS: AMIODARONE HCL 200 MG TABLET PO (16:35)
[2022-01-07] MEDS: amLODIPine BESYLATE 5 MG TABLET PO (21:00)
[2022-01-07 21:48] VITALS: O2SAT 97
[2022-01-07] MEDS: INSULIN GLARGINE (*BKC) 100 UNITS/ML 15 UNITS SUB-Q (21:49)
[2022-01-07 23:47] LABS: Glucose Point of Care 160 mg/dl (65-105)
[2022-01-08] VITALS (9 sets, daily range): BP systolic 118–165; BP diastolic 65–98; PULSE 62–76; RESP 12–18; TEMP 36.1–37.1; O2SAT 94–99
[2022-01-08] MEDS: HYDROmorphone HCL INJ (*CRX) 1 MG/ML SYR IV PUSH ×3 (02:06→20:51)
--- NOTE | 2022-01-08 03:11 | PC.NURSE ---
Patient woke up at 0130 panicking and crying due to waking and finding his water had been taken from the room while he was sleeping due to his NPO status that began at 0000. Patient expressed anxiety felt having not being woken up before water was taken from the room. Patient was found chewing grapes and spitting them out that had been mistakenly left at the bedside so he could get the water he deserved to have . Patient was educated on need to remain NPO prior to procedure scheduled for 1100.
[2022-01-08] MEDS: SODIUM CHLORIDE 0.9% IV 1,000 ML 100 ML IV CONT ×2 (04:22→13:58)
[2022-01-08] MEDS: CENTRAL LINE FLUSH 10 ML IV PUSH ×3 (05:12→20:53)
[2022-01-08 05:42] LABS: Hematocrit 31.3 % (42.0-52.0); Hemoglobin 9.8 g/dL (14.0-18.0); Mean Corpuscular HGB Conc 31.3 g/dl (32-36); Mean Corpuscular Hemoglobin 29.6 pg (26-34); Mean Corpuscular Volume 94.6 fl (80-100); Mean Platelet Volume 9.5 fl (7.4-10.4); Platelet Count Result 237 k/mm3 (150-375); Red Blood Count 3.31 M/mm3 (4.6-6.20); Red Cell Distribution Width 12.9 % (11.5-14.5); White Blood Count 8.4 K/mm3 (4.5-10.0)
[2022-01-08 05:53] LABS: Anion Gap 4 mmol/L (8-16); Blood Urea Nitrogen 19 mg/dL (9-20); Carbon Dioxide 31 mmol/L (22-30); Chloride 102 mmol/L (98-107); Estimated CRCL calculation 57 ml/min; Estimated Glomerular Filt Rate 40; Glucose 146 mg/dL (65-110); Potassium 3.7 mmol/L (3.4-5.0); Sodium 137 mmol/L (137-145)
[2022-01-08] MEDS: LEVOTHYROXINE SODIUM 50 MCG TABLET PO (06:59)
[2022-01-08] MEDS: GABAPENTIN 100 MG CAPSULE PO ×3 (07:05→20:53)
[2022-01-08 07:32] LABS: Glucose Point of Care 143 mg/dl (65-105)
[2022-01-08 07:51] LABS: Glucose Point of Care 127 mg/dl (65-105)
[2022-01-08] MEDS: LACTATED RINGERS 1,000 ML 30 ML IV CONT (08:10)
--- NOTE | 2022-01-08 08:21 | WPDHPUPDATE1 ---
History and Physical Update Update Date/Time: 01/08/22 08:21 History and Physical has been reviewed, including an updated exam of the patient. There are NO changes in the patient's condition. Risks, benefits, and alternatives have been discussed and questions answered. Patient agrees to proceed with procedure.
--- NOTE | 2022-01-08 09:02 | PC.NURSE ---
pt transferred to surgery via bed
--- NOTE | 2022-01-08 09:32 | WPDANESEPPF ---
Anes - Initial Pre Proc Eval Procedure: Operation Date: 01/03/22 14:00 Proposed Procedures p Drainage Abscess Right Arm and Forearm - Ronald Hooker MD Operation Date: 01/05/22 07:30 Proposed Procedures p I&D Debride Upper Extremity Arm(Right) - Ronald Hooker MD Operation Date: 01/08/22 10:30 Proposed Procedures p Dressing Change To Right Arm Under Anesthesia - Ronald Hooker MD Date/Time: 01/08/22 09:32 Surgeon: Francisco J Shah MD Pre Op Diagnosis: cellulitis Patient Data Age: 66 Gender: M Height: 1.85 m Weight: 146.6 kg Last Vital Signs Temp 37.1 C 01/08/22 08:27 Pulse 65 01/08/22 08:27 Resp 18 01/08/22 08:27 BP 165/85 H 01/08/22 08:27 Pulse Ox 99 01/08/22 08:27 O2 Del Method Room Air 01/07/22 21:48 O2 Flow Rate 2 01/05/22 10:15 Allergies Allergy/AdvReac Type Severity Reaction Status Date / Time No Known Allergies Allergy Verified 01/03/22 14:01 Home Medications Medication Instructions Recorded Confirmed Type levothyroxine 50 mcg capsule 50 mcg PO DAILY 04/23/21 12/26/21 History amlodipine 5 mg tablet 5 mg PO DAILY #30 tabs 09/26/21 12/26/21 Rx gabapentin 100 mg capsule 100 mg PO Q8H #90 caps 09/26/21 12/26/21 Rx meloxicam 15 mg tablet 15 mg PO DAILY #30 tabs 09/26/21 12/26/21 Rx pantoprazole 20 mg tablet,delayed 20 mg PO QAM #90 tabs 10/03/21 12/26/21 Rx release metformin 500 mg tablet 500 mg PO DAILY #90 tabs 10/29/21 12/26/21 Rx amiodarone 200 mg tablet 200 mg PO DAILY #30 tabs 11/27/21 12/26/21 Rx hydrocodone 10 mg-acetaminophen 1 tablet PO Q6H PRN pain #120 tabs 12/04/21 12/26/21 Rx 325 mg tablet ketoconazole 2 % topical cream 1 applic topical DAILY rt arm rash 07/28/22 07/28/22 History linagliptin 5 mg tablet (Tradjenta) 5 mg PO DAILY 12/26/21 12/26/21 History Laboratory Tests 01/07/22 01/07/22 01/07/22 11:15 16:13 21:46 WBC RBC Hgb Hct MCV MCH MCHC RDW Plt Count MPV Sodium Potassium Chloride Carbon Dioxide Anion Gap BUN Creatinine Estim Creat Clear Calc Estimated GFR Glucose POC Capillary Glucose 206 mg/dl H mg/dl 204 mg/dl H mg/dl 160 mg/dl H mg/dl (65-105) (65-105) (65-105) Calcium 01/08/22 01/08/22 01/08/22 05:22 05:22 07:25 WBC 8.4 K/mm3 K/mm3 (4.5-10.0) RBC 3.31 M/mm3 L M/mm3 (4.6-6.20) Hgb 9.8 g/dL L g/dL (14.0-18.0) Hct 31.3 % L % (42.0-52.0) MCV 94.6 fl fl (80-100) MCH 29.6 pg pg (26-34) MCHC 31.3 g/dl L g/dl (32-36) RDW 12.9 % % (11.5-14.5) Plt Count 237 k/mm3 k/mm3 (150-375) MPV 9.5 fl fl (7.4-10.4) Sodium 137 mmol/L mmol/L (137-145) Potassium 3.7 mmol/L mmol/L (3.4-5.0) Chloride 102 mmol/L mmol/L (98-107) Carbon Dioxide 31 mmol/L H mmol/L (22-30) Anion Gap 4 mmol/L L mmol/L (8-16) BUN 19 mg/dL mg/dL (9-20) Creatinine 1.70 mg/dL H mg/dL (0.7-1.3) Estim Creat Clear Calc 57 ml/min ml/min Estimated GFR 40 L (59 - ) Glucose 146 mg/dL H mg/dL (65-110) POC Capillary Glucose 143 mg/dl H mg/dl (65-105) Calcium 8.0 mg/dL L mg/dL (8.4-10.2) 01/08/22 07:40 WBC RBC Hgb Hct MCV MCH MCHC RDW Plt Count MPV Sodium Potassium Chloride Carbon Dioxide Anion Gap BUN Creatinine Estim Creat Clear Calc Estimated GFR Glucose POC Capillary Glucose 127 mg/dl H mg/dl (65-105) Calcium Patient hx anesthesia problems: none Family hx anesthesia problems: none Results R
[2022-01-08] MEDS: DOXYCYCLINE 100 MG/NS 100 ML 100 MG/100 ML BAG IVPB ×2 (09:50→21:18)
--- NOTE | 2022-01-08 11:04 | P.OP_ITS ---
Procedure Note - Detailed Date of Procedure 01/08/22 Pre-op Diagnosis Abscess of right forearm, arm and axilla Post-op Diagnosis Same Procedure Performed Dressing change under anesthesia to the wounds of the right forearm, arm and axilla Surgeon Ronald Hooker MD Spanish Instructor Casi S Anesthesia General Description of Procedure The right upper extremity was marked with the patient's cooperation in the holding area. He was taken to the operating room where he was transferred to the operating table and placed supine. Was given general anesthesia and the right upper extremity was prepped and draped in usual fashion. The purpose of this procedure is to examine the entire wound for additional pus or necrotic tissue and to provide a dressing that could be replicated by someone in the [place] [facility] facility after his discharge. All dressings were removed. All the wound crevices and spaces were evaluated for necrotic tissue or pus. Most areas were showing signs of healing with coaptation of adjacent wound margins. Granulation tissue is beginning to develop in all areas. The wounds were dressed with silver impregnated sponges or rope. The Mepilex Ag sponges were placed and the forearm and elbow wounds. These were covered with either Kerlix sponges and ABD or a major drainage pad. The sites were wrapped with Kerlix and Coban. A similar dressing was applied on the arm. The more proximal wound extending from the proximal arm into the axilla was dressed with silver impregnated alginate rope. This will allow continuation of drainage in the most dependent aspect. Segments of this area were wrapped separately to allow for pre dressing as needed and to try to she was stable dressing. Estimated Blood Loss -20.0 Tourniquet Time 0 Urine Output 300 Drains No Packing Yes Pathology None sent Complications No immediate complications Condition Stable Disposition PACU
[2022-01-08 11:10] LABS: Glucose Point of Care 135 mg/dl (65-105)
[2022-01-08] MEDS: fentaNYL CITRATE INJ (*CRX) 100 MCG/2 ML VIAL 25 MCG IV PUSH ×3 (11:24→11:56)
--- NOTE | 2022-01-08 12:25 | PC.NURSE ---
pt returned from surgery via bed, repositioned for comfort, reviewed plan of care, sister at bedside
--- NOTE | 2022-01-08 13:14 | PC.NURSE ---
waiting for lunch tray to administer meds
--- NOTE | 2022-01-08 13:17 | PM.IMPN ---
Progress Note: A&P Assessment and Plan (1) Sepsis: Code(s): A41.9 - Sepsis, unspecified organism Status: Acute Assessment and Plan: Present on admission. (2) Cellulitis of right upper extremity: Code(s): L03.113 - Cellulitis of right upper limb Status: Acute Assessment and Plan: Plan for debridement. continue IV antibiotics await cultures (3) Atrial fib/flutter, transient: Status: Acute Assessment and Plan: continue amiodarone Not on anticoagulation. Does not follow With any title attorney. 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 Status: Acute Assessment and Plan: unchanged (5) Essential hypertension: Code(s): I10 - Essential (primary) hypertension Status: Acute Assessment and Plan: continue home meds (6) Type 2 diabetes mellitus: Qualifiers: Diabetes mellitus long term care phlebotomist insulin use: without long term care phlebotomist use Diabetes mellitus complication status: with neurologic complications Diabetes mellitus complication detail: with autonomic neuropathy Qualified Code(s): E11.43 - Type 2 diabetes mellitus with diabetic autonomic (poly)neuropathy Code(s): E11.9 - Type 2 diabetes mellitus without complications Status: Acute Assessment and Plan: insulin sliding scale as needed 1800 calorie carb consistent diet (7) URSULA (acute kidney injury): Code(s): N17.9 - Acute kidney failure, unspecified Status: Acute Assessment and Plan: likely secondary to sepsis receiving IV fluids repeat BMP in a.m. (8) Urinary retention: Code(s): R33.9 - Retention of urine, unspecified Status: Acute Assessment and Plan: patient may be experiencing urinary retention. bladder scan reported to be unremarkable however in her low PT resolved. He does report nocturia and frequency of urination Will check urinalysis and urine culture We will add Flomax as suspect he has underlying prostatic hypertrophy. (9) Hyponatremia: Code(s): E87.1 - Hypo-osmolality and hyponatremia Status: Acute Assessment and Plan: continue with fluid restriction, provide gentle IV fluid resusitation limit free water intake Improved Plan Morbid obesity Suspect underlying sleep apnea apnea will do apnea link test Conversational dyspnea no formal lung diagnosis reported. Will check echocardiogram does have history of atrial fibrillation but remains in sinus rhythm he is on chronic amiodarone therapy so lung toxicity related to chronic amiodarone therapy is possibility as well may need high-resolution CT scan to further evaluate his dyspnea. Will check his BNP as well as underlying congestive heart failure is suspected as well. Will give a dose of Lasix today for his lower extremity edema and overall hypervolemia and follow clinical course. He is also quite positive since admission. Cumulative 14 L positive. Weight is up 6 kilos but has not been checked since past few days. Will put on weight every day. . # No lower extremity edema attributes to his amlodipine. With conversational dyspnea noted no prior diagnosis of COPD or any lung disease along with a nonsmoker/ never smoker status. Suspect congestive heart failure. Check echo BNP diuresis except as delineated above. 01/01/2022 interval history 66-year-old male admitted with right upper extremity cellulitis patient blood culture is negative for any bacterial growth there was no drainage from the wound and wound cultures collected, patient has some fears her erythematosus and edema to upper extremity DVT was negative, patient is being treated with Zosyn and vancomycin right upper extremity cellulitis discussed with ID pharmacy recommended to continue the present management as patient is white counts are trending down once reached close to normal will switch over to patient to oral anti
[2022-01-08] MEDS: TAMSULOSIN HCL 0.4 MG CAPSULE PO (13:55)
[2022-01-08] MEDS: MELOXICAM 7.5 MG TABLET 15 MG PO (13:56)
[2022-01-08] MEDS: FUROSEMIDE 20 MG TABLET PO ×2 (13:56→17:06)
[2022-01-08] MEDS: MAGNES & ALUM HYD/SIMETH/DIPHENHYD/LIDOCAINE 119 ML MOUTHWASH BY MOUTH ×3 (13:57→20:53)
[2022-01-08] MEDS: PANTOPRAZOLE SOD SESQUIHYDRATE 20 MG TAB PO (13:57)
[2022-01-08 16:25] LABS: Glucose Point of Care 245 mg/dl (65-105)
[2022-01-08] MEDS: INSULIN ASPART (*BKC) 100 UNITS/ML 6 UNITS SUB-Q (17:03)
[2022-01-08] MEDS: INSULIN ASPART (*BKC) 100 UNITS/ML SUB-Q (17:04)
[2022-01-08] MEDS: AMIODARONE HCL 200 MG TABLET PO (17:07)
[2022-01-08] MEDS: LOPERAMIDE HCL 2 MG CAPSULE PO (17:16)
[2022-01-08 20:14] LABS: Glucose Point of Care 177 mg/dl (65-105)
[2022-01-08] MEDS: INSULIN GLARGINE (*BKC) 100 UNITS/ML 15 UNITS SUB-Q (20:50)
[2022-01-08] MEDS: amLODIPine BESYLATE 5 MG TABLET PO (20:53)
[2022-01-09] MEDS: HYDROmorphone HCL INJ (*CRX) 1 MG/ML SYR IV PUSH ×3 (00:44→20:35)
[2022-01-09] MEDS: MAGNES & ALUM HYD/SIMETH/DIPHENHYD/LIDOCAINE 119 ML MOUTHWASH BY MOUTH ×6 (00:51→20:31)
[2022-01-09 05:00] VITALS: BP 158/111; PULSE 64; RESP 16; TEMP 36.1; O2SAT 98
[2022-01-09] MEDS: LEVOTHYROXINE SODIUM 50 MCG TABLET PO (05:48)
[2022-01-09] MEDS: GABAPENTIN 100 MG CAPSULE PO ×3 (05:48→20:57)
[2022-01-09] MEDS: CENTRAL LINE FLUSH 10 ML IV PUSH ×3 (05:48→20:58)
[2022-01-09 06:23] LABS: Anion Gap 6 mmol/L (8-16); Blood Urea Nitrogen 19 mg/dL (9-20); Carbon Dioxide 32 mmol/L (22-30); Chloride 100 mmol/L (98-107); Estimated CRCL calculation 54 ml/min; Estimated Glomerular Filt Rate 38; Glucose 138 mg/dL (65-110); Potassium 3.7 mmol/L (3.4-5.0); Sodium 138 mmol/L (137-145)
--- NOTE | 2022-01-09 06:28 | PC.NURSE ---
Pt allowed to exceed daily shift limit of 440ml of fluids due to not consuming the full allotted amount from previous shift. Pt had a total of 600 mls of water at end of current shift 0629.
[2022-01-09 07:46] LABS: Glucose Point of Care 129 mg/dl (65-105)
[2022-01-09] MEDS: INSULIN ASPART (*BKC) 100 UNITS/ML 6 UNITS SUB-Q ×3 (07:59→16:52)
[2022-01-09 08:00] VITALS: PULSE 64; RESP 16; O2SAT 98
[2022-01-09] MEDS: PANTOPRAZOLE SOD SESQUIHYDRATE 20 MG TAB PO (08:00)
[2022-01-09] MEDS: TAMSULOSIN HCL 0.4 MG CAPSULE PO (08:00)
[2022-01-09] MEDS: MELOXICAM 7.5 MG TABLET 15 MG PO (08:00)
[2022-01-09] MEDS: FUROSEMIDE 20 MG TABLET PO ×2 (08:00→16:52)
[2022-01-09] MEDS: DOXYCYCLINE 100 MG/NS 100 ML 100 MG/100 ML BAG IVPB ×2 (08:01→20:32)
--- NOTE | 2022-01-09 10:16 | WPDANESPN ---
Anes - Prog Note Post-Op Date/Time: 01/09/22 10:16 Cardiovascular status: normal Respiratory status: normal Airway patency: baseline Mental status: baseline Post-Op hydration status: normal Vital Signs: Last Vital Signs Temp 97 F L 01/09/22 05:00 Pulse 64 01/09/22 05:00 Resp 16 01/09/22 05:00 BP 158/111 H 01/09/22 05:00 Pulse Ox 98 01/09/22 05:00 O2 Del Method Nasal Cannula 01/08/22 11:55 O2 Flow Rate 2 01/08/22 11:55 Pain Score (VAS): 2 I/O: Intake & Output 01/08/22 01/09/22 01/09/22 23:59 07:59 15:59 Intake Total 1220 600 0 Output Total 500 1200 Balance 720 -600 0 Laboratory Tests 01/08/22 05:22 01/09/22 05:57 01/08/22 01/08/22 01/08/22 11:08 16:21 19:40 Sodium Potassium Chloride Carbon Dioxide Anion Gap BUN Creatinine Estim Creat Clear Calc Estimated GFR Glucose POC Capillary Glucose 135 H 245 H 177 H Calcium 01/09/22 01/09/22 05:57 07:40 Sodium 138 Potassium 3.7 Chloride 100 Carbon Dioxide 32 H Anion Gap 6 L BUN 19 Creatinine 1.80 H Estim Creat Clear Calc 54 Estimated GFR 38 L Glucose 138 H POC Capillary Glucose 129 H Calcium 8.0 L Post-procedural complaints: none and other (mild confusion) Patient Feedback: Patient satisfied with anesthetic care.
--- NOTE | 2022-01-09 11:05 | PC.NURSE ---
fluids restriction stopped this shift.
--- NOTE | 2022-01-09 11:06 | PC.NURSE ---
urine sodium sent to lab for analysis
--- NOTE | 2022-01-09 11:09 | PCNWS ---
Weekly nutritional screen. Patient is tolerating current diet with adequate intake. No weight loss reported. No nutritional needs at this time. Pt has closed cellulitis to forearm. Continue to follow up 7 days.
[2022-01-09 11:17] LABS: Sodium Urine Random 120 meq/L
[2022-01-09 11:31] LABS: Glucose Point of Care 194 mg/dl (65-105)
[2022-01-09] MEDS: SODIUM CHLORIDE 0.9% IV 1,000 ML 100 ML IV CONT ×3 (11:36→20:29)
--- NOTE | 2022-01-09 12:00 | PM.IMPN ---
Progress Note: A&P Assessment and Plan (1) Sepsis: Code(s): A41.9 - Sepsis, unspecified organism Status: Acute Assessment and Plan: Present on admission. (2) Cellulitis of right upper extremity: Code(s): L03.113 - Cellulitis of right upper limb Status: Acute Assessment and Plan: Status post debridement continue IV antibiotics Cultures noted (3) Atrial fib/flutter, transient: Status: Acute Assessment and Plan: continue amiodarone Not on anticoagulation. Does not follow With any assistant drafter. 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 Status: Acute Assessment and Plan: unchanged (5) Essential hypertension: Code(s): I10 - Essential (primary) hypertension Status: Acute Assessment and Plan: continue home meds (6) Type 2 diabetes mellitus: Qualifiers: Diabetes mellitus group home insulin use: without manager long term care use Diabetes mellitus complication status: with neurologic complications Diabetes mellitus complication detail: with autonomic neuropathy Qualified Code(s): E11.43 - Type 2 diabetes mellitus with diabetic autonomic (poly)neuropathy Code(s): E11.9 - Type 2 diabetes mellitus without complications Status: Acute Assessment and Plan: insulin sliding scale as needed 1800 calorie carb consistent diet (7) URSULA (acute kidney injury): Code(s): N17.9 - Acute kidney failure, unspecified Status: Acute Assessment and Plan: likely secondary to sepsis receiving IV fluids repeat BMP in a.m. (8) Urinary retention: Code(s): R33.9 - Retention of urine, unspecified Status: Acute Assessment and Plan: patient may be experiencing urinary retention. bladder scan reported to be unremarkable however in her low PT resolved. He does report nocturia and frequency of urination Will check urinalysis and urine culture We will add Flomax as suspect he has underlying prostatic hypertrophy. (9) Hyponatremia: Code(s): E87.1 - Hypo-osmolality and hyponatremia Status: Acute Assessment and Plan: continue with fluid restriction, provide gentle IV fluid resusitation limit free water intake Improved Plan Morbid obesity Suspect underlying sleep apnea apnea will do apnea link test Conversational dyspnea no formal lung diagnosis reported. Will check echocardiogram does have history of atrial fibrillation but remains in sinus rhythm he is on chronic amiodarone therapy so lung toxicity related to chronic amiodarone therapy is possibility as well may need high-resolution CT scan to further evaluate his dyspnea. Will check his BNP as well as underlying congestive heart failure is suspected as well. Will give a dose of Lasix today for his lower extremity edema and overall hypervolemia and follow clinical course. He is also quite positive since admission. Cumulative 14 L positive. Weight is up 6 kilos but has not been checked since past few days. Will put on weight every day. . # No lower extremity edema attributes to his amlodipine. With conversational dyspnea noted no prior diagnosis of COPD or any lung disease along with a nonsmoker/ never smoker status. Suspect congestive heart failure. Check echo BNP diuresis except as delineated above. 01/01/2022 interval history 66-year-old male admitted with right upper extremity cellulitis patient blood culture is negative for any bacterial growth there was no drainage from the wound and wound cultures collected, patient has some fears her erythematosus and edema to upper extremity DVT was negative, patient is being treated with Zosyn and vancomycin right upper extremity cellulitis discussed with ID pharmacy recommended to continue the present management as patient is white counts are trending down once reached close to normal will switch over to patient to oral anti
--- NOTE | 2022-01-09 13:10 | PC.NURSE ---
called MD Hooker office pt was inquiring if MD Hooker will be by to see pt today, also was wanting to clarify if nursing is to reinforce dressing only.
--- NOTE | 2022-01-09 13:14 | PC.NURSE ---
MD Posadas stated no need to change dressing today mepilex good for 3 days, MD Posadas to place wound orders for SNF, pt possible discharge to SNF once nephrology clears pt. MD Posadas to possible see pt later this evening after surgery.
--- NOTE | 2022-01-09 13:36 | PC.NURSE ---
pt at scan for kidneys
--- NOTE | 2022-01-09 13:51 | PC.NURSE ---
called lab to have lab add other urine test to orginal sample.
[2022-01-09 14:00] VITALS: BP 141/76; PULSE 76; RESP 16; TEMP 36.5; O2SAT 99
[2022-01-09 14:09] LABS: Creatinine Urine 81.9 mg/dL
[2022-01-09 14:12] LABS: Appearance Urine Clear (Clear); Bilirubin Urine Negative (Negative); Blood Urine Negative (Negative); Color Urine Yellow (Yellow); Glucose Urine UA Negative (Negative); Ketones Urine Negative (Negative); Leukocyte Esterase Ur Negative LEU/UL (Negative); Nitrate Urine Negative (Negative); Protein Urine Negative (Negative); Specific Grav Ur 1.015 (1.001-1.035); Total Protein Urine Random 10 mg/dL; Urobilinogen Urine 0.2 mg/dL (<2.0); pH Urine 5.5 (5.0-9.0)
[2022-01-09 14:13] LABS: Add Urine Microscopic? NO
--- NOTE | 2022-01-09 14:28 | PC.NURSE ---
lab able to run all urine samples for labs from previous sample sent.
[2022-01-09 14:54] LABS: Creatinine Urine 79.6 mg/dL; Total Protein Urine Random 10 mg/dL; Ur Ttl Prot Creatinine Ratio 0.13 mg/mg (0-0.20)
[2022-01-09] MEDS: HYDROcodone/acetaminophen (*CRX) 5-325 MG TABLET 1 TAB PO (15:30)
[2022-01-09 15:47] LABS: Sodium Urine Random 121 meq/L
--- NOTE | 2022-01-09 16:02 | PM.CNNEP ---
Assessment and Plan Assessment and plan (1) URSULA (acute kidney injury): Code(s): N17.9 - Acute kidney failure, unspecified Status: Acute Assessment and Plan: presumably secondary to #2 and perhaps use of diuretics and NSAIDs check urine electrolytes (but will likely be skewed by diuretic therapy) check UA and urine eosinophils check renal ultrasound d/c diuretics since he is getting IVFs follow the trend of repeat labs and urine output (2) Cellulitis and abscess of upper arm and forearm: Status: Acute Assessment and Plan: Plastic Surgery following on IV antibiotics follow culture data dressing changes as outlined pain control (3) Essential hypertension: Code(s): I10 - Essential (primary) hypertension Status: Chronic Assessment and Plan: reasonable control at this time with #1, would avoid overcontrol at this time follow trend of hemodynamics (4) Type 2 diabetes mellitus: Qualifiers: Diabetes mellitus complication detail: with autonomic neuropathy Diabetes mellitus complication status: with neurologic complications Diabetes mellitus intermediate manager insulin use: without longterm use Qualified Code(s): E11.43 - Type 2 diabetes mellitus with diabetic autonomic (poly)neuropathy Code(s): E11.9 - Type 2 diabetes mellitus without complications Status: Chronic Assessment and Plan: follow accuchecks glycemic control Will continue to follow. History of Present Illness Reason for Consult Consult date: 01/09/22 Reason for consult: acute renal failure Chief Complaint Chief complaint: cellulitis History of Present Illness Narrative: The patient is a 66-year-old male with a past medical history as outlined below who presented to [facility] Emergency room about 2 weeks ago with right arm pain. Apparently, the patient states that he hit his right arm against a door 3 days ago and following this accident, he noted increasing pain in association with worsening erythema /redness as well as increasing swelling. Initially, the swelling/rednesserythema started at the site of injury and seemed to be progressively moving up his arm to the point where it is now beyond his right elbow. Initially, he thought that he had a blood clot as some of the pictures that he saw on the Internet seem similar to the appearance of his right arm. In the last day prior to his presentation to the emergency room, he states that he was unable to lift his arm above his shoulder or unable to bend his arm at the elbow. He also reports some chills but no overt fevers, night sweats, nausea, vomiting, or abdominal pain. Workup and evaluation emergency room demonstrated the patient to be hemodynamically stable but routine blood [place] [address] in association with a lactic acid of 2.6. His chemistry showed normal electrolytes but an elevated BUN and creatinine as well. His exam seemed consistent with evidence of a right arm cellulitis although possibility of a DVT could not be fully ruled out either. A venous duplex was done which was negative for DVT and given his elevated white blood cell count and elevated CRP, it was felt that the changes to his right arm or related to infection. Appropriate cultures were obtained and he was started on IV fluids and IV antibiotics with subsequent admission to the hospital for further evaluation and therapy. Since his admission, he has been seen by both General surgery as well as Plastic surgery and has subsequently undergone extensive debridement of his right arm as there were underlying abscesses present both by physical exam as well as repeat imaging. He is currently getting dressing changes as outlined by Plastic surgery in the hopes that this will allow for proper healing of his right arm wounds. It should also be noted that his initial elevated creatinine improved with supportive therap
[2022-01-09 16:36] LABS: Glucose Point of Care 153 mg/dl (65-105)
[2022-01-09 16:52] VITALS: PULSE 76
[2022-01-09] MEDS: AMIODARONE HCL 200 MG TABLET PO (16:52)
--- NOTE | 2022-01-09 16:55 | WPDPN ---
Progress Note: A&P Assessment and Plan (1) Abscess of right upper arm and forearm: Code(s): L02.413 - Cutaneous abscess of right upper limb Status: Acute Assessment and Plan: Progressing well with his large wounds. Will be a difficult dressing change on Thursday. I will arrange to be present. Continues on IV Doxy. (2) URSULA (acute kidney injury): Code(s): N17.9 - Acute kidney failure, unspecified Status: Acute Assessment and Plan: Managed by others. Will continue to benefit by being off Vanco/Zosyn combination. Subjective Date/time seen: 01/09/22 16:55 Exam Narrative: Sitting up with legs off the bed eating his dinner and talking on the phone. AFVSS. Culture growing MSSA, Methacillin Sensitive Staph aureus. Bandage has stayed on fairly well with the use of Coban. Expecting next change will be Thursday at the bedside. Creatinine being observed. Was at 1.0 on admission. Objective Data Vital Signs Vital Signs: Vital Signs - 24 hr 01/08/22 17:07 01/08/22 23:14 01/09/22 05:00 Temperature 97.8 F 97 F L Pulse Rate 74 63 64 Respiratory Rate 18 16 Blood Pressure 149/72 H 158/111 H Pulse Oximetry 98 98 Oxygen Delivery 01/09/22 08:00 01/09/22 14:00 01/09/22 16:52 Temperature 97.7 F Pulse Rate 64 76 76 Respiratory Rate 16 16 Blood Pressure 141/76 H Pulse Oximetry 98 99 Oxygen Delivery Room Air Intake/Output Intake/Output: Intake & Output 01/06/22 01/07/22 01/08/22 01/09/22 23:59 23:59 23:59 23:59 Intake Total 1780 3242 4290 1922 Output Total 400 1400 3875 1200 Balance 1380 1842 415 722 Meds/Results Medications: Active Medications Generic Name Dose Route Start Last Admin Trade Name Freq PRN Reason Stop Dose Admin Acetaminophen 1,000 mg 12/26/21 04:45 Acetaminophen 500 Mg Tablet PO Q6H PRN Mild Pain (1-3) or Fever Hydrocodone Bitart/Acetaminophen 1 tab 01/05/22 09:42 01/09/22 15:30 Hydrocodone/Acetaminophen (*Crx) 5-325 Mg Tablet PO 1 tab Q6H PRN Administration Pain Rated 4-6 Amiodarone HCl 200 mg 12/26/21 17:00 01/09/22 16:52 Amiodarone Hcl 200 Mg Tablet PO 200 mg DAILY@1700 NANCY Administration Amlodipine Besylate 5 mg 12/26/21 21:00 01/08/22 20:53 Amlodipine Besylate 5 Mg Tablet PO 5 mg HS NANCY Administration Benzocaine 1 lozenge 12/30/21 08:13 12/31/21 04:54 Benzocaine/Menthol (*Bkc) 18 Ea Lozenge PO 1 lozenge PRN PRN Administration Sore Throat Dextrose 12.5 gm 12/30/21 22:39 Dextrose 50% 25 Gm/50 Ml Syringe IV PUSH PRN PRN Hypoglycemia Protocol Docusate Sodium 100 mg 01/01/22 17:56 Docusate Sodium 100 Mg Capsule PO Q12H PRN Constipation Enoxaparin Sodium 40 mg 12/26/21 09:00 01/09/22 08:02 Enoxaparin 40 Mg/0.4 Ml Syringe SUB-Q Not Given DAILY NANCY Fentanyl Citrate 25 mcg 01/08/22 09:34 01/08/22 11:56 Fentanyl Citrate Inj (*Crx) 100 Mcg/2 Ml Vial IV PUSH 25 mcg Q2M PRN Administration Pain Furosemide 20 mg 01/02/22 09:00 01/09/22 16:52 Furosemide 20 Mg Tablet PO 20 mg BID NANCY Administration Gabapentin 100 mg 12/26/21 06:00 01/09/22 13:06 Gabapentin 100 Mg Capsule PO 100 mg Q8HR NANCY Administration Glucagon 1 mg 12/30/21 22:39 Glucagon For Inj 1 Mg Vial IM PRN PRN Hypoglycemia Protocol Glucose 15 gm 12/30/21 22:39 Glucose Oral Gel 15 Gm Of Glucse In 37.5 Gm Tube PO PRN PRN Hypoglycemia Protocol Hydromorphone HCl 1 mg 01/05/22 09:42 01/09/22 05:48 Hydromorphone Hcl Inj (*Crx) 1 Mg/Ml Syr IV PUSH 1 mg Q3H PRN Administration Pain Rated 7-10 Dextrose 1,000 mls @ 100 mls/hr 12/30/21 22:39 Dextrose 5% 1,000 Ml IVPB PRN PRN Hypoglycemia Protocol Doxycycline Hyclate 100 mg in 100 mls @ 100 mls/hr 01/05/22 10:00 01/09/22 09:01 Vibramycin 100 Mg/Ns 100 Ml IVPB Infused Q12HR NANCY Infusio
--- NOTE | 2022-01-09 18:28 | PC.NURSE ---
[facility] x3 lumen dressing changed this shift, next dressing change due 01/16/22
[2022-01-09 20:17] LABS: Glucose Point of Care 135 mg/dl (65-105)
[2022-01-09] MEDS: amLODIPine BESYLATE 5 MG TABLET PO (20:30)
[2022-01-09] MEDS: INSULIN GLARGINE (*BKC) 100 UNITS/ML 15 UNITS SUB-Q (20:57)
[2022-01-09 22:28] VITALS: BP 145/83; PULSE 64; RESP 18; TEMP 37.3; O2SAT 98
[2022-01-10] MEDS: HYDROmorphone HCL INJ (*CRX) 1 MG/ML SYR IV PUSH ×6 (01:51→22:17)
[2022-01-10] MEDS: MAGNES & ALUM HYD/SIMETH/DIPHENHYD/LIDOCAINE 119 ML MOUTHWASH BY MOUTH ×6 (01:53→21:01)
[2022-01-10] MEDS: GABAPENTIN 100 MG CAPSULE PO ×3 (05:51→20:55)
[2022-01-10] MEDS: LEVOTHYROXINE SODIUM 50 MCG TABLET PO (05:51)
[2022-01-10] MEDS: CENTRAL LINE FLUSH 10 ML IV PUSH ×3 (06:12→21:16)
[2022-01-10] MEDS: CENTRAL LINE FLUSH 20 ML IV PUSH (06:13)
[2022-01-10 06:33] LABS: Anion Gap 6 mmol/L (8-16); Blood Urea Nitrogen 17 mg/dL (9-20); Calcium 8.1 mg/dL (8.4-10.2); Carbon Dioxide 31 mmol/L (22-30); Chloride 99 mmol/L (98-107); Creatine Kinase 55 U/L (55-170); Estimated CRCL calculation 59 ml/min; Estimated Glomerular Filt Rate 43; Glucose 124 mg/dL (65-110); Potassium 3.4 mmol/L (3.4-5.0); Sodium 136 mmol/L (137-145)
[2022-01-10 07:40] VITALS: PULSE 64; RESP 18; O2SAT 98
[2022-01-10 07:42] LABS: Glucose Point of Care 120 mg/dl (65-105)
[2022-01-10] MEDS: DOXYCYCLINE 100 MG/NS 100 ML 100 MG/100 ML BAG IVPB ×2 (08:12→21:00)
[2022-01-10] MEDS: SODIUM CHLORIDE 0.9% IV 1,000 ML 100 ML IV CONT (08:12)
[2022-01-10] MEDS: PANTOPRAZOLE SOD SESQUIHYDRATE 20 MG TAB PO (08:13)
[2022-01-10] MEDS: ENOXAPARIN 40 MG/0.4 ML SYRINGE SUB-Q (08:13)
[2022-01-10] MEDS: TAMSULOSIN HCL 0.4 MG CAPSULE PO (08:13)
[2022-01-10] MEDS: FUROSEMIDE 20 MG TABLET PO (08:13)
[2022-01-10] MEDS: INSULIN ASPART (*BKC) 100 UNITS/ML 6 UNITS SUB-Q ×3 (08:56→17:29)
--- NOTE | 2022-01-10 11:08 | PC.NURSE ---
MD Licea to do dressing change Thursday01/12/22 continue to reinforce dressing until MD Licea changes dressing.
--- NOTE | 2022-01-10 11:10 | PC.NURSE ---
MD Licea to change dressing Thursday01/11/22 at bedside, nursing to reinforce dressing until further notice.
[2022-01-10 11:35] LABS: Glucose Point of Care 169 mg/dl (65-105)
--- NOTE | 2022-01-10 12:23 | PM.IMPN ---
Progress Note: A&P Assessment and Plan (1) Sepsis: Code(s): A41.9 - Sepsis, unspecified organism Status: Acute Assessment and Plan: Present on admission. (2) Cellulitis of right upper extremity: Code(s): L03.113 - Cellulitis of right upper limb Status: Acute Assessment and Plan: Status post debridement continue IV antibiotics Cultures noted (3) Atrial fib/flutter, transient: Status: Acute Assessment and Plan: continue amiodarone Not on anticoagulation. Does not follow With any drywall stripper helper. 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 Status: Acute Assessment and Plan: unchanged (5) Essential hypertension: Code(s): I10 - Essential (primary) hypertension Status: Acute Assessment and Plan: continue home meds (6) Type 2 diabetes mellitus: Qualifiers: Diabetes mellitus mcc insulin use: without sort manager use Diabetes mellitus complication status: with neurologic complications Diabetes mellitus complication detail: with autonomic neuropathy Qualified Code(s): E11.43 - Type 2 diabetes mellitus with diabetic autonomic (poly)neuropathy Code(s): E11.9 - Type 2 diabetes mellitus without complications Status: Acute Assessment and Plan: insulin sliding scale as needed 1800 calorie carb consistent diet (7) URSULA (acute kidney injury): Code(s): N17.9 - Acute kidney failure, unspecified Status: Acute Assessment and Plan: likely secondary to sepsis versus antibiotics, improving receiving IV fluids repeat BMP in a.m. (8) Urinary retention: Code(s): R33.9 - Retention of urine, unspecified Status: Acute Assessment and Plan: patient may be experiencing urinary retention. bladder scan reported to be unremarkable however in her low PT resolved. He does report nocturia and frequency of urination Will check urinalysis and urine culture We will add Flomax as suspect he has underlying prostatic hypertrophy. (9) Hyponatremia: Code(s): E87.1 - Hypo-osmolality and hyponatremia Status: Acute Assessment and Plan: continue with fluid restriction, provide gentle IV fluid resusitation limit free water intake Improved Plan Morbid obesity Suspect underlying sleep apnea apnea will do apnea link test Conversational dyspnea no formal lung diagnosis reported. Will check echocardiogram does have history of atrial fibrillation but remains in sinus rhythm he is on chronic amiodarone therapy so lung toxicity related to chronic amiodarone therapy is possibility as well may need high-resolution CT scan to further evaluate his dyspnea. Will check his BNP as well as underlying congestive heart failure is suspected as well. Will give a dose of Lasix today for his lower extremity edema and overall hypervolemia and follow clinical course. He is also quite positive since admission. Cumulative 14 L positive. Weight is up 6 kilos but has not been checked since past few days. Will put on weight every day. . # No lower extremity edema attributes to his amlodipine. With conversational dyspnea noted no prior diagnosis of COPD or any lung disease along with a nonsmoker/ never smoker status. Suspect congestive heart failure. Check echo BNP diuresis except as delineated above. 01/01/2022 interval history 66-year-old male admitted with right upper extremity cellulitis patient blood culture is negative for any bacterial growth there was no drainage from the wound and wound cultures collected, patient has some fears her erythematosus and edema to upper extremity DVT was negative, patient is being treated with Zosyn and vancomycin right upper extremity cellulitis discussed with ID pharmacy recommended to continue the present management as patient is white counts are trending down once reached close to normal will switc
--- NOTE | 2022-01-10 14:17 | PM.PNNEP ---
Progress Note: A&P Assessment and Plan (1) URSULA (acute kidney injury): Code(s): N17.9 - Acute kidney failure, unspecified Status: Acute Assessment and Plan: presumably secondary to #2 and perhaps use of diuretics and NSAIDs evaluation to date: renal ultrasound normal urine lytes non-prerenal (but was on diuretics when collected) UA unremarkable urine eosinophils negative CPK normal hold diuretics follow the trend of repeat labs and urine output (2) Cellulitis and abscess of upper arm and forearm: Status: Acute Assessment and Plan: Plastic Surgery following on antibiotics culture data noted dressing changes as outlined pain control (3) Essential hypertension: Code(s): I10 - Essential (primary) hypertension Status: Chronic Assessment and Plan: reasonable control at this time with #1, would avoid overcontrol at this time follow trend of hemodynamics (4) Type 2 diabetes mellitus: Qualifiers: Diabetes mellitus termite technician insulin use: without termite technician use Diabetes mellitus complication status: with neurologic complications Diabetes mellitus complication detail: with autonomic neuropathy Qualified Code(s): E11.43 - Type 2 diabetes mellitus with diabetic autonomic (poly)neuropathy Code(s): E11.9 - Type 2 diabetes mellitus without complications Status: Chronic Assessment and Plan: follow accuchecks glycemic control Will continue to follow. Subjective Date/time seen: 01/10/22 14:17 No acute issues or complaints voiced at the time of my visit; renal function appears to be doing a bit better this AM with good urine output (all he is still on oral diuretics); no events overnight or earlier this morning; no apparent distress noted. Exam Narrative: General: WD/WN male in NAD Heart: normal S1 and S2; no rub Lungs: clear to auscultation Abdomen: soft, nontender, nondistended, positive bowel sounds Extremities: no cyanosis or clubbing; traceedema Skin: right arm dressings in place Objective Data Vital Signs Vital Signs: Vital Signs Temp Pulse Resp BP Pulse Ox O2 Del Method 01/10/22 14:37 35.9 C L 60 20 131/70 96 01/10/22 07:40 64 18 98 Room Air 01/09/22 22:28 37.3 C 64 18 145/83 H 98 01/09/22 16:52 76 Intake/Output Intake/Output: Intake & Output 01/07/22 01/08/22 01/09/22 01/10/22 23:59 23:59 23:59 23:59 Intake Total 3242 4290 3612 1760 Output Total 5137 1195 2750 1900 Balance 1842 415 862 -140 Meds/Results Medications: Active Medications Generic Name Dose Route Start Last Admin Trade Name Freq PRN Reason Stop Dose Admin Acetaminophen 1,000 mg 12/26/21 04:45 Acetaminophen 500 Mg Tablet PO Q6H PRN Mild Pain (1-3) or Fever Hydrocodone Bitart/Acetaminophen 1 tab 01/05/22 09:42 01/09/22 15:30 Hydrocodone/Acetaminophen (*Crx) 5-325 Mg Tablet PO 1 tab Q6H PRN Administration Pain Rated 4-6 Amiodarone HCl 200 mg 12/26/21 17:00 01/09/22 16:52 Amiodarone Hcl 200 Mg Tablet PO 200 mg DAILY@1700 NANCY Administration Amlodipine Besylate 5 mg 12/26/21 21:00 01/09/22 20:30 Amlodipine Besylate 5 Mg Tablet PO 5 mg HS NANCY Administration Benzocaine 1 lozenge 12/30/21 08:13 12/31/21 04:54 Benzocaine/Menthol (*Bkc) 18 Ea Lozenge PO 1 lozenge PRN PRN Administration Sore Throat Dextrose 12.5 gm 12/30/21 22:39 Dextrose 50% 25 Gm/50 Ml Syringe IV PUSH PRN PRN Hypoglycemia Protocol Docusate Sodium 100 mg 01/01/22 17:56 Docusate Sodium 100 Mg Capsule PO Q12H PRN Constipation Enoxaparin Sodium 40 mg 12/26/21 09:00 01/10/22 08:13 Enoxaparin 40 Mg/0.4 Ml Syringe SUB-Q 40 mg DAILY NANCY Administration Fentanyl Citrate 25 mcg 01/08/22 09:34 01/08/22 11:56 Fentanyl Citrate Inj (*Crx) 100 Mcg/2 Ml Vial IV PUSH 25 mcg Q2M PRN Administration Pain
--- NOTE | 2022-01-10 14:17 | P.PNNP_ITS ---
Progress Note: A&P Assessment and Plan (1) URSULA (acute kidney injury): Code(s): N17.9 - Acute kidney failure, unspecified Status: Acute Assessment and Plan: * presumably secondary to #2 and perhaps use of diuretics and NSAIDs * evaluation to date: * renal ultrasound normal * urine lytes non-prerenal (but was on diuretics when collected) * UA unremarkable * urine eosinophils negative * CPK normal * hold diuretics * follow the trend of repeat labs and urine output (2) Cellulitis and abscess of upper arm and forearm: Status: Acute Assessment and Plan: * Plastic Surgery following * on antibiotics * culture data noted * dressing changes as outlined * pain control (3) Essential hypertension: Code(s): I10 - Essential (primary) hypertension Status: Chronic Assessment and Plan: * reasonable control at this time * with #1, would avoid overcontrol at this time * follow trend of hemodynamics (4) Type 2 diabetes mellitus: Qualifiers: Diabetes mellitus chcf insulin use: without roasterman use Diabetes mellitus complication status: with neurologic complications Diabetes mellitus complication detail: with autonomic neuropathy Qualified Code(s): E11.43 - Type 2 diabetes mellitus with diabetic autonomic (poly)neuropathy Code(s): E11.9 - Type 2 diabetes mellitus without complications Status: Chronic Assessment and Plan: * follow accuchecks * glycemic control Will continue to follow. Subjective Date/time seen: 01/10/22 14:17 No acute issues or complaints voiced at the time of my visit; renal function appears to be doing a bit better this AM with good urine output (all he is still on oral diuretics); no events overnight or earlier this morning; no apparent distress noted. Exam Narrative: General: WD/WN male in NAD Heart: normal S1 and S2; no rub Lungs: clear to auscultation Abdomen: soft, nontender, nondistended, positive bowel sounds Extremities: no cyanosis or clubbing; traceedema Skin: right arm dressings in place Objective Data Vital Signs Vital Signs: Vital Signs Temp Pulse Resp BP Pulse Ox O2 Del Method 01/10/22 14:37 35.9 C L 60 20 131/70 96 01/10/22 07:40 64 18 98 Room Air 01/09/22 22:28 37.3 C 64 18 145/83 H 98 01/09/22 16:52 76 Intake/Output Intake/Output: Intake & Output 01/07/22 01/08/22 01/09/22 01/10/22 23:59 23:59 23:59 23:59 Intake Total 3246 4290 0452 1760 Output Total 1667 3295 2750 1900 Balance 1842 415 862 -140 Meds/Results Medications: Active Medications Generic Name Dose Route Start Last Admin Trade Name Freq PRN Reason Stop Dose Admin Acetaminophen 1,000 mg 12/26/21 04:45 Acetaminophen 500 Mg Tablet PO Q6H PRN Mild Pain (1-3) or Fever Hydrocodone Bitart/Acetaminophen 1 tab 01/05/22 09:42 01/09/22 15:30 Hydrocodone/Acetaminophen (*Crx) 5-325 Mg Tablet PO 1 tab Q6H PRN Administration Pain Rated 4-6 Amiodarone HCl 200 mg 12/26/21 17:00 01/09/22 16:52 Amiodarone Hcl 200 Mg Tablet PO 200 mg DAILY@1700 NANCY Administration Amlodipine Besylate
--- NOTE | 2022-01-10 14:35 | PC.NURSE ---
reinforced abd pad in pt axially area this shift. MD Hooker to change dressing tomorrow.
[2022-01-10 14:37] VITALS: BP 131/70; PULSE 60; RESP 20; TEMP 35.9; O2SAT 96
[2022-01-10 16:52] LABS: Glucose Point of Care 129 mg/dl (65-105)
--- NOTE | 2022-01-10 18:36 | WPDPN ---
Progress Note: A&P Assessment and Plan (1) Cellulitis and abscess of upper arm and forearm: Status: Acute Assessment and Plan: No new problems. Improving. Plan Will redress R UE tomorrow at bedside. Subjective Date/time seen: 01/10/22 18:36 Interval history: Reports frustration with his situation. Exam Narrative: Bandage loosened to reduce swelling. Hand and wrist motion not limited by effects of the subcutaneous abscess. Bandage tends to slide distally, difficult region to bandage. Creatinine 1.6 Objective Data Vital Signs Vital Signs: Vital Signs - 24 hr 01/09/22 22:28 01/10/22 07:40 01/10/22 14:37 Temperature 99.1 F 96.6 F L Pulse Rate 64 64 60 Respiratory Rate 18 18 20 Blood Pressure 145/83 H 131/70 Pulse Oximetry 98 98 96 Oxygen Delivery Room Air Intake/Output Intake/Output: Intake & Output 01/07/22 01/08/22 01/09/22 01/10/22 23:59 23:59 23:59 23:59 Intake Total 3242 4290 3612 1980 Output Total 1400 3875 2750 3400 Balance 1842 415 862 -1420 Meds/Results Medications: Active Medications Generic Name Dose Route Start Last Admin Trade Name Freq PRN Reason Stop Dose Admin Acetaminophen 1,000 mg 12/26/21 04:45 Acetaminophen 500 Mg Tablet PO Q6H PRN Mild Pain (1-3) or Fever Hydrocodone Bitart/Acetaminophen 1 tab 01/05/22 09:42 01/09/22 15:30 Hydrocodone/Acetaminophen (*Crx) 5-325 Mg Tablet PO 1 tab Q6H PRN Administration Pain Rated 4-6 Amiodarone HCl 200 mg 12/26/21 17:00 01/09/22 16:52 Amiodarone Hcl 200 Mg Tablet PO 200 mg DAILY@1700 NANCY Administration Amlodipine Besylate 5 mg 12/26/21 21:00 01/09/22 20:30 Amlodipine Besylate 5 Mg Tablet PO 5 mg HS NANCY Administration Benzocaine 1 lozenge 12/30/21 08:13 12/31/21 04:54 Benzocaine/Menthol (*Bkc) 18 Ea Lozenge PO 1 lozenge PRN PRN Administration Sore Throat Dextrose 12.5 gm 12/30/21 22:39 Dextrose 50% 25 Gm/50 Ml Syringe IV PUSH PRN PRN Hypoglycemia Protocol Docusate Sodium 100 mg 01/01/22 17:56 Docusate Sodium 100 Mg Capsule PO Q12H PRN Constipation Enoxaparin Sodium 40 mg 12/26/21 09:00 01/10/22 08:13 Enoxaparin 40 Mg/0.4 Ml Syringe SUB-Q 40 mg DAILY NANCY Administration Fentanyl Citrate 25 mcg 01/08/22 09:34 01/08/22 11:56 Fentanyl Citrate Inj (*Crx) 100 Mcg/2 Ml Vial IV PUSH 25 mcg Q2M PRN Administration Pain Furosemide 20 mg 01/02/22 09:00 01/10/22 08:13 Furosemide 20 Mg Tablet PO 20 mg BID NANCY Administration Gabapentin 100 mg 12/26/21 06:00 01/10/22 13:03 Gabapentin 100 Mg Capsule PO 100 mg Q8HR NANCY Administration Glucagon 1 mg 12/30/21 22:39 Glucagon For Inj 1 Mg Vial IM PRN PRN Hypoglycemia Protocol Glucose 15 gm 12/30/21 22:39 Glucose Oral Gel 15 Gm Of Glucse In 37.5 Gm Tube PO PRN PRN Hypoglycemia Protocol Hydromorphone HCl 1 mg 01/05/22 09:42 01/10/22 15:46 Hydromorphone Hcl Inj (*Crx) 1 Mg/Ml Syr IV PUSH 1 mg Q3H PRN Administration Pain Rated 7-10 Dextrose 1,000 mls @ 100 mls/hr 12/30/21 22:39 Dextrose 5% 1,000 Ml IVPB PRN PRN Hypoglycemia Protocol Doxycycline Hyclate 100 mg in 100 mls @ 100 mls/hr 01/05/22 10:00 01/10/22 09:12 Vibramycin 100 Mg/Ns 100 Ml IVPB Infused Q12HR NANCY Infusion Sodium Chloride 1,000 mls @ 75 mls/hr 01/06/22 07:55 01/10/22 17:24 Normal Saline Iv IV CONT 75 mls/hr .[id number] NANCY Infusion Insulin Aspart 3 - 6 units 12/31/21 08:00 01/10/22 17:30 Insulin Aspart (*Bkc) 100 Units/Ml SUB-Q Not Given [facility] Protocol Insulin Aspart 6 units 01/01/22 08:00 01/10/22 17:29 Insulin Aspart (*Bkc) 100 Units/Ml SUB-Q 6 units TIDWM NANCY Administration Insulin Glargine 15 units 12/31/21 21:00 01/09/22 20:57 Insulin Glargine (*Bkc) 100 Units/Ml SUB-Q 15 units HS NANCY Administration Ipratr
[2022-01-10 18:52] VITALS: PULSE 64
[2022-01-10] MEDS: AMIODARONE HCL 200 MG TABLET PO (18:52)
[2022-01-10 20:00] VITALS: PULSE 61; RESP 16; O2SAT 96
[2022-01-10] MEDS: amLODIPine BESYLATE 5 MG TABLET PO (20:55)
[2022-01-10] MEDS: SODIUM CHLORIDE 0.9% IV 1,000 ML 75 ML IV CONT (21:02)
[2022-01-10] MEDS: INSULIN GLARGINE (*BKC) 100 UNITS/ML 15 UNITS SUB-Q (21:05)
[2022-01-10] MEDS: HYDROcodone/acetaminophen (*CRX) 5-325 MG TABLET 1 TAB PO (21:14)
[2022-01-10 21:34] VITALS: BP 135/75; PULSE 61; RESP 16; TEMP 36.7; O2SAT 96
[2022-01-10 21:34] LABS: Glucose Point of Care 109 mg/dl (65-105)
[2022-01-11] MEDS: MAGNES & ALUM HYD/SIMETH/DIPHENHYD/LIDOCAINE 119 ML MOUTHWASH BY MOUTH ×5 (01:00→21:10)
[2022-01-11] MEDS: HYDROmorphone HCL INJ (*CRX) 1 MG/ML SYR IV PUSH ×4 (02:30→11:25)
[2022-01-11] MEDS: HYDROcodone/acetaminophen (*CRX) 5-325 MG TABLET 1 TAB PO ×2 (04:21→11:35)
[2022-01-11] MEDS: LEVOTHYROXINE SODIUM 50 MCG TABLET PO (05:41)
[2022-01-11] MEDS: CENTRAL LINE FLUSH 10 ML IV PUSH ×3 (05:41→21:10)
[2022-01-11] MEDS: GABAPENTIN 100 MG CAPSULE PO ×3 (05:41→21:09)
[2022-01-11 06:27] LABS: Anion Gap 4 mmol/L (8-16); Blood Urea Nitrogen 18 mg/dL (9-20); Calcium 7.9 mg/dL (8.4-10.2); Carbon Dioxide 32 mmol/L (22-30); Chloride 99 mmol/L (98-107); Estimated CRCL calculation 59 ml/min; Estimated Glomerular Filt Rate 43; Glucose 118 mg/dL (65-110); Potassium 3.5 mmol/L (3.4-5.0); Sodium 135 mmol/L (137-145)
[2022-01-11 07:42] LABS: Glucose Point of Care 121 mg/dl (65-105)
[2022-01-11] MEDS: DOXYCYCLINE 100 MG/NS 100 ML 100 MG/100 ML BAG IVPB ×2 (08:04→21:10)
[2022-01-11] MEDS: INSULIN ASPART (*BKC) 100 UNITS/ML 6 UNITS SUB-Q ×3 (08:07→17:15)
[2022-01-11] MEDS: TAMSULOSIN HCL 0.4 MG CAPSULE PO (08:08)
[2022-01-11] MEDS: PANTOPRAZOLE SOD SESQUIHYDRATE 20 MG TAB PO (08:08)
--- NOTE | 2022-01-11 12:18 | WPDPN ---
Progress Note: A&P Assessment and Plan (1) Cellulitis and abscess of upper arm and forearm: Status: Acute Assessment and Plan: Progressing satisfactorily. Should be covered adequately with oral antibiotic at discharge. Bedside dressing done with no problem. Wounds will gradually close by secondary intention I believe. Pt has lots of lax tissue. If surgical closure is contemplated, I would suggest waiting 5-7 days. Recommend dressing change every other day for now. Dr Hooker to see pt in [facility] in 2 weeks please. Plan OK for discharge tomorrow. Subjective Date/time seen: 01/11/22 12:18 Interval history: Worried about bedside dressing change. Exam Narrative: Creat at 1.6 POC 120-30 Dressing change without significant pain to patient. All areas of wound examined. No purulence. Minimal slough. All areas of wound are beefy red. Each dressed with Mepilex Ag 4x4 cut to fit each site then wrapped with Kerlix roll and ABD. Elbow wound tunnels into both adjacent wounds and was fitted easily with a 1.5 inch x 4 inch Mepilex Ag pad. The axillary wound was dressed with ~6 inches of 1 inch Iodoform ribbon, introduced into wound painlessly with a hemostat leaving a tail. Six (6) total pieces of dressing material left in the patient. Objective Data Vital Signs Vital Signs: Vital Signs - 24 hr 01/10/22 14:37 01/10/22 18:52 01/10/22 21:34 Temperature 96.6 F L 98.1 F Pulse Rate 60 64 61 Respiratory Rate 20 16 Blood Pressure 131/70 135/75 Pulse Oximetry 96 96 Oxygen Delivery 01/10/22 20:00 Temperature Pulse Rate 61 Respiratory Rate 16 Blood Pressure Pulse Oximetry 96 Oxygen Delivery Room Air Intake/Output Intake/Output: Intake & Output 01/08/22 01/09/22 01/10/22 01/11/22 23:59 23:59 23:59 23:59 Intake Total 4290 3612 3080 990 Output Total 3875 2750 3400 800 Balance 415 862 -320 190 Meds/Results Medications: Active Medications Generic Name Dose Route Start Last Admin Trade Name Freq PRN Reason Stop Dose Admin Acetaminophen 1,000 mg 12/26/21 04:45 Acetaminophen 500 Mg Tablet PO Q6H PRN Mild Pain (1-3) or Fever Hydrocodone Bitart/Acetaminophen 1 tab 01/05/22 09:42 01/11/22 11:35 Hydrocodone/Acetaminophen (*Crx) 5-325 Mg Tablet PO 1 tab Q6H PRN Administration Pain Rated 4-6 Amiodarone HCl 200 mg 12/26/21 17:00 01/10/22 18:52 Amiodarone Hcl 200 Mg Tablet PO 200 mg DAILY@1700 NANCY Administration Amlodipine Besylate 5 mg 12/26/21 21:00 01/10/22 20:55 Amlodipine Besylate 5 Mg Tablet PO 5 mg HS NANCY Administration Benzocaine 1 lozenge 12/30/21 08:13 12/31/21 04:54 Benzocaine/Menthol (*Bkc) 18 Ea Lozenge PO 1 lozenge PRN PRN Administration Sore Throat Dextrose 12.5 gm 12/30/21 22:39 Dextrose 50% 25 Gm/50 Ml Syringe IV PUSH PRN PRN Hypoglycemia Protocol Docusate Sodium 100 mg 01/01/22 17:56 Docusate Sodium 100 Mg Capsule PO Q12H PRN Constipation Enoxaparin Sodium 40 mg 12/26/21 09:00 01/11/22 08:07 Enoxaparin 40 Mg/0.4 Ml Syringe SUB-Q Not Given DAILY [facility] Fentanyl Citrate 25 mcg 01/08/22 09:34 01/08/22 11:56 Fentanyl Citrate Inj (*Crx) 100 Mcg/2 Ml Vial IV PUSH 25 mcg Q2M PRN Administration Pain Furosemide 20 mg 01/02/22 09:00 01/10/22 08:13 Furosemide 20 Mg Tablet PO 20 mg BID NANCY Administration Gabapentin 100 mg 12/26/21 06:00 01/11/22 05:41 Gabapentin 100 Mg Capsule PO 100 mg Q8HR NANCY Administration Glucagon 1 mg 12/30/21 22:39 Glucagon For Inj 1 Mg Vial IM PRN PRN Hypoglycemia Protocol Glucose 15 gm 12/30/21 22:39 Glucose Oral Gel 15 Gm Of Glucse In 37.5 Gm Tube PO PRN PRN Hypoglycemia Protocol Hydromorphone HCl 1 mg 01/05/22 09:42 01/11/22 11:25 Hydromorphone Hcl Inj (*Crx) 1 Mg/Ml Syr IV PUSH 1 mg Q3H PRN Administration Pain Rate
[2022-01-11 12:19] LABS: Glucose Point of Care 159 mg/dl (65-105)
[2022-01-11] MEDS: SODIUM CHLORIDE 0.9% IV 1,000 ML 75 ML IV CONT (12:31)
--- NOTE | 2022-01-11 12:34 | PM.IMPN ---
Progress Note: A&P Assessment and Plan (1) Sepsis: Code(s): A41.9 - Sepsis, unspecified organism Status: Acute Assessment and Plan: Present on admission. (2) Cellulitis of right upper extremity: Code(s): L03.113 - Cellulitis of right upper limb Status: Acute Assessment and Plan: Status post debridement continue IV antibiotics Cultures noted (3) Atrial fib/flutter, transient: Status: Acute Assessment and Plan: continue amiodarone Not on anticoagulation. Does not follow With any dental professional. 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 Status: Acute Assessment and Plan: unchanged (5) Essential hypertension: Code(s): I10 - Essential (primary) hypertension Status: Acute Assessment and Plan: continue home meds (6) Type 2 diabetes mellitus: Qualifiers: Diabetes mellitus residential insulin use: without rodent exterminator use Diabetes mellitus complication status: with neurologic complications Diabetes mellitus complication detail: with autonomic neuropathy Qualified Code(s): E11.43 - Type 2 diabetes mellitus with diabetic autonomic (poly)neuropathy Code(s): E11.9 - Type 2 diabetes mellitus without complications Status: Acute Assessment and Plan: insulin sliding scale as needed 1800 calorie carb consistent diet (7) URSULA (acute kidney injury): Code(s): N17.9 - Acute kidney failure, unspecified Status: Acute Assessment and Plan: likely secondary to sepsis versus antibiotics, improving receiving IV fluids repeat BMP in a.m. (8) Urinary retention: Code(s): R33.9 - Retention of urine, unspecified Status: Acute Assessment and Plan: patient may be experiencing urinary retention. bladder scan reported to be unremarkable however in her low PT resolved. He does report nocturia and frequency of urination Will check urinalysis and urine culture We will add Flomax as suspect he has underlying prostatic hypertrophy. (9) Hyponatremia: Code(s): E87.1 - Hypo-osmolality and hyponatremia Status: Acute Assessment and Plan: continue with fluid restriction, provide gentle IV fluid resusitation limit free water intake Improved Plan Morbid obesity Suspect underlying sleep apnea apnea will do apnea link test Conversational dyspnea no formal lung diagnosis reported. Will check echocardiogram does have history of atrial fibrillation but remains in sinus rhythm he is on chronic amiodarone therapy so lung toxicity related to chronic amiodarone therapy is possibility as well may need high-resolution CT scan to further evaluate his dyspnea. Will check his BNP as well as underlying congestive heart failure is suspected as well. Will give a dose of Lasix today for his lower extremity edema and overall hypervolemia and follow clinical course. He is also quite positive since admission. Cumulative 14 L positive. Weight is up 6 kilos but has not been checked since past few days. Will put on weight every day. . # No lower extremity edema attributes to his amlodipine. With conversational dyspnea noted no prior diagnosis of COPD or any lung disease along with a nonsmoker/ never smoker status. Suspect congestive heart failure. Check echo BNP diuresis except as delineated above. 01/01/2022 interval history 66-year-old male admitted with right upper extremity cellulitis patient blood culture is negative for any bacterial growth there was no drainage from the wound and wound cultures collected, patient has some fears her erythematosus and edema to upper extremity DVT was negative, patient is being treated with Zosyn and vancomycin right upper extremity cellulitis discussed with ID pharmacy recommended to continue the present management as patient is white counts are trending down once reached close to normal will switc
--- NOTE | 2022-01-11 12:45 | PM.PNNEP ---
Progress Note: A&P Assessment and Plan (1) URSULA (acute kidney injury): Code(s): N17.9 - Acute kidney failure, unspecified Status: Acute Assessment and Plan: presumably secondary to #2 and perhaps use of diuretics and NSAIDs evaluation to date: renal ultrasound normal urine lytes non-prerenal (but was on diuretics when collected) UA unremarkable urine eosinophils negative CPK normal holding diuretics follow the trend of repeat labs and urine output (2) Cellulitis and abscess of upper arm and forearm: Status: Acute Assessment and Plan: Plastic Surgery following on antibiotics culture data noted dressing changes as outlined pain control (3) Essential hypertension: Code(s): I10 - Essential (primary) hypertension Status: Chronic Assessment and Plan: reasonable control at this time with #1, would avoid overcontrol at this time follow trend of hemodynamics (4) Type 2 diabetes mellitus: Qualifiers: Diabetes mellitus complication detail: with autonomic neuropathy Diabetes mellitus complication status: with neurologic complications Diabetes mellitus alf insulin use: without tank terminal gauger use Qualified Code(s): E11.43 - Type 2 diabetes mellitus with diabetic autonomic (poly)neuropathy Code(s): E11.9 - Type 2 diabetes mellitus without complications Status: Chronic Assessment and Plan: follow accuchecks glycemic control Will continue to follow. Subjective Date/time seen: 01/11/22 12:45 No new issues or complaints at this time; tolerated dressing change at bedside without any issues or problems; no apparent distress voiced; no events to report overnight or earlier this AM; renal function about the same as noted by AM labs. Exam Narrative: General: WD/WN male in NAD Heart: normal S1 and S2; no rub Lungs: clear to auscultation Abdomen: soft, nontender, nondistended, positive bowel sounds Extremities: no cyanosis or clubbing; trace edema Skin: right arm dressings in place Objective Data Vital Signs Vital Signs: Vital Signs Temp Pulse Resp BP Pulse Ox O2 Del Method 01/10/22 20:00 61 16 96 Room Air 01/10/22 21:34 36.7 C 61 16 135/75 96 01/10/22 18:52 64 01/10/22 14:37 35.9 C L 60 20 131/70 96 Intake/Output Intake/Output: Intake & Output 01/08/22 01/09/22 01/10/22 01/11/22 23:59 23:59 23:59 23:59 Intake Total 4290 3612 3080 2090 Output Total 0675 2750 3400 800 Balance 415 092 -106 1290 Meds/Results Medications: Active Medications Generic Name Dose Route Start Last Admin Trade Name Freq PRN Reason Stop Dose Admin Acetaminophen 1,000 mg 12/26/21 04:45 Acetaminophen 500 Mg Tablet PO Q6H PRN Mild Pain (1-3) or Fever Amiodarone HCl 200 mg 12/26/21 17:00 01/10/22 18:52 Amiodarone Hcl 200 Mg Tablet PO 200 mg DAILY@1700 NANCY Administration Amlodipine Besylate 5 mg 12/26/21 21:00 01/10/22 20:55 Amlodipine Besylate 5 Mg Tablet PO 5 mg HS NANCY Administration Benzocaine 1 lozenge 12/30/21 08:13 12/31/21 04:54 Benzocaine/Menthol (*Bkc) 18 Ea Lozenge PO 1 lozenge PRN PRN Administration Sore Throat Dextrose 12.5 gm 12/30/21 22:39 Dextrose 50% 25 Gm/50 Ml Syringe IV PUSH PRN PRN Hypoglycemia Protocol Docusate Sodium 100 mg 01/01/22 17:56 Docusate Sodium 100 Mg Capsule PO Q12H PRN Constipation Enoxaparin Sodium 40 mg 12/26/21 09:00 01/11/22 08:07 Enoxaparin 40 Mg/0.4 Ml Syringe SUB-Q Not Given DAILY NANCY Furosemide 20 mg 01/02/22 09:00 01/10/22 08:13 Furosemide 20 Mg Tablet PO 20 mg BID NANCY Administration Gabapentin 100 mg 12/26/21 06:00 01/11/22 13:31 Gabapentin 100 Mg Capsule PO 100 mg Q8HR NANCY Administration Glucagon 1 mg 12/30/21 22:39 Glucagon For Inj 1 Mg Vial IM PRN PRN Hypoglycemia Protocol Glucose 15 g
--- NOTE | 2022-01-11 12:45 | P.PNNP_ITS ---
Progress Note: A&P Assessment and Plan (1) URSULA (acute kidney injury): Code(s): N17.9 - Acute kidney failure, unspecified Status: Acute Assessment and Plan: * presumably secondary to #2 and perhaps use of diuretics and NSAIDs * evaluation to date: * renal ultrasound normal * urine lytes non-prerenal (but was on diuretics when collected) * UA unremarkable * urine eosinophils negative * CPK normal * holding diuretics * follow the trend of repeat labs and urine output (2) Cellulitis and abscess of upper arm and forearm: Status: Acute Assessment and Plan: * Plastic Surgery following * on antibiotics * culture data noted * dressing changes as outlined * pain control (3) Essential hypertension: Code(s): I10 - Essential (primary) hypertension Status: Chronic Assessment and Plan: * reasonable control at this time * with #1, would avoid overcontrol at this time * follow trend of hemodynamics (4) Type 2 diabetes mellitus: Qualifiers: Diabetes mellitus complication detail: with autonomic neuropathy Diabetes mellitus complication status: with neurologic complications Diabetes mellitus exterminator termite insulin use: without [facility] use Qualified Code(s): E11.43 - Type 2 diabetes mellitus with diabetic autonomic (poly)neuropathy Code(s): E11.9 - Type 2 diabetes mellitus without complications Status: Chronic Assessment and Plan: * follow accuchecks * glycemic control Will continue to follow. Subjective Date/time seen: 01/11/22 12:45 No new issues or complaints at this time; tolerated dressing change at bedside without any issues or problems; no apparent distress voiced; no events to report overnight or earlier this AM; renal function about the same as noted by AM labs. Exam Narrative: General: WD/WN male in NAD Heart: normal S1 and S2; no rub Lungs: clear to auscultation Abdomen: soft, nontender, nondistended, positive bowel sounds Extremities: no cyanosis or clubbing; trace edema Skin: right arm dressings in place Objective Data Vital Signs Vital Signs: Vital Signs Temp Pulse Resp BP Pulse Ox O2 Del Method 01/10/22 20:00 61 16 96 Room Air 01/10/22 21:34 36.7 C 61 16 135/75 96 01/10/22 18:52 64 01/10/22 14:37 35.9 C L 60 20 131/70 96 Intake/Output Intake/Output: Intake & Output 08/1001/09/22 01/10/22 01/11/22 23:59 23:59 23:59 23:59 Intake Total 4290 3612 3080 2090 Output Total 4191 4250 3400 800 Balance 415 862 -320 1290 Meds/Results Medications: Active Medications Generic Name Dose Route Start Last Admin Trade Name Freq PRN Reason Stop Dose Admin Acetaminophen 1,000 mg 12/26/21 04:45 Acetaminophen 500 Mg Tablet PO Q6H PRN Mild Pain (1-3) or Fever Amiodarone HCl 200 mg 12/26/21 17:00 01/10/22 18:52 Amiodarone Hcl 200 Mg Tablet PO 200 mg DAILY@1700 NANCY Administration Amlodipine Besylate 5 mg 12/26/21 21:00 01/10/22 20:55 Amlodipine Besylate 5 Mg Tablet PO 5 mg HS NANCY Administration Benzocaine 1 lozenge 12/30/21 08:13 12/31/21 04:54 Benzocaine/Menthol (*Bkc) 18
[2022-01-11] MEDS: oxyCODONE/ACETAMINOPHEN (*CRX) 10-325 MG TABLET 1 TAB PO ×2 (15:44→22:21)
[2022-01-11 16:29] LABS: Glucose Point of Care 142 mg/dl (65-105)
[2022-01-11 17:16] VITALS: PULSE 76
[2022-01-11] MEDS: AMIODARONE HCL 200 MG TABLET PO (17:16)
[2022-01-11 20:00] VITALS: PULSE 67; RESP 16; O2SAT 97
[2022-01-11] MEDS: amLODIPine BESYLATE 5 MG TABLET PO (21:09)
[2022-01-11] MEDS: INSULIN GLARGINE (*BKC) 100 UNITS/ML 15 UNITS SUB-Q (21:09)
[2022-01-11 21:19] VITALS: BP 148/74; PULSE 67; RESP 16; TEMP 36.4; O2SAT 97
[2022-01-11 21:49] LABS: Glucose Point of Care 139 mg/dl (65-105)
[2022-01-12] MEDS: SODIUM CHLORIDE 0.9% IV 1,000 ML 75 ML IV CONT (03:20)
[2022-01-12] MEDS: MAGNES & ALUM HYD/SIMETH/DIPHENHYD/LIDOCAINE 119 ML MOUTHWASH BY MOUTH ×5 (04:15→20:07)
[2022-01-12] MEDS: GABAPENTIN 100 MG CAPSULE PO ×2 (04:16→16:13)
[2022-01-12] MEDS: CENTRAL LINE FLUSH 10 ML IV PUSH (04:17)
[2022-01-12] MEDS: LEVOTHYROXINE SODIUM 50 MCG TABLET PO (04:17)
[2022-01-12 05:04] LABS: Anion Gap 7 mmol/L (8-16); Blood Urea Nitrogen 19 mg/dL (9-20); Calcium 7.9 mg/dL (8.4-10.2); Carbon Dioxide 31 mmol/L (22-30); Chloride 101 mmol/L (98-107); Estimated CRCL calculation 63 ml/min; Estimated Glomerular Filt Rate 47; Glucose 129 mg/dL (65-110); Potassium 3.7 mmol/L (3.4-5.0); Sodium 139 mmol/L (137-145)
[2022-01-12] MEDS: DOCUSATE SODIUM 100 MG CAPSULE PO ×2 (06:22→09:03)
[2022-01-12 07:40] LABS: Glucose Point of Care 130 mg/dl (65-105)
[2022-01-12] MEDS: INSULIN ASPART (*BKC) 100 UNITS/ML 6 UNITS SUB-Q ×3 (08:49→16:56)
[2022-01-12] MEDS: DOXYCYCLINE 100 MG/NS 100 ML 100 MG/100 ML BAG IVPB (08:50)
[2022-01-12] MEDS: PANTOPRAZOLE SOD SESQUIHYDRATE 20 MG TAB PO (08:51)
[2022-01-12] MEDS: TAMSULOSIN HCL 0.4 MG CAPSULE PO (08:52)
[2022-01-12] MEDS: oxyCODONE/ACETAMINOPHEN (*CRX) 10-325 MG TABLET 1 TAB PO ×3 (09:03→21:04)
--- NOTE | 2022-01-12 10:48 | PM.DS ---
DS: Admitting Diagnosis Discharge Date January 12, 2022 Admitting Diagnosis Cellulitis with abscess, right arm DS: Discharge Diagnosis Discharge Diagnosis (1) Sepsis: Onset Date: ~01/12/22 Code(s): A41.9 - Sepsis, unspecified organism Status: Acute Assessment and Plan: Present on admission. Resolved (2) Cellulitis of right upper extremity: Code(s): L03.113 - Cellulitis of right upper limb Status: Acute Assessment and Plan: IV antibiotics with doxycycline transitioned to oral on discharge. Oxycodone/acetaminophen for pain control (3) Atrial fib/flutter, transient: Status: Acute Assessment and Plan: continue amiodarone Not on anticoagulation. Does not follow With any research laboratory technician. This will need to be addressed bedrest down the road. Patient does have open wounds that are significant of the right upper extremity. 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 Status: Acute Assessment and Plan: unchanged (5) Essential hypertension: Code(s): I10 - Essential (primary) hypertension Status: Chronic Assessment and Plan: continue home meds (6) Type 2 diabetes mellitus: Qualifiers: Diabetes mellitus fdc insulin use: without assistant terminal manager use Diabetes mellitus complication status: with neurologic complications Diabetes mellitus complication detail: with autonomic neuropathy Qualified Code(s): E11.43 - Type 2 diabetes mellitus with diabetic autonomic (poly)neuropathy Code(s): E11.9 - Type 2 diabetes mellitus without complications Status: Chronic Assessment and Plan: Continue diabetic medications on discharge (7) URSUAL (acute kidney injury): Code(s): N17.9 - Acute kidney failure, unspecified Status: Acute Assessment and Plan: likely secondary to sepsis versus antibiotics, improving Creatinine days 1.5. Baseline is 1.0-1.2. Monitor on discharge. (8) Urinary retention: Code(s): R33.9 - Retention of urine, unspecified Status: Acute Assessment and Plan: Monitor on discharge (9) Hyponatremia: Code(s): E87.1 - Hypo-osmolality and hyponatremia Status: Acute Assessment and Plan: continue with fluid restriction, provide gentle IV fluid resusitation limit free water intake Improved Plan Morbid obesity Suspect underlying sleep apnea apnea will do apnea link test Conversational dyspnea no formal lung diagnosis reported. Will check echocardiogram does have history of atrial fibrillation but remains in sinus rhythm he is on chronic amiodarone therapy so lung toxicity related to chronic amiodarone therapy is possibility as well may need high-resolution CT scan to further evaluate his dyspnea. Will check his BNP as well as underlying congestive heart failure is suspected as well. Will give a dose of Lasix today for his lower extremity edema and overall hypervolemia and follow clinical course. He is also quite positive since admission. Cumulative 14 L positive. Weight is up 6 kilos but has not been checked since past few days. Will put on weight every day. . # No lower extremity edema attributes to his amlodipine. With conversational dyspnea noted no prior diagnosis of COPD or any lung disease along with a nonsmoker/ never smoker status. Suspect congestive heart failure. Check echo BNP diuresis except as delineated above. 01/01/2022 interval history 66-year-old male admitted with right upper extremity cellulitis patient blood culture is negative for any bacterial growth there was no drainage from the wound and wound cultures collected, patient has some fears her erythematosus and edema to upper extremity DVT was negative, patient is being treated with Zosyn and vancomycin right upper extremity cellulitis discussed with ID pharmacy recommended to continu
[2022-01-12 11:32] LABS: Glucose Point of Care 148 mg/dl (65-105)
[2022-01-12 12:30] LABS: EDCOVIDSCREEN Negative (Negative)
[2022-01-12 16:57] VITALS: PULSE 76
[2022-01-12] MEDS: AMIODARONE HCL 200 MG TABLET PO (16:57)
[2022-01-12 17:33] LABS: Glucose Point of Care 120 mg/dl (65-105)
[2022-01-12] MEDS: NEOMYCIN/POLYMYXIN/BACITRACIN OINTMENT PACKET 1 PACKET (18:19)
[2022-01-12] MEDS: amLODIPine BESYLATE 5 MG TABLET PO (20:07)
[2022-01-12] MEDS: INSULIN GLARGINE (*BKC) 100 UNITS/ML 15 UNITS SUB-Q (20:12)
[2022-01-12 22:00] VITALS: BP 136/72; PULSE 77; RESP 20; TEMP 37.1; O2SAT 97
[2022-01-13 02:58] LABS: Glucose Point of Care 243 mg/dl (65-105)
[2022-01-14 13:59] LABS: Chloride Rand Ur 128 mmol/L (32-290); Chloride/Creatinine Rand Ur 160 (23-275); Creatinine Random Urine 80 mg/dL (20-320)
== END 2022-01-12 21:20 | DRG 720 ==
LOC: ANHED 00:34 → ANH3MEDSUR 02:00
PROVIDERS: Family Medicine; Internal Medicine; Internal Medicine Nephrology; Nurse Practitioner Family; Orthopaedic Surgery; Plastic Surgery; Admitting Provider Internal Medicine; Emergency Provider Emergency Medicine; PCP Internal Medicine; Visit Provider Chiropractor
PROC: 0J9J0ZX Drainage of Right Hand Subcutaneous Tissue and Fascia, Open Approach, Diagnostic (ICD-10-PCS; principal; 2022-01-03 14:00)
PROC: 0JBG0ZZ Excision of Right Lower Arm Subcutaneous Tissue and Fascia, Open Approach (ICD-10-PCS; principal; 2022-01-05 07:30)
PROC: 2W0CX6Z Change Pressure Dressing on Right Lower Arm (ICD-10-PCS; principal; 2022-01-08 10:30)
DX: A41.9 Sepsis, unspecified organism (principal); L02.413 Cutaneous abscess of right upper limb; L03.113 Cellulitis of right upper limb; B95.61 Methicillin susceptible Staphylococcus aureus infection as the cause of diseases classified elsewhere; E11.43 Type 2 diabetes mellitus with diabetic autonomic (poly)neuropathy; I10 Essential (primary) hypertension; G60.0 Hereditary motor and sensory neuropathy; Z20.822 Contact with and (suspected) exposure to COVID-19; I48.92 Unspecified atrial flutter; E87.1 Hypo-osmolality and hyponatremia; T36.95XA Adverse effect of unspecified systemic antibiotic, initial encounter; E66.01 Morbid (severe) obesity due to excess calories; N17.8 Other acute kidney failure; Z68.41 Body mass index [BMI] 40.0-44.9, adult; D72.829 Elevated white blood cell count, unspecified; N40.1 Benign prostatic hyperplasia with lower urinary tract symptoms; R33.8 Other retention of urine; E87.2 Acidosis; I48.0 Paroxysmal atrial fibrillation; E78.5 Hyperlipidemia, unspecified; F41.9 Anxiety disorder, unspecified; M19.90 Unspecified osteoarthritis, unspecified site; K21.9 Gastro-esophageal reflux disease without esophagitis; E03.9 Hypothyroidism, unspecified; G47.30 Sleep apnea, unspecified; Z86.16 Personal history of COVID-19
CPT/HCPCS: 36415; 36556; 36569; 71045; 73090; 73200; 76775; 76882; 80048; 80053; 80202; 81003; 81050; 82436; 82550; 82565; 82570; 82948; 83036; 83605; 83735; 83880; 84100; 84156; 84300; 85025; 85027; 85610; 85652; 85730; 85999; 86060; 86140; 87040; 87070; 87077; 87186; 87205; 87426; 93970; 93971; 94640; 96365; 99285; A9270; C1751; C9803; J0131; J0330; J0456; J0690; J1170; J1650; J1815; J1940; J2250; J2270; J2405; J2543; J2704; J3010; J3370; J7030; J7120; U0003; U0005

== ENCOUNTER 2022-12-29 12:36 | Outpatient (RCR) | payer BC, SELFPAY ==
--- NOTE | 2022-12-29 14:12 | OTOPDC ---
Assessment and note entered by OLGA Alanis/Emerson, CHT Evaluation Information Assessment Status Evaluation Subjective Information Dx: L97.526, M21.072, M21.272, M21.372, M25.561, M25.572, M47.816, M79.601 Patient referred for power w/c evaluation. Reported Pain Level Pain Score 3,3: Self Report Assessment OT Clinical Summary Carl is unable to safely and independently ambulate household distances due to his current impairments of decreased joint motion, pain, decreased functional standing balance, and weakness. He demonstrates significant functional mobility limitations that impair their ability to safely participate in mobility-related ADLs. These limitations cannot be sufficiently resolved by the use of an appropriately fitted cane, walker, manual w/c, or scooter. A power w/c will significantly improve his ability to safely complete ADLs and provide safe means of functional mobility necessary for completion of MRADLs. 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 He is unable to propel a manual w/c secondary to shoulder weakness and pain. He is unable to safely transfer on/off a scooter. He has been evaluated and demonstrates the gross motor, fine motor, and cognitive ability to safely operate the power w/c. Without the use of a power w/c, this patient would be confined to a chair or bed.
== END 2022-12-29 15:18 | disposition home or self-care (01) ==
LOC: ANHOT 12:36
PROVIDERS: PCP Internal Medicine; Visit Provider Nurse Practitioner Adult Health
DX: L97.526 Non-pressure chronic ulcer of other part of left foot with bone involvement without evidence of necrosis (principal)
CPT/HCPCS: 97167